=== PATIENT | male | born 1945 | race Caucasian/White ===

== ENCOUNTER 2017-02-02 05:06 | Inpatient (IN) | payer OTHER ==
--- NOTE | ~2017-02-02 | CN ---
Consultation Report [facility] [address] [place]. [address] NAME: GALLO VALENTINE : 49 STATUS : ADM Sandra PAT#: [id number] AGE: 71 ADM/REG DATE : 02/02/17 MR#: [id number] REPORT SERV DATE: 02/05/17 DICTATED BY: BLANK HOFFMAN DATE: 02/05/17 REPORT STATUS : Draft TRANSCRIBED BY: MODL DATE: 02/05/17 CONSULTATION REPORT DATE OF CONSULTATION: 02/05/2017 NURSE-PRACTITIONER WITH [facility] REASON FOR CONSULTATION: Severe mitral valve regurgitation. HISTORY OF PRESENT ILLNESS: This is a pleasant 71-year-old obese male, who has a history of coronary artery disease and paroxysmal atrial fibrillation. He was actually admitted at [facility] last week with shortness of breath and found to be in atrial fibrillation, had an accelerated rate. He underwent cardioversion at [facility] and was successfully cardioverted into sinus rhythm. He was discharged home on Thursday. About two to three days later, the patient says that he was at home and developed shortness of breath and fatigue again and presented to the emergency room at [facility] on 02/02/2017 for evaluation in the emergency room. The patient was found to be in atrial fibrillation with heart rate controlled. Chest x-ray did show pulmonary edema, and his creatinine was elevated up to 2.5, his baseline creatinine is around 1.5-1.6. The patient was admitted with acute exacerbation of congestive heart failure, acute kidney injury, and atrial fibrillation. The patient was taken for transthoracic echocardiogram yesterday which showed his ejection fraction is somewhere around 40% with apical hypokinesis and severe degeneration of his mitral valve with severe mitral regurgitation. The patient is currently not having any symptoms of shortness of breath or fatigue. He remains in atrial fibrillation but his heart rate is controlled in the 70s to 80s. His other vital signs are stable and is maintaining adequate O2 saturations on room air. His creatinine has been improving, but his INR is 2.6. Cardiology is awaiting for his INR to be lower so that they can take him for cardiac catheterization. Cardiothoracic Surgery was consulted for evaluation of mitral valve replacement with Maze plus or minus coronary artery bypass grafting. PAST MEDICAL HISTORY: Coronary artery disease, paroxysmal atrial fibrillation, type 2 diabetes mellitus, high blood pressure, erectile dysfunction, depression, hyperlipidemia, and distant CVA. PAST SURGICAL HISTORY: Only PCI in 2014. FAMILY HISTORY: Reviewed and noncontributory. SOCIAL HISTORY: Denies any history of alcohol abuse, use of illicit drugs, or alcohol. ALLERGIES: NO KNOWN DRUG ALLERGIES. HOME MEDICATIONS: Elavil 10 mg p.o. daily, amlodipine 10 mg p.o. daily, atorvastatin 20 mg Consultation Report [address] [address] NAME: GALLO VALENTINE : 49 STATUS : ADM Sandra PAT#: [id number] AGE: 71 ADM/REG DATE : 02/02/17 MR#: [id number] REPORT SERV DATE: 02/05/17 DICTATED BY: BLANK HOFFMAN DATE: 02/05/17 REPORT STATUS : Draft TRANSCRIBED BY: JUAN C DATE: 02/05/17 p.o. at bedtime, folic acid 1 mg p.o. daily, glipizide 10 mg twice a day, lisinopril 40 mg every morning, metformin 1500 mg p.o. twice a day, metoprolol succinate 50 mg p.o. twice a day, omega-3 fatty acid 1 g p.o. twice a day, tamsulosin 0.8 mg p.o. daily, Coumadin 4 mg p.o. daily, amiodarone 400 mg p.o. twice a day, and Lasix 40 mg p.o. daily. REVIEW OF SYSTEMS: A 10-point review of systems was obtained and is negative other than HPI. LABORATORY DATA: White blood cell count 6.2, hemoglobin 11.5, hematocrit 34.2, platelets 183. Sodium 144, potassium 3.7, chloride 108, bicarbonate 25, BUN 33, creatinine 2.0, glucose 139. PHYSICAL EXAMINATION: VITAL SIGNS: From today temperature 97.8, heart rate 75, blood pressure 128/89, respiratory rate 16, and O2 saturation 92% on room air. GENERAL: A pleasant obese male, in no acute distress. PSYCH: Normal mood, talkative, pleasant. NEURO: Alert and oriented x3. Pupils are equal, round, and reactive to light and accommodation. The patient exhibits moderate and equal strength bilateral upper extremities and bilateral lower extremities. HEENT: Head normocephalic and atraumatic. Nose midline with no abnormalities. Ears with no abnormalities. Teeth with good dentition overall. NECK: Supple with no thyromegaly or lymphadenopathy. LUNGS: Clear to auscultation bilaterally with normal effort. CARDIAC: S1, S2 with apical systolic murmur, atrial fibrillation with heart rate 75. ABDOMEN: Obese, soft, nontender, with active bowel sounds. EXTREMITIES: Free of cyanosis, clubbing, or edema. ASSESSMENT AND PLAN: This is a pleasant 71-year-old male with a history of coronary artery disease, congestive heart failure, paroxysmal atrial fibrillation. He has had two hospital admissions in the last week for shortness of breath and atrial fibrillation, underwent transesophageal echocardiogram yesterday which showed severe degeneration of his mitral valve with severe mitral valve regurgitation, an ejection fraction around 40%. CT Surgery has been consulted for evaluation of mitral valve repair versus replacement with Maze, but we are currently awaiting cardiac catheterization which cannot be performed at this time because the patient's INR is 2.6. We discussed the need for what most likely will be a mitral valve replacement with the patient and why we would need to wait for cardiac catheterization before proceeding with surgery, and he states understanding. STS stratification will be done once I know for sure what surgery we are needing. We will await cardiac catheterization to determine if he is going to need a mitral valve replacement with CABG or if his mitral valve surgery can be done minimally invasive. Dr. Reilly was present to discuss the surgery with the patient. We would like to thank you for the consultation, and we look forward to helping you take Consultation Report [address] [address] NAME: GALLO VALENTINE : 49 STATUS : ADM Sandra PAT#: [id number] AGE: 71 ADM/REG DATE : 02/02/17 MR#: [id number] REPORT SERV DATE: 02/05/17 DICTATED BY: BLANK HOFFMAN DATE: 02/05/17 REPORT STATUS : Draft TRANSCRIBED BY: JUAN C DATE: 02/05/17 care of Mr. Gallo Valentine. ANTHONY/JUAN C Blank Hoffman NP / [id number] CC: Jenna Mosley M.D. Tiago Olmos M.D.
--- NOTE | ~2017-02-02 | OP ---
Record Of Operation [facility] [address] [place]. [address] NAME: SARAN VALENTINE : 49 STATUS : ADM IN PAT#: [id number] AGE: 71 ADM/REG DATE : 02/02/17 MR#: [id number] REPORT SERV DATE: 02/12/17 DICTATED BY: VINNY MCKEE DATE: 02/11/17 REPORT STATUS : Draft TRANSCRIBED BY: MODGurinder DATE: 02/11/17 DATE OF PROCEDURE: 02/11/2017 PHOTOGRAPHIC SPECIALIST: Krishna Lacey. ANESTHESIOLOGIST: Christ Bradshaw MD. PREOPERATIVE DIAGNOSES: 1. Severe mitral regurgitation. 2. Persistent atrial fibrillation. 3. Coronary artery disease. 4. Chronic kidney disease, stage III. 5. Hypertension. 6. Hyperlipidemia. POSTOPERATIVE DIAGNOSES: 1. Severe mitral regurgitation. 2. Persistent atrial fibrillation. 3. Coronary artery disease. 4. Chronic kidney disease, stage III. 5. Hypertension. 6. Hyperlipidemia. OPERATION AND PROCEDURE PERFORMED: 1. Median sternotomy. 2. Extracorporeal circulation. 3. Mitral valve replacement with [address] Sam epic Biocor mitral valve. 4. Extensive right and left atrial CryoMaze. 5. Left atrial appendage clip with 40 mm AtriCure clip. 6. Transesophageal echo. 7. Prevena dressing placement. 8. Right internal jugular Vas-Cath placement. COMPLICATIONS: None. TUBES AND DRAINS: A 32-Luxembourgish straight chest tube in the mediastinum, atrial and ventricular wires. POSTOPERATIVE CONDITION: Critical to CVICU. The patient weaned from cardiopulmonary bypass on 5 of dobutamine, 7 of Levophed, and 0.375 of Milrinone. INTRAOPERATIVE FINDINGS: On transesophageal echo, there was no clot in the left atrial appendage. Mitral valve was tented at 1.2 cm. On transesophageal echo, there is poor mobility of the posterior leaflet. His EF was approximately 35% to 40% with hypokinesis of all prieto and dilated left ventricle. His postprocedure, the valve was well seated with no perivalvular leak. Record Of Operation [facility] [address] [place]. [address] NAME: SARAN VALENTINE : 49 STATUS : ADM IN PAT#: [id number] AGE: 71 ADM/REG DATE : 02/02/17 MR#: [id number] REPORT SERV DATE: 02/12/17 DICTATED BY: VINNY MCKEE DATE: 02/11/17 REPORT STATUS : Draft TRANSCRIBED BY: JUAN C DATE: 02/11/17 INTRAOPERATIVE ANATOMIC FINDINGS: The mitral valve had a tethered posterior leaflet with thickened and retracted leaflets, both anterior and posterior, and poor mobility of the leaflets. The valve was placed, was sized initially to a 31 mm Epic Biocor valve. Supraannular sutures were placed after resection of the most of the anterior leaflet. The posterior leaflet and the commissures were preserved during resection of the leaflet. The valve was sized to 31. A 20 pledgeted sutures were used. The sutures were passed through the sewing ring of the valve. The valve was lowered into position and the commissure post were anchored, and one other suture was anchored on the fifth cor-knot. The cor-knot device cut the suture, but did not deploy the chorda. In order to do this, the valve had to be removed. The four other cor-knots that have been fired were removed and the valve was removed from the heart. Four of the pledgets were found readily, the fifth pledget appeared to have been sucked up the Cell Saver. The valve stitches that had been removed were then replaced and placed back through the sewing ring of the valve, while the Cell Saver was disassembled off the table. The pledget was in the filter of the Cell Saver and the valve was attempted to be replaced. In order to get this cor-knots out, I had to remove the valve from its brock and was unable to get the valve back through the mitral annulus secondary to the fact that the post of the valve had sprung to a normal position. Unfortunately, there was no other mitral valve 31 mm Epic Bicor mitral valve available, so I downsized and went with a 29 valve. Sutures were removed from the sewing ring of the valve and then using a Luxembourgish-eye needle, placed back through the sewing ring 29 mm. A 29 mm valve was lowered into position and then using cor-knots was anchored into position. The details of the CryoMaze lesions were done. All lesions were done at -60 degrees for 2 minutes. First lesion was SVC to IVC lesion, second lesion was the right atrial appendage lesion, third lesion was at 2 o'clock across the tricuspid annulus lesion. Next lesion was the box lesion on the floor of the left atrium for a pulmonary vein isolation. This required 3 individual Cryo-Freezes. Next the lesion was across the box to the mitral anulus. The last lesion was across coronary sinus is an epicardial lesion, and the final portion of the procedure was a 40 mm atrial clip. INDICATIONS FOR PROCEDURE: Mr. Valentine is a 71-year-old gentleman with a history of coronary disease, who presented in congestive heart failure with flash pulmonary edema. He was able to undergo a heart catheterization secondary to his chronic kidney disease, was found to have clean coronaries, but severe MR on both HARDY echo and heart catheterization. The patient was attempted to be sent home, but, however, had a third episode of flash pulmonary edema, was kept in the hospital. He was seen. Risks, benefits, and alternatives were discussed, and the patient was brought to the operating room. STS risk score was discussed with the patient. Mortality of less than 10% and a morbidity mortality of less than 30% were discussed with the patient. All questions were answered. DETAILS OF PROCEDURE: The patient was brought to the operating room, placed supine on the operating room table. After satisfactory induction of general endotracheal anesthesia, he was prepped and draped in the usual sterile fashion. Median sternotomy was performed. Skin, subcutaneous tissues were divided, clavipectoral fascia was divided. The sternum was divided in the midline. Sternal retractor was placed. The thymic tissue was divided in midline. Pericardium was opened in the midline until the diaphragm. Pericardial well was created. Systemic heparinization was achieved. Ascending aorta was cannulated and the base Record Of Operation [address] [place]. [address] NAME: SARAN VALENTINE : 49 STATUS : ADM IN PAT#: [id number] AGE: 71 ADM/REG DATE : 02/02/17 MR#: [id number] REPORT SERV DATE: 02/12/17 DICTATED BY: VINNY MCKEE DATE: 02/11/17 REPORT STATUS : Draft TRANSCRIBED BY: JUAN C DATE: 02/11/17 of the innominate artery through dual pursestring. Antegrade root vent cardioplegia tack was placed and a dual stage venous cannula was placed in the pursestring on the right atrial appendage. After documentation of an adequate ACT, cardiopulmonary bypass was initiated. The right-sided Maze lesions were then performed as mentioned in the findings. The heart was then lifted and the left atrial appendage was sized to a 40 mm atrial clip. Cross-clamp was brought up. The heart was arrested with 2 L of cold crystalloid Custodiol cardioplegia. The Sondergaard's groove was developed and the left atrium was then opened. The heart was elevated and the atrial clip was then placed at the base of the left atrial appendage. The left atriotomy was extended and the cryolesions were then performed on the left atrial side as mentioned in the findings. Mitral valve retaining basket was then placed and the valve was inspected. The valve had tethered posterior leaflet with thickened and retracted anterior posterior leaflets with very poor mobility of the leaflet. The anterior leaflet was then quadrangularly resected for the large portion of the anterior leaflet. The chordal structures were preserved along the posterior leaflet and at the commissures. Twenty pledgeted sutures were placed with the pledgets on the ventricular side of the annulus. The valve was sized to a 31 mm valve. Sutures were placed through the sewing ring of the valve. The valve was lowered into position. Core-knots were used to anchor the valve. Unfortunately, the fifth cor-knot cut the suture, but did not fire the cor-knot, and the valve had to be removed. The brock had to be taken off the valve in order to get to the cor-knots. Four of the pledgets were easily found, the fifth pledget was appeared to be aspirated in the Cell Saver. While the Cell Saver was being disassembled outside the room in order to search for the pledget in the filter, the five pledgeted sutures were replaced and these were placed back through the sewing ring of the 31 valve. The valve was attempted to be lowered into position, however, could not get it through the annulus secondary to it being off the brock. Valve was then discarded, there was no other 31 mm valve so a 29 mm Epic Biocor was chosen. Sutures were placed through the sewing ring of the valve. The valve was lowered into position and then anchored into position using the cor-knots. 20 core knots were used. The valve was well seated. Did not appear to be any problem with the valve. The Olivia was placed across it and the left atrium was then closed in two layers. Atrial and ventricular pacing wires were placed. De-airing was performed and the cross- clamp was removed. The patient was loaded with milrinone, dobutamine was resumed, and Levophed was started. The patient was able to be weaned from cardiopulmonary bypass after interrogating the valve. The valve was well seated without a perivalvular leak. The Olivia was removed. The left atriotomy was completed. Vigorous de-airing maneuvers were performed prior to removing the Olivia. The aortic root vent was removed. The pursestring was tied down. The area was oversewn with 4-0 Prolene. The right atriotomy for the tricuspid annular lesion was again oversewn with a 4-0 Prolene. The patient was weaned from cardiopulmonary bypass. Protamine was administered. He appeared to be coagulopathic, 2 units of FFP and two 6 packs of platelets were administered. The patient appeared to be hemostatic. The aortic site was oversewn with 4-0 Prolene. The right atrial cannulation site was oversewn with 4-0 Prolene. A 32-Luxembourgish chest tube was exteriorized and placed under the sternum. Pericardium was loosely reapproximated using 2-0 silk. The sternum was then reapproximated using 8 stainless steel sternal wires. Some of these were double wires. Clavipectoral fascia was reapproximated using #1 Stratafix. Subcutaneous tissues were closed using Stratafix and the skin and subcutaneous tissues closed using 2-0 Quill. Prevena dressing was placed and the procedure was terminated. At the end of the procedure, the right IJ Vas-Cath was placed using modified Seldinger technique. The neck was prepped Record Of Operation [facility] [address] [place]. [address] NAME: SARAN VALENTINE : 49 STATUS : ADM IN [facility]#: [id number] AGE: 71 ADM/REG DATE : 02/02/17 MR#: [id number] REPORT SERV DATE: 02/12/17 DICTATED BY: VINNY MCKEE DATE: 02/11/17 REPORT STATUS : Draft TRANSCRIBED BY: MODL DATE: 02/11/17 and sangita. A guidewire was introduced into the right IJ under ultrasound guidance by Dr. Bradshaw. A wire was placed in the right atrium. Wire was visualized into the superior vena cava using ultrasound guidance. Following this, the tract was successively dilated over the wire and then a 14-Luxembourgish dual-lumen Vas-Cath cannula was placed, it was anchored in position, flushed, and the procedure was terminated. The patient was transferred to CVICU in critical, stable condition. [facility]/MALIKL Vinny Mckee MD / [id number] CC: Vinny Mckee MD
--- NOTE | ~2017-02-02 | CN ---
Consultation Report [facility] [address] [place]. [address] NAME: SARAN HAWKINS : 49 STATUS : ADM IN [facility]#: [id number] AGE: 71 ADM/REG DATE : 02/02/17 MR#: [id number] REPORT SERV DATE: 02/13/17 DICTATED BY: LASHONDA VEE DATE: 02/13/17 REPORT STATUS : Draft TRANSCRIBED BY: JUAN C DATE: 02/13/17 CONSULT NOTE DATE OF CONSULTATION: 02/13/2017 CONSULT REQUESTED BY: Dr. Reilly. REASON FOR CONSULT: Diabetes management, postop. HISTORY OF PRESENT ILLNESS: This is a 71-year-old gentleman with medical history significant for coronary artery disease, status post PCI in 2013, congestive heart failure, atrial fibrillation, diabetes mellitus type 2 on oral hypoglycemics at home, who presented to the hospital with complaints of worsening shortness of breath, found to have atrial fibrillation with RVR. He underwent a HARDY that shows severe mitral regurgitation. Also underwent a coronary angiogram, which showed nonocclusive coronary artery disease. Cardiovascular Surgery was consulted for mitral valve replacement. The patient underwent a mitral valve replacement surgery on 02/11/2017 with successful placement of [address] Sam epic Biocor mitral valve as well as an extensive right and left atrial CryoMaze procedure. Postop, the patient was placed on insulin drip for blood sugar control. Hospitalist Service was consulted to help in management of the patient's blood sugar control and transition from insulin drip to subcu insulin. The patient reports that he was diagnosed with type 2 diabetes mellitus about four years ago. Takes oral hypoglycemics, metformin and glipizide at home for blood sugar control. He reports that he does not monitor his blood sugar like is supposed to. He denies any hypoglycemic episode at home. He has not had any hypoglycemic episodes during the course of this admission. The patient denies any lightheadedness, dizziness, dysuria, flank pain. Denies any polyuria. REVIEW OF SYSTEMS: 12-point review of system conducted, essentially negative. PAST MEDICAL HISTORY: 1. Type 2 diabetes mellitus. 2. Coronary artery disease, status post anterior myocardial infarction with baseline ejection fraction of 50%. 3. Paroxysmal atrial fibrillation, severe mitral regurgitation. 4. History of hypertension. 5. Obstructive sleep apnea. 6. History of CVA without any residual deficit. 7. History of depression. 8. History of erectile dysfunction. 9. Dyslipidemia. Consultation Report [facility] [address] [place]. [address] NAME: SARAN HAWKINS : 49 STATUS : ADM IN PAT#: [id number] AGE: 71 ADM/REG DATE : 02/02/17 MR#: [id number] REPORT SERV DATE: 02/13/17 DICTATED BY: LASHONDA VEE DATE: 02/13/17 REPORT STATUS : Draft TRANSCRIBED BY: JUAN C DATE: 02/13/17 PAST SURGICAL HISTORY: Significant for previous PCI intervention. FAMILY HISTORY: Denies any family history of coronary artery disease, but has positive family history for diabetes and hypertension. SOCIAL HISTORY: The patient quit drinking alcohol several years ago. He reports that he has been abstaining from alcohol for about 30 years now. Denies smoking cigarettes or illicit drug use. ALLERGIES: NO KNOWN DRUG ALLERGIES. MEDICATIONS: Home medications on presentation to the hospital: 1. Amitriptyline 10 mg p.o. every morning. 2. Norvasc 10 mg p.o. daily. 3. Atorvastatin 20 mg p.o. morning. 4. Coreg 6.25 mg p.o. b.i.d. 5. Folic acid 1 mg p.o. daily. 6. Glipizide 20 mg p.o. every morning. 7. 10 mg of glipizide every evening. 8. Lisinopril 40 mg p.o. daily. 9. Glucophage 1500 mg p.o. b.i.d. 10.[place]-3 fatty acid 1000 mg p.o. daily. 11.Tamsulosin 0.8 mg p.o. daily. 12.Amiodarone 400 mg p.o. b.i.d. 13.Aspirin 81 mg p.o. daily. 14. mg p.o. p.r.n. PHYSICAL EXAMINATION: VITAL SIGNS: Blood pressure 105/57 mmHg, heart rate 62 beats per minute, temperature 99, saturating 96% on 2 L of oxygen. GENERAL: Alert and oriented, not in any acute distress. HEENT: Extraocular muscles intact. Pupils equal, round, and reactive. Not pale. Anicteric. NECK: A right internal jugular central line catheter in place. CHEST: Surgical sternotomy scar in place with dressing intact. LUNGS: Clear to auscultation bilaterally. HEART: Regular rate and rhythm. S1, S2. No murmurs. ABDOMEN: Bowel sounds normoactive. Obese. No palpably enlarged organomegaly. EXTREMITIES: Lower extremities, no pedal edema. LABORATORY DATA: Serum sodium 134, potassium 4.7, chloride 104, bicarb 19, BUN 53, creatinine 2.54. Calcium 7.9, magnesium 2.6, phosphorus 5.2. TSH 2.1. Free T4 is 0.9. A1c 6.4. Hematology WBC 7.1, hemoglobin 8.8, platelets 156. ASSESSMENT: This is a 71-year-old gentleman with medical history significant for congestive Consultation Report [address] [place]. [address] NAME: SARAN HAWKINS : 49 STATUS : ADM IN [facility]#: [id number] AGE: 71 ADM/REG DATE : 02/02/17 MR#: [id number] REPORT SERV DATE: 02/13/17 DICTATED BY: LASHONDA VEE DATE: 02/13/17 REPORT STATUS : Draft TRANSCRIBED BY: JUAN C DATE: 02/13/17 heart failure, paroxysmal atrial fibrillation, severe mitral regurgitation, successfully undergone a mitral valve replacement surgery postop. Currently tolerating p.o., now on insulin drip. Blood sugars remained stable. At this time, I will recommend the patient to be started on subcutaneous insulin of Levemir 12 units and continue aspart 3 units premeal as well as level 2 sliding scale and to continue to monitor blood glucose Accu-Chek a.c. plus h.s. Also, we will recommend ADA 1800 calorie diet. The patient can be started on hypoglycemic protocol. We will continue to monitor blood sugar closely. The Hospitalist Service will continue to follow the patient for diabetes management during the course of this admission. Thank you very much for this interesting consult. UMESHO/JUAN C Lashonda Vee MD / [id number] CC: Jenna Mosley M.D.
--- NOTE | ~2017-02-02 | HP ---
History And Physical [address] [place]. [address] NAME: SARAN VALENTINE : 49 STATUS : ADM Sandra PAT#: [id number] AGE: 71 ADM/REG DATE : 02/02/17 MR#: [id number] REPORT SERV DATE: 02/02/17 DICTATED BY: ARPIT PEREZ DATE: 02/02/17 REPORT STATUS : Draft TRANSCRIBED BY: MODL DATE: 02/02/17 DATE OF ADMISSION: 02/02/2017 CARDIOLOGY ADMISSION HISTORY AND PHYSICAL IDENTIFYING DATA: The patient is a 71-year-old man with history of anterior myocardial infarction, status post PCI in the year 2013, as well as multiple other medical problems including paroxysmal atrial fibrillation. CHIEF COMPLAINT: The patient is admitted with a two- to three-day history of progressive weakness and exertional dyspnea, associated with indigestion type epigastric pain. HISTORY OF PRESENT ILLNESS: Mr. Valentine is a pleasant 71-year-old man, who is well known to me from [facility]. The patient was in his usual state of health until about five days ago. The patient had last been seen in [facility] in November of 2016. At that time, he was asymptomatic. About five days ago, the patient presented to [facility] Emergency Room with the abrupt onset of weakness and shortness of breath. He was found to be in atrial fibrillation with a rapid ventricular response. According to my discussions with the emergency room physician at [facility], the patient's ventricular rate had initially been in the 150 to 160 range, though this improved with medical therapy. The physician at [facility] did not report any evidence of acute systolic heart failure at that time. On my recommendation, the patient underwent DC cardioversion with nondenominational of normal sinus rhythm. He was started on amiodarone at a dose of 400 mg p.o. twice daily. The patient was discharged to home. About two to three days following discharge from [facility] Emergency Room, the patient had recurrence of fatigue and dyspnea. The patient reports that he was taking extra Lasix because of these symptoms. He has been taking 40 mg daily, but was taking an extra two to three tablets due to his symptoms. When the patient failed to get relief, he finally presented to [facility] Emergency Room. The patient was again found to be in atrial fibrillation, though at this point, his heart rate appears to be well controlled. The patient was found to have acute pulmonary edema on his x-ray, however. The patient was complaining of abdominal discomfort, but his troponin I is normal at less than 0.03. At this time, the patient reports his symptoms are improving. He is on nasal cannula oxygen, but denies any orthopnea. He denies any weight gain and reports that he has in fact been loosing weight with his increased Lasix dosing. The patient does have a history of obstructive sleep apnea, but is compliant with CPAP and reports that he has been using it normally as prescribed. The patient has a history of distant alcohol use, but he has had no recent alcohol use. He denies fever, chills, or nausea, aside from a "burping" associated with his epigastric discomfort which has now resolved. PAST MEDICAL HISTORY: 1. Type 2 diabetes. 2. Coronary artery disease, status post anterior myocardial infarction with baseline ejection fraction of 50%. 3. Paroxysmal atrial fibrillation. 4. History of hypertension. History And Physical [address] [address] NAME: SARAN VALENTINE : 49 STATUS : ADM Sandra PAT#: [id number] AGE: 71 ADM/REG DATE : 02/02/17 MR#: [id number] REPORT SERV DATE: 02/02/17 DICTATED BY: ARPIT PEREZ DATE: 02/02/17 REPORT STATUS : Draft TRANSCRIBED BY: JUAN C DATE: 02/02/17 5. Obstructive sleep apnea. 6. Distant history of stroke with minimal residual deficit. 7. History of depression. 8. Erectile dysfunction. 9. Dyslipidemia. PAST SURGICAL HISTORY: Significant for previous percutaneous coronary intervention as described above. Surgical history is otherwise noncontributory. FAMILY HISTORY: Negative for early coronary heart disease or sudden cardiac . SOCIAL HISTORY: At this time, the patient has no significant history of tobacco, alcohol, or drug use. ALLERGIES: THE PATIENT HAS NO KNOWN MEDICATION ALLERGIES. HOME MEDICATIONS: 1. Elavil 10 mg p.o. q.a.m. 2. Amlodipine 10 mg p.o. q.a.m. 3. Atorvastatin 20 mg p.o. at bedtime. 4. Folic acid 1 mg p.o. daily. 5. Glipizide 10 mg p.o. twice daily. 6. Lisinopril 40 mg p.o. q.a.m. 7. Metformin 1500 mg p.o. twice daily. 8. Metoprolol succinate 50 mg p.o. twice daily. 9. [place]-3 fatty acid supplement 1 g p.o. twice daily. 10.Tamsulosin 0.8 mg p.o. daily. 11.Coumadin 4 mg p.o. daily. 12.Amiodarone 400 mg p.o. twice daily. 13.Lasix 40 mg p.o. daily. REVIEW OF SYSTEMS: A complete 12-system review was performed. This is noncontributory except for the pertinent positives and negatives noted in the history of present illness above. PHYSICAL EXAMINATION: VITAL SIGNS: Temperature is 97.7 degrees Fahrenheit, blood pressure is 100/58 mmHg, heart rate is 81 beats per minute and irregular, respirations 20, oxygen saturation is currently 98% on a 2 L nasal cannula. CONSTITUTIONAL: The patient is an overweight white man, who is presently in no acute distress and breathing easily. CARDIOVASCULAR: There is an irregularly irregular rhythm with a variable S1 and a widely split second heart sound. There is a 1/6 regurgitant murmur heard at the apex and at the left sternal border. The jugular venous pressure, however, appears normal at less than 5 cm. PULMONARY: There are scattered bibasilar rales noted, however, the lungs are otherwise grossly clear to auscultation bilaterally with no wheezing or rhonchi noted. History And Physical [address] [address] NAME: SARAN VALENTINE : 49 STATUS : ADM Sandra PAT#: [id number] AGE: 71 ADM/REG DATE : 02/02/17 MR#: [id number] REPORT SERV DATE: 02/02/17 DICTATED BY: ARPIT PEREZ DATE: 02/02/17 REPORT STATUS : Draft TRANSCRIBED BY: MODL DATE: 02/02/17 ABDOMEN: Soft, obese, nontender with no gross hepatosplenomegaly noted. EXTREMITIES: There is no significant clubbing, cyanosis, or edema noted at this time. IMAGIN-lead EKG: The patient's 12-lead EKG shows atrial fibrillation with a right bundle branch block pattern and a left posterior fascicular block pattern. Ventricular rate is 74 beats per minute. The QT interval appears grossly normal. Chest x-ray: The patient's chest x-ray is consistent with moderate acute pulmonary edema, with no other acute cardiopulmonary process noted. LABORATORY DATA: CBC shows a white blood cell count of 8.7, hemoglobin 11.0, hematocrit 33, platelets 194. INR is 2.5. Chemistry profile shows a sodium of 141, potassium 3.9, chloride is 108, CO2 is 19, BUN 29, creatinine is 2.53, glucose is 129, calcium 8.0, magnesium is 1.3. Troponin I is normal at 0.03. A B-type natriuretic peptide is elevated at 387. ABG shows a pH of 7.40, pCO2 of 30, pO2 of 78. ASSESSMENT AND PLAN: 1. Acute congestive heart failure, not otherwise specified: The patient's baseline ejection fraction is 50%. He has not previously had a history of congestive heart failure. I feel the patient's congestive heart failure was likely precipitated by his recent bout of atrial fibrillation with a rapid ventricular response. It is possible that the patient's atrial fibrillation has been present for several days and that his ventricular rate was initially higher, which may have precipitated his recurrent symptoms. At this time, the patient appears euvolemic aside from his chest x-ray findings. The patient's shortness of breath has improved. Given his acute renal failure, and his otherwise apparently euvolemic state, I will hold the Lasix for now. We will check a basic metabolic profile tomorrow and consider a repeat x-ray. A repeat echocardiogram will be obtained as soon as possible to evaluate for any valvular dysfunction or worsening of the patient's left ventricular systolic function. For now, the patient will continue Coumadin for stroke prophylaxis. 2. Coronary artery disease, with possible angina: Again, the patient's indigestion type discomfort is most likely precipitated by atrial fibrillation and congestive heart failure. However, if the patient has had a significant worsening of his left ventricular systolic function, it may be necessary to consider repeat coronary angiography provided the patient's renal function improves. The patient will continue aspirin 81 mg daily as well as atorvastatin. 3. Hypomagnesemia: This may be responsible for contributing to the patient's recurrent atrial fibrillation. The patient will be repleted with IV and p.o. magnesium. We will recheck a magnesium level tomorrow. 4. Acute renal failure: Possibly due to hypertension or over diuresis. The patient will discontinue metformin, lisinopril, and Lasix until his renal function is improving. The patient's baseline creatinine is approximately 1.5 to 1.6. 5. Obstructive sleep apnea: We will continue to treat with his home CPAP regimen as tolerated. 6. Hypertension: Controlled for now. The patient did have some medication changes made after [place]. We will hold amlodipine and lisinopril as outlined above. The patient has been transitioned from carvedilol to metoprolol apparently. History And Physical [address] [address] NAME: SARAN VALENTINE : 49 STATUS : ADM Sandra PAT#: [id number] AGE: 71 ADM/REG DATE : 02/02/17 MR#: [id number] REPORT SERV DATE: 02/02/17 DICTATED BY: ARPIT PEREZ DATE: 02/02/17 REPORT STATUS : Draft TRANSCRIBED BY: MODL DATE: 02/02/17 7. Type 2 diabetes: We will hold metformin given the acute renal failure and continue with sliding scale insulin. [facility]/MODL Arpit Perez MD / [id number] CC: Simone Pro M.D.
--- NOTE | ~2017-02-02 | DS ---
Discharge Summary [facility] [address] [facility] [place]. [address] NAME: SARAN HAWKINS : 49 STATUS : DIS IN PAT#: [id number] AGE: 71 ADM/REG DATE : 02/02/17 MR#: [id number] REPORT SERV DATE: 03/04/17 DICTATED BY: ARPIT PEREZ DATE: 03/02/17 REPORT STATUS : Draft TRANSCRIBED BY: JUAN C DATE: 03/02/17 Data Collection from hospitalization DISCHARGE DIAGNOSES: 1. Severe mitral regurgitation, status post mitral valve replacement. 2. Chronic systolic congestive heart failure. 3. Atrial fibrillation. 4. Acute/chronic renal disease. 5. Urinary retention. 6. Sick sinus syndrome, status post permanent pacemaker. 7. Type 2 diabetes. 8. Hypertension. 9. History of remote cerebrovascular accident. 10.Erectile dysfunction. 11.Depression. 12.Hyperlipidemia. CONSULTATIONS: Dr. Malcom Ponce, Dr. Oneida Burgess, Dr. Mariela Payton, Dr. Lashonda Lacy, and Dr. Isidoro Pratt. PROCEDURES: 1. Cardiac catheterization, 02/06/2017. 2. Median sternotomy, extracorporeal circulation, mitral valve replacement with 29 mm [place] Epic Biocor mitral valve, extensive right and left atrial CryoMaze, left atrial appendage clip with 40 mm AtriCure clip, transesophageal echocardiogram, Prevena dressing placement, right internal jugular Vas-Cath placement, 02/11/2017. 3. Pacemaker implantation, 02/16/2017. 4. Renal ultrasound, 02/09/2017. PATHOLOGY: Mitral valve - delicate leaflets, no vegetations present and no calcification. DISCHARGE MEDICATIONS: Elavil 10 mg every morning, aspirin 81 mg daily, Lipitor 40 mg at bedtime, Cordarone 200 mg twice a day for thirty days, Coreg 3.125 mg twice a day as instructed, Colace 200 mg daily, folic acid 1 mg daily, Senokot two tablets at bedtime, Aldactone 12.5 mg daily, Flomax 0.8 mg daily, Viagra 50 mg as needed, insulin 70/30 as instructed, warfarin 4 mg in the evening as instructed. CONDITION ON DISCHARGE: Stable. DISPOSITION: The patient was discharged to [facility] on a low-sodium diet with 2 L fluid restriction and activities as instructed. He would follow up with Hemalatha Menjivar, nurse- practitioner with Nephrology 03/04/2017. He would follow up with Dr. Vinny Reilly, 03/03/2017. He would follow up in the [facility], 03/09/2017. He would follow up with Dr. Gonzales of Urology three to four weeks following discharge. He would follow up with Dr. Arpit Olmos two weeks following discharge. He would follow up with Dr. Arpit Perez, 03/30/2017. HOSPITAL COURSE: This is a 71-year-old man who has a history of anterior myocardial Discharge [address] [address] NAME: SARAN HAWKINS : 49 STATUS : DIS IN PAT#: [id number] AGE: 71 ADM/REG DATE : 02/02/17 MR#: [id number] REPORT SERV DATE: 03/04/17 DICTATED BY: ARPIT PEREZ DATE: 03/02/17 REPORT STATUS : Draft TRANSCRIBED BY: JUAN C DATE: 03/02/17 infarction, status post percutaneous coronary intervention in 2013 as well as multiple other medical problems including paroxysmal atrial fibrillation. He had been in his usual state of health until about five days prior to this admission. He was last seen in the Cardiology Clinic in 11/2016. At that time, he was asymptomatic. About five days prior to this admission, he presented to [facility] Emergency Room with the abrupt onset of weakness and shortness of breath. He was found to be in atrial fibrillation with rapid ventricular response. According to the emergency room physician at [facility], his ventricular rate had initially been in the 150 to 160 range, although this improved with medical therapy. The physician at [facility] did not report any evidence of acute systolic heart failure at that time. On my recommendation, the patient underwent DC cardioversion with catholic of normal sinus rhythm. He was started on amiodarone at a dose of 400 mg twice a day. The patient was discharged home about two or three days. Following discharge from [facility] Emergency Room, the patient had recurrence of fatigue and dyspnea. The patient reports that, he was taking extra Lasix, because of the symptoms he had been taking 40 mg daily, but was taking an extra two to three tablets due to his symptoms. When the patient failed to get relief, he finally presented to the [facility] Emergency Room. He was again found to be in atrial fibrillation, although at this point his heart rate appeared to be well controlled. He was found to have acute pulmonary edema on his x-rays, however he was also complaining of abdominal discomfort, but his troponin I was less than 0.03. At this point in time, the patient reports that his symptoms were improving. He was on nasal cannula oxygen, but denied orthopnea. He denies any weight gain and reported that he had in fact been losing weight with his increased Lasix dosing. The patient does have a history of obstructive sleep apnea, but is compliant with CPAP and reports that he had been using it normally as prescribed. He has a history of distant alcohol use. He had had no recent alcohol use. He was admitted to the hospital at this time for further evaluation and treatment. Upon admission, the patient was felt to have acute congestive heart failure. Baseline ejection fraction was 50%. He did not have a previous history of congestive heart failure. It was felt that his congestive heart failure was likely precipitated by his recent bout of atrial fibrillation with rapid ventricular response. It is possible that the patient's atrial fibrillation had been present for several days and that his ventricular rate was initially higher which may have precipitated his recurrent symptoms. At this time, the patient appeared euvolemic aside from his chest x-ray findings, shortness of breath had improved. Given the acute renal failure and otherwise apparently euvolemic state, we would hold Lasix for now. We were going to be check BMP and consider repeat chest x-ray. Repeat echocardiogram would be obtained as soon as possible to evaluate for any valvular dysfunction or worsening of the patient's left ventricular systolic function. Coumadin was continued for now for stroke prophylaxis. It was felt that if the patient had significant worsening of left ventricular systolic function, it may be necessary to consider repeat coronary angiography provided that the patient's renal function improved. Aspirin was continued as well as atorvastatin. The patient does have hypomagnesemia. This would be repleted with IV and oral magnesium. We would check a magnesium level the following day. It was felt that the patient's acute renal failure was possibly due to hypertension or over diuresis. Metformin, lisinopril, and Lasix would be discontinued until renal function was improving. His baseline creatinine is approximately 1.5 to 1.6. Creatinine at this time was 2.53. For his obstructive sleep apnea, he would continue on his home CPAP as tolerated, Discharge Summary [facility] [address] [place]. [address] NAME: SARAN HAWKINS : 49 STATUS : DIS IN PAT#: [id number] AGE: 71 ADM/REG DATE : 02/02/17 MR#: [id number] REPORT SERV DATE: 03/04/17 DICTATED BY: ARPIT PEREZ DATE: 03/02/17 REPORT STATUS : Draft TRANSCRIBED BY: JUAN C DATE: 03/02/17 blood pressure was controlled for now. Amlodipine and lisinopril would be held. He was transitioned from carvedilol to metoprolol. Metformin would be held given the acute renal failure and we would continue sliding scale insulin. The following day, an echocardiogram was performed. The patient did have some ongoing shortness of breath, during the night he had difficulty sleeping. He had no other complaints. Echocardiogram revealed left ventricular ejection fraction of 40%. He also has moderate, at least and possibly severe mitral regurgitation. Lasix was started. Low-dose hydralazine was going to began. Renal failure was improving. On , his dyspnea had improved. He no longer required nasal cannula O2. He does have trace pedal edema. Coumadin was placed on hold. The patient was ambulating in the halls. He denied chest pain, shortness of breath, nausea, vomiting, or abdominal pain. He reports that he was feeling well. His only complaint was constipation, for which he had received stool softener. Blood pressure was well controlled. Troponins were negative. It was felt that the patient would need to undergo cardiac catheterization once his INR level was less than 1.6. He was seen by Dr. Malcom Ponce regarding severe mitral valve regurgitation. He was going to undergo a cardiac catheterization once his INR level had decreased. His INR level at this time was 2.6. Creatinine was improving. We have been asked to consult the patient regarding evaluation of mitral valve replacement with Maze, plus or minus coronary artery bypass grafting. We felt that we would need to await cardiac catheterization results, which could not be performed at this time because of the INR level being 2.6. He discussed the need for what most likely would be mitral valve replacement with the patient and why we would need to wait for cardiac catheterization prior to proceeding with surgery and he said he understood. He would await cardiac catheterization to determine, if he was going to need a mitral valve replacement with coronary artery bypass grafting or if his mitral valve surgery could be done minimally invasive. On 02/06/2017, the patient was taken to the cardiac energy systems laboratory director, where he underwent the above-mentioned procedure. He tolerated this well. There were no complications. He had no chest pain or shortness of breath. The patient was euvolemic. Lasix was continued as well as Coreg. Coumadin was going to be restarted. On 02/07/2017, the patient was seen by Dr. Oneida Burgess. The patient was on the telemetry floor, but went into respiratory distress, pulmonary edema, and became hypertensive. He was given Bumex, hydralazine was tried, and a nitroglycerin drip was ordered. The patient was subsequently transferred to the CCU for further care. Upon arrival to the unit, the patient was in extreme respiratory failure, BiPAP was applied immediately. Olivia catheter was placed. Additional Bumex was given. The patient seemed to have improved with these measures. We were hopeful that the patient would not need to be intubated. The patient was going to be held n.p.o. and he would be kept on sliding scale insulin. Blood pressure would be controlled with nitroglycerin drip, as that was ineffective, we could start Cardene. It was suspected that his hypertension was more than likely secondary to respiratory distress and would resolve itself once he was diuresed and the excess water was removed. Amiodarone was continued for atrial fibrillation. He was also seen by Dr. Talita Payton regarding chronic kidney disease with acute kidney injury and acute pulmonary edema. Creatinine level was 2.07. Chest x-ray showed acute pulmonary edema. He was felt to have acute kidney injury on chronic kidney disease stage 3 versus progression of chronic kidney disease. IV Bumex continued. A renal ultrasound was requested. Urinalysis and spot urine protein creatinine were going to be checked. He was felt to be at a moderate to high risk for requiring transient dialysis with valve replacement. He would likely need intraoperative Vas-Cath. A PICC line was inserted. Plans were being made to move the patient to a telemetry bed the Discharge Summary [address] [place]. [address] NAME: SARAN HAWKINS AMANDA : 49 STATUS : DIS IN PAT#: [id number] AGE: 71 ADM/REG DATE : 02/02/17 MR#: [id number] REPORT SERV DATE: 03/04/17 DICTATED BY: ARPIT PEREZ DATE: 03/02/17 REPORT STATUS : Draft TRANSCRIBED BY: JUAN C DATE: 03/02/17 following morning for surgical planning. On 02/08/2017, he was feeling much better. He had no dyspnea or chest pain. He had a mild headache. Heart rate was in the 80s. Nitroglycerin paste was discontinued. Bumex was adjusted. He was going to be transferred to the floor. Olivia catheter was going to be removed. On 02/09/2017, he said he felt well, he had no complaints. He wants to try and proceed with surgery this admission if possible. It was felt that he would need to undergo mitral valve replacement. His breathing had improved. Creatinine level was decreasing. He did have some constipation. Heparin was being provided for stroke prophylaxis. Aspirin and atorvastatin were continued. He was going to be changed to oral Bumex. On 02/11/2017, he had had some constipation with urinary retention. His abdomen was soft, it was distended, but nontender. He had positive bowel sounds. Olivia catheter was in place. A Vas-Cath would be placed at surgery. He was taken to the cardiac energy systems laboratory director, where he underwent the above-mentioned procedure. He tolerated this well and there were no complications. The following day, he had some incisional discomfort, he had a poor appetite. He was up sitting in a bedside chair. He had no shortness of breath. Creatinine level was 2.47. He was in a sinus rhythm. Nitroglycerin was being weaned. Dobutamine was being weaned. Diuresis continued. He had had a renal ultrasound performed. He was on an insulin drip. On , his creatinine had increased to 2.54. On 02/13/2017, he was seen in consultation by Dr. Lashonda Lacy, regarding diabetes management. Postoperatively, the patient had been placed on an insulin drip for blood sugar control. The hospitalist service was consulted to help in management of the patient's blood sugar control and transition from insulin drip to subcutaneous insulin. The patient was diagnosed with type 2 diabetes about four years previously. He takes oral hypoglycemics, metformin, and glipizide at home for blood sugar control. He reports that he does not monitor his blood sugar like he is supposed to. He denies any episodes of hypoglycemia at home. He had not had any hypoglycemic episodes during the course of this admission. At this time, we recommended that the patient be started on subcutaneous insulin with Levemir and continue aspart as well as level 2 sliding scale insulin. He recommended a diabetic diet. The patient would be started on hypoglycemic protocol. We would monitor blood sugars closely. Routine postop care continued. Metolazone and Bumex were continued for volume overload. Pacing wires were removed. Telemetry revealed sinus rhythm with type 1 second-degree AV block. Changed to oral diuretics. Levemir was increased. He was seen by Dr. Isidoro Pratt. The patient had no chest pain or shortness of breath. We have been asked to see the patient regarding atrial fibrillation, bradycardia, and wide QRS. Beta-blockers and amiodarone had been discontinued. Despite this, he had progressive bradycardia. He was transitioned back to atrial fibrillation with periods of sick sinus syndrome and complete heart block with regularization of the R-R interval and underlying ventricular/possible junctional escape. This had been ongoing for greater than twenty four hours. At this point, he had symptoms of fatigue, effort intolerance, and weakness. Creatinine level was 2.5. The ECG revealed atrial fibrillation with probable complete AV block, heart rate of 42 beats per minute with right bundle-branch block pattern. QRS duration 176 milliseconds. It was felt that the patient would need placement of a cardiac resynchronization pacemaker. He agreed to proceed. Afterwards, we would resume Coreg and amiodarone and consider cardioversion in the future. Warfarin would be started after the procedure. The patient was taken to the cardiac laboratory, where he underwent the above-mentioned procedure by Dr. Isidoro Pratt, he tolerated this well, and there were no complications. Vas-Cath was going to be Discharge Summary [address] [address] NAME: SARAN HAWKINS : 49 STATUS : DIS IN PAT#: [id number] AGE: 71 ADM/REG DATE : 02/02/17 MR#: [id number] REPORT SERV DATE: 03/04/17 DICTATED BY: ARPIT PEREZ DATE: 03/02/17 REPORT STATUS : Draft TRANSCRIBED BY: MODGurinder DATE: 03/02/17 removed soon. Potassium supplementation was given. Renal function was stable at this point. Laxatives were continued as well as fleets enema. On 02/17/2017, he was awake and alert. He had no new complaints. His lungs were clear. Vas-Cath was going to be removed. Supportive care continued. He still had some constipation, began to have bowel movements. He was ambulatory. He was evaluated by Occupational and Physical Therapy. Discharge planning was performed. Olivia catheter was removed. Renal function was approaching baseline. INR level was 2.3. He underwent diabetes education. He said, he was feeling better. He had no edema. Discharge planning continued. The PICC line was going to be removed. Renal function was stable. He was in atrial fibrillation on telemetry. Constipation had resolved. On 02/20/2017, he was alert and cooperative. Creatinine level was 2.20, 70/30 insulin was increased. Renal function was stable. He was able to void. He had no further constipation. He could ambulate without assistance. Telemetry revealed atrial fibrillation. Consideration would be given for DC cardioversion about one month if the patient did not spontaneously convert. Discharge instructions were given. Due to his improved and stable condition, he was discharged to [facility] with the above-stated instructions. Information collected by: Veronika Pelayo I submit the above information as my discharge summary. TG/MODL Arpit Perez MD / [id number] CC: Jenna Mosley M.D. Arpit Olmos M.D. Isidoro Pratt M.D. Mariela Payton M.D. [facility]
--- NOTE | ~2017-02-02 | CN ---
Consultation Report [facility] [address] [place]. [address] NAME: SARAN VALENTINE : 49 STATUS : ADM Sandra PAT#: [id number] AGE: 71 ADM/REG DATE : 02/02/17 MR#: [id number] REPORT SERV DATE: 02/07/17 DICTATED BY: MARIELA GRACE DATE: 02/07/17 REPORT STATUS : Draft TRANSCRIBED BY: MODL DATE: 02/07/17 NEPHROLOGY CONSULTATION DATE OF CONSULTATION: 02/07/2017 REASON FOR CONSULTATION: Chronic kidney disease with acute kidney injury and acute pulmonary edema. HISTORY OF PRESENT ILLNESS: Mr. Valentine is a 71-year-old white male with past medical history of hypertension, coronary artery disease, chronic kidney disease, diabetes mellitus, who was admitted on 02/02/2017 to the Cardiology Service with chief complaint of exertional dyspnea and weakness. He was found to be in atrial fibrillation with rapid ventricular response and subsequently underwent cardioversion with baptism of normal sinus rhythm from [facility]. He went home. He became more fatigued and short of breath. Took additional Lasix and did not receive any relief and then presented to [facility] ER. The patient was in atrial fibrillation, pulmonary vascular congestion. He has a known history of prior myocardial infarction and had previous ejection fraction documented to be around 50%. During the course of his workup, he was found to have severe mitral regurgitation by transesophageal echo. His estimated ejection fraction at that time was 40%. Apical hypokinesis was noted and he underwent cardiac catheterization yesterday, which showed nonocclusive coronary artery disease. The plan was for the patient to be discharged home, but he developed respiratory distress with pulmonary edema and hypertension and was transferred to the ICU last night. He was given parenteral Bumex and is now feeling better, although still somewhat dyspneic. He reports no knowledge of chronic kidney disease other than what he was told this hospitalization. His baseline creatinine dating back to 11/2014 was 1.73. On admission was 2.5 and improved to 2.0 precatheterization. He did have a positive urine microalbumin level back in 2012. He has never seen a education research analyst. PAST MEDICAL HISTORY: 1. Diabetes mellitus type 2. 2. Chronic kidney disease stage 3. 3. Obstructive sleep apnea. 4. Coronary artery disease, status post anterior myocardial infarction. 5. Cardiomyopathy. 6. Paroxysmal atrial fibrillation, recurrent. 7. Hypertension. 8. History of CVA. 9. Hyperlipidemia. 10.Depression. 11.Erectile dysfunction. FAMILY HISTORY: No significant coronary or renal disease. SURGICAL HISTORY: The patient had a PCI in 2013. Consultation Report [facility] [id number] [facility] [place]. [address] NAME: SARAN VALENTINE : 49 STATUS : ADM Sandra PAT#: [id number] AGE: 71 ADM/REG DATE : 02/02/17 MR#: [id number] REPORT SERV DATE: 02/07/17 DICTATED BY: MARIELA GRACE DATE: 02/07/17 REPORT STATUS : Draft TRANSCRIBED BY: JUAN C DATE: 02/07/17 SOCIAL HISTORY: No present history of alcohol or illicit drug use. He used to be a heavy smoker and alcohol user, but has been abstinent for over 30 years. REVIEW OF SYSTEMS: All systems reviewed, negative excluding those mentioned and highlighted in the history of present illness. His primary complaint is shortness of breath. CURRENT MEDICATIONS: 1. Apresoline 10 mg q.6. 2. Flomax 0.8 daily. 3. Folic acid 1 daily. 4. Lipitor 20 daily. 5. Elavil 10 daily. 6. Aspirin 81 daily. 7. Promega one cap b.i.d. 8. Coreg 6.25 twice a day. 9. Magnesium oxide 400 twice a day. 10.Cordarone 200 b.i.d. PHYSICAL EXAMINATION: VITAL SIGNS: Blood pressure 173/88, O2 saturations 100%, temperature 99.3, pulse 83, respiratory rate 18. GENERAL: This is a pleasant elderly white male, looks older than stated age, resting comfortably, although with mild dyspnea. HEENT: Normocephalic, atraumatic. Oropharynx clear. No exudate. NECK: Supple. No JVD or thyromegaly. No carotid bruits. Trachea midline. No stridor. CARDIOVASCULAR: Irregular S1, S2. Atrial fibrillation by monitor. No rub or gallop. Point of maximal impulse nondisplaced. RESPIRATORY: Bibasilar rales with mild tachypnea. No accessory muscles in use. GI: Abdomen obese, soft, nontender, nondistended. No hepatosplenomegaly appreciated. Bowel sounds positive over four quadrants. EXTREMITIES: No cyanosis, clubbing or edema. Distal pulses 2+ symmetrically intact. SKIN: No rash or breakdown. Normal turgor. NEURO: Cranial nerves 2 through 12 grossly intact. Motor sensory examinations within normal limits. LYMPH: No supraclavicular, cervical, inguinal, or axillary adenopathy. LABS AND DIAGNOSTIC DATA: Sodium 140, potassium 4.7, chloride 106, bicarb 24, BUN 40, creatinine 2.07, glucose 315. ABG pH 7.39, pCO2 is 31, PO2 is 175, oxygen saturation 98% on 100% FiO2. Chest x-ray shows acute pulmonary edema. ASSESSMENT: 1. Acute kidney injury on chronic kidney disease stage 3 versus progression of chronic kidney disease-serum creatinine stable at 2.0. Consultation Report [address] [address] NAME: SARAN VALENTINE : 49 STATUS : ADM Sandra PAT#: [id number] AGE: 71 ADM/REG DATE : 02/02/17 MR#: [id number] REPORT SERV DATE: 02/07/17 DICTATED BY: MARIELA GRACE DATE: 02/07/17 REPORT STATUS : Draft TRANSCRIBED BY: JUAN C DATE: 02/07/17 2. Severe mitral regurgitation with systolic congestive heart failure, ejection fraction 40%. 3. Acute pulmonary edema. 4. Coronary artery disease. 5. Atrial fibrillation. 6. Diabetes mellitus type 2. PLAN: 1. Bumex 2 mg IV q.6 hours and adjust accordingly. 2. Renal ultrasound. 3. Urinalysis, spot urine protein creatinine. 4. The patient is at moderate to high risk for requiring transient dialysis with valve replacement. He would likely need intraoperative Vas-Cath. We will follow with you. Thank you for this consultation. MIRTA/JUAN C Mariela Grace M.D. / [id number] CC: Jenna Mosley M.D.
--- NOTE | ~2017-02-02 | CN ---
Consultation Report [facility] [address] [place]. [address] NAME: SARAN HAWKINS : 49 STATUS : ADM Sandra PAT#: [id number] AGE: 71 ADM/REG DATE : 02/02/17 MR#: [id number] REPORT SERV DATE: 02/07/17 DICTATED BY: MARIO BURGESS DATE: 02/07/17 REPORT STATUS : Draft TRANSCRIBED BY: MODGurinder DATE: 02/07/17 CONSULT. DATE OF CONSULTATION: 02/07/2017 HISTORY OF PRESENT ILLNESS: This is a 71-year-old patient, who was admitted to the Cardiology Service on 02/02/2017. He had a chief complaint of exertional dyspnea and weakness, and was found to be in atrial fibrillation with rapid ventricular response. The patient apparently underwent cardioversion with anabaptist of normal sinus rhythm, was started on amiodarone 40 mg twice a and then eventually was discharged from [facility]. This occurred about four to five days ago. The patient was discharged home, was home for about two to three days, and then got more fatigued and short of breath. Took additional Lasix, did not get any relief, and then presented to the [facility] ER. The patient was once again in atrial fibrillation and pulmonary vascular congestion. He has a known history of previous anterior myocardial infarction with a baseline ejection fraction of 50%. During the course of his workup here at [facility] he was found to have severe mitral regurgitation as documented on a transesophageal echocardiogram. Estimated ejection fraction was 40%. An apical hypokinesis was noted. The patient also underwent a cardiac catheterization on the , that showed nonocclusive disease of the coronaries. The patient was on telemetry floor, but went into respiratory distress and pulmonary edema, and became hypertensive. He was given Bumex. Hydralazine was tried, and nitroglycerin drip was ordered. The patient was then subsequently transferred to the CCU for further care. Upon arrival to the unit the patient was in extreme respiratory failure, BiPAP was applied immediately. Olivia catheter was placed. Additional Bumex is given and the patient seems to have improved with those measures. ALLERGIES: HE HAS NO KNOWN DRUG ALLERGIES. HOME MEDICATIONS: 1. Elavil. 2. Cordarone. 3. Norvasc. 4. Aspirin. 5. Lipitor. 6. Coreg. 7. Folic acid. 8. Glucotrol. 9. Prinivil. 10.Glucophage. 11.[place]-3 fatty acids. 12.Viagra. 13.Flomax. PAST MEDICAL HISTORY: Significant for: Consultation Report [address] [place]. [address] NAME: SARAN HAWKINS : 49 STATUS : ADM Sandra PAT#: [id number] AGE: 71 ADM/REG DATE : 02/02/17 MR#: [id number] REPORT SERV DATE: 02/07/17 DICTATED BY: MARIO BURGESS DATE: 02/07/17 REPORT STATUS : Draft TRANSCRIBED BY: JUAN C DATE: 02/07/17 1. Type 2 diabetes mellitus. 2. Obstructive sleep apnea. 3. Known coronary artery disease, status post anterior myocardial infarction. 4. Paroxysmal atrial fibrillation recurrent. 5. Hypertension. 6. Remote history of stroke with minimal residual effect. 7. Dyslipidemia. 8. Depression. 9. Erectile dysfunction. 10.CKD. FAMILY HISTORY: Not significant for any coronary artery disease. PAST SURGICAL HISTORY: The patient had a PCI in 2013. SOCIAL HISTORY: There is no history of alcohol abuse or illicit drug use. There is no history of heavy smoking. REVIEW OF SYSTEMS: At this time biggest complaint is one of shortness of breath. The patient denies any chest pain, hemoptysis, diarrhea, fevers, chills, nausea, or vomiting. The remainder of a 10- point review of systems is unremarkable. PHYSICAL EXAMINATION: VITAL SIGNS: Upon arrival here, the patient was in respiratory distress on 100%, saturations were in the high 80s, low 90s. Respiratory rate was in the high 30s, systolic blood pressure was over 200, and heart rate was 120 and atrial fibrillation. The patient was using accessary muscles. SKIN: Slightly moist. HEENT: Head was atraumatic and normocephalic. Pupils are equal, round, and reactive to light and accommodation. Extraocular eye movements are intact. Sclerae anicteric. Conjunctivae are pink. Nasal mucosa is within normal limits. Oral mucosa is moist. Tongue is midline. NECK: Supple without JVD, lymphadenopathy, or thyromegaly. LUNG: Bilateral crackles, diminished breath sounds, and inspiratory wheezing. CARDIAC: An irregularly irregular heart rhythm. No significant murmurs are heard. ABDOMEN: Obese, nondistended, and nontender. Bowel sounds are present, but diminished. RECTAL: Deferred. GENITAL: Deferred. EXTREMITIES: Without cyanosis, clubbing, or edema. Pulses are palpable, symmetrical. NEUROLOGIC: Cranial nerves 2 through 12 are grossly intact. Motor and sensory are intact. LABORATORY DATA: Chest x-ray shows bilateral pulmonary vascular congestion, right greater than left, that is worsened compared to an x-ray done earlier on the . Consultation Report [address] [place]. [address] NAME: SARAN HAWKINS : 49 STATUS : ADM Sandra PAT#: [id number] AGE: 71 ADM/REG DATE : 02/02/17 MR#: [id number] REPORT SERV DATE: 02/07/17 DICTATED BY: MARIO BURGESS DATE: 02/07/17 REPORT STATUS : Draft TRANSCRIBED BY: JUAN C DATE: 02/07/17 His most recent electrolytes show a sodium of 138, potassium of 4.0, chloride of 106, bicarb of 23, BUN of 35, creatinine of 2.05, and glucose of 170. White cell count is 6.9, hemoglobin 11, hematocrit of 32, and platelet count is a 181,000. ProTime is 17.8. INR is 1.5. EKG shows right bundle branch block and atrial fibrillation. ASSESSMENT AND PLAN: This is a 71-year-old patient with severe mitral regurgitation, known coronary artery disease, diabetes mellitus, and atrial fibrillation, who presents with respiratory failure acute while on the floor and requires transport to the CCU for further care and treatment. The plan will be to apply BiPAP, place Olivia, diurese the patient further, and hopefully the patient will not need to be intubated. We will need to keep close track of the I's and O's on this patient. He already has known CKD and has had a creatinine of greater than 2 since admission. We will consult Nephrology to see the patient in the morning. It is concerning that he is diabetic and he has received a dye load today and has been on Glucophage as an outpatient and has CKD, so this will have to be closely monitored particularly if the patient will more than likely need a mitral valve replacement. Regarding his diabetes mellitus we will just keep the patient n.p.o. and put him on a sliding insulin scale. Hypertension will be controlled with the nitroglycerin drip and if that is ineffective, can start Cardene, but I suspect that his hypertension is more than likely secondary to his respiratory distress and will resolve itself once he is diuresed and the stressor is removed. Atrial fibrillation, continue amiodarone and further management of the atrial fibrillation will be as per Cardiology. Total critical care time spent with this patient commenced at 1:15 a.m. and ended at 2:00 a.m. for a total of 45 minutes of critical care time. The patient is in critical condition and needs close monitoring and assessment of respiratory status, renal status, neurologic status with close attention to volume status, hemodynamic assessment, neurologic monitoring. /MODL Mario Burgess M.D. / [id number] CC: Jenna Mosley M.D.
--- NOTE | ~2017-02-02 | TEE ---
Transesophageal Echocardiogram [facility] [address] [place]. [address] NAME: SARAN HAWKINS : 49 STATUS : ADM Sandra PAT#: [id number] AGE: 71 ADM/REG DATE : 02/02/17 MR#: [id number] REPORT SERV DATE: 02/04/17 DICTATED BY: DATE: REPORT STATUS : Draft TRANSCRIBED BY: MODL DATE: 02/04/17 CHIEF COMPLAINT/REASON FOR STUDY: Assess mitral regurgitation. Written informed consent obtained. Please see chart for documentation. PROCEDURE: With the assistance of my Anesthesia colleagues, Mr. Hawkins was sedated for the procedure. The transesophageal probe was placed with one attempt without complications. 1. The aortic valve is mildly sclerotic, trileaflet opened adequately. There was no significant aortic valve regurgitation via color flow Doppler. 2. The left ventricular systolic function is moderately decreased with a visually estimated ejection fraction of 40%. There is apical hypokinesis noted. No clear evidence of thrombus. The basal septum is hypertrophied consistent with a sigmoid septum without clear evidence of left ventricular outflow tract obstruction. 3. The mitral valve leaflets were thickened. There is mild restriction of the posterior mitral valve leaflets and the T1 and T2 leaflets fail to coap with the anterior mitral valve leaflets. This results in severe mitral valvular regurgitation. The jet is somewhat eccentric but the vena contracta was 0.8 cm, ERO 0.43 cm, mitral regurgitant volume 57 mL. There was systolic flow reversal noted in both the left and right upper pulmonary vein. This is all consistent with severe mitral regurgitation. The tricuspid valve leaflets appear to open normally. There was trivial tricuspid valvular regurgitation noted. 4. The left atrium was dilated. The left atrial appendage was interrogated at multiple levels and depths. There was no evidence of left atrial appendage thrombus. Doppler velocities within the left atrial appendage were 40 cm/second. The right atrium appeared grossly normal in size. 5. The right ventricle appeared grossly normal in size and systolic function. The right atrium appeared mildly dilated. 6. The pulmonary valve appeared to open normal without normally. There was trivial pulmonary valvular regurgitation noted. 7. There was no evidence of pericardial effusion. 8. The thoracic aorta was examined. There was moderate calcific atherosclerotic plaque noted. IMPRESSION: 1. Moderately decreased left ventricular systolic function with a visually estimated ejection fraction of 40%. 2. Apical hypokinesis. 3. Degenerative mitral valve disease with severe mitral regurgitation as detailed above. These findings were communicated to the referring physician. Ivan/JUAN C Jenna Mosley M.D. Transesophageal Echocardiogram [address] [address] NAME: SARAN HAWKINS : 49 STATUS : ADM Sandra PAT#: [id number] AGE: 71 ADM/REG DATE : 02/02/17 MR#: [id number] REPORT SERV DATE: 02/04/17 DICTATED BY: DATE: REPORT STATUS : Draft TRANSCRIBED BY: JUAN C DATE: 02/04/17 / [id number] CC: Simone Pro M.D.
--- NOTE | ~2017-02-02 | CN ---
Consultation Report [facility] [id number] [place]. [address] NAME: GALLO VALENTINE : 49 STATUS : [facility]#: [id number] AGE: 71 ADM/REG DATE : 02/02/17 MR#: [id number] REPORT SERV DATE: 02/16/17 DICTATED BY: ISIDORO PRATT DATE: 02/16/17 REPORT STATUS : Draft TRANSCRIBED BY: MODL DATE: 02/16/17 ELECTROPHYSIOLOGY CONSULTATION DATE OF CONSULTATION: 02/16/2017 INDICATION: Atrial fibrillation, bradycardia, wide QRS. HISTORY OF PRESENT ILLNESS: Gallo Valentine is a 71-year-old man admitted on the . He was found to have severe mitral valve disease. He went on to have mitral valve replacement and surgical maze. Postoperative, the patient developed AV block. Beta blockers and amiodarone were discontinued. Despite this, he has had progressive bradycardia. He was transitioned back to atrial fibrillation with periods of sick sinus syndrome/complete heart block with regularization of the R to R interval and underlying ventricular/possible junctional escape. It has been ongoing for greater than 24 hours at this point. The patient has symptoms of fatigue, effort intolerance, and weakness. PAST MEDICAL HISTORY: Diabetes, chronic kidney disease, obstructive sleep apnea, CAD with previous anterior ME, cardiomyopathy, paroxysmal to persistent atrial fibrillation, hypertension, previous CVA, hyperlipidemia, depression. PRESENT MEDICATIONS: Elavil, aspirin, Lipitor, Ancef, Colace, Pepcid, NovoLog, Bactroban, Promega, Senokot, Flomax, Demadex, Orazinc, and Levemir. ALLERGIES: NONE KNOWN. SOCIAL HISTORY: No present smoking. FAMILY HISTORY: Reviewed and noncontributory. REVIEW OF SYSTEMS: As per the HPI. Otherwise, all other review of systems is negative. PHYSICAL EXAMINATION: VITAL SIGNS: Blood pressure of 115/67, pulse 38, respiratory rate is 18. The patient is afebrile. GENERAL: Appears stated age, no distress. EYES: Sclerae anicteric, no arcus senilis. MOUTH: Oral mucosa moist, lips acyanotic. NECK: Jugular venous pressure normal, no carotid bruits. LUNGS: Clear to auscultation bilaterally, normal inspiratory effort. CARDIAC: Irregular rhythm. Bradycardia. ABDOMEN: Soft, nondistended, nontender. EXTREMITIES: No edema. SKIN: Warm and dry. Consultation Report [facility] [address] [place]. [address] NAME: GALLO VALENTINE : 49 STATUS : ADM IN PAT#: [id number] AGE: 71 ADM/REG DATE : 02/02/17 MR#: [id number] REPORT SERV DATE: 02/16/17 DICTATED BY: ISIDORO PRATT DATE: 02/16/17 REPORT STATUS : Draft TRANSCRIBED BY: MODL DATE: 02/16/17 NEURO/PSYCH: Alert and oriented, nonfocal, mood appropriate. DATA: Creatinine is 2.5. Potassium is 3.4. Hemoglobin 8.8. TSH 2.1. Telemetry strips are as described. ECG: Atrial fibrillation with probable complete AV block, heart rate 42 beats per minute with a right bundle-branch block pattern, QRS duration 176 milliseconds. IMPRESSION: 1. Atrial fibrillation with a combination of sick sinus syndrome and AV block, underlying right bundle-branch block conduction pattern with widened QRS after surgery. 2. Status post mitral valve surgery. 3. Chronic kidney disease. 4. Coronary artery disease. Ejection fraction between 40% and 50%. RECOMMENDATIONS: I reviewed the situation with Mr. Valentine. We will plan for placement of a cardiac resynchronization pacemaker today. I have discussed with him the rationale, logistics, and risks. Risks include but not limited to bleeding, infection, vascular complications, myocardial infarction, stroke, failure to place lead, lead dislodgement, pneumothorax. All questions answered. The patient wishes to proceed. Plan for a left ventricular lead as anticipated to frequent ventricular pacing. Afterwards, resume Coreg and amiodarone and consider cardioversion in the future. Begin warfarin after procedure. CHASE/JUAN C Isidoro Pratt M.D. / [id number] CC: Simone Pro M.D.
[2017-02-02 04:34] LABS: BASOPHILS 0.6 %; BASOPHILS ABSOLUTE 0.05 10/3/uL (0.0-0.16); EOSINOPHILS 3.3 %; EOSINOPHILS ABSOLUTE 0.29 10/3/uL (0.0-0.53); IMMATURE GRANULOCYTES 0.5 %; IMMATURE GRANULOCYTES ABSOLUTE 0.04 10/3/uL (0.0-0.11); LYMPHOCYTES 19.7 %; LYMPHOCYTES ABSOLUTE 1.72 10/3/uL (0.67-4.30); MEAN CORPUS HGB CONC 33.2 g/dL (32.0-36.0); MEAN CORPUSCULAR HEMOGLOB 28.4 pg (26.0-34.0); MEAN PLATELET VOLUME 10.4 fL (9.2-13.0); MONOCYTES 7.9 %; MONOCYTES ABSOLUTE 0.69 10/3/uL (0.21-1.20); NEUTROPHILS ABSOLUTE 5.95 10/3/uL (2.02-8.40); PLATELET COUNT 194 10/3/uL (150-400); RBC DISTRIBUTION WIDTH 14.9 % (12.0-16.0); WHITE BLOOD CELLS 8.7 10/3/uL (4.5-10.5)
[2017-02-02 04:35] LABS: ER CBC TAT 0 Hrs 07 MinsNP; HEMATOCRIT 33.1 % (40.0-51.0); MANUAL DIFF NO %; MEAN CORPUSCULAR VOLUME 85.3 fL (80-100); RED CELL COUNT 3.88 10/6/uL (4.7-6.1)
[2017-02-02 04:41] LABS: INTERNATIONAL NORMAL RATI 2.5 UNITS (-); PARTIAL THROMBO TIME 42.3 SEC (22.5-37.2); PROTIME (NOT ORD) 26.6 SEC (12.0-14.5)
[2017-02-02 04:50] LABS: BUN (BLOOD UREA NITROGEN) 29 MG/DL (6-23); CHEST PAIN PROFILE TAT 0 Hrs 23 Mins; CHLORIDE, SERUM 108 MMOL/L (96-112); CO2 (CARBON DIOXIDE) 19 MMOL/L (24-34); CREATININE 2.53 MG/DL (0.70-1.30); GFR AFRICAN AMERICAN 29 ML/MIN (>=60); GFR NON AFRICAN AMERICAN 25 ML/MIN (>=60); GLUCOSE, SERUM 129 MG/DL (60-99); POTASSIUM, SERUM 3.9 MMOL/L (3.5-5.3); SODIUM, SERUM 141 MMOL/L (135-148); TROPONIN I 0.03 NG/ML (<0.05)
[~2017-02-02 05:06] MED LIST: AMIT10 PO; FISH-EPA1000 MG PO; FLOMAX4 PO; FOLIC PO; GLUCOPHAGE1000 MG PO; GLUCOTRO10 PO; LIPITOR20 PO; LISINOPRIL40 MG PO; NORV10 PO; TOPXL50 PO
[2017-02-02] MEDS ORDERED: NORV10 PO (05:59)
[2017-02-02] MEDS ORDERED: AMIT10 PO (05:59)
[2017-02-02] MEDS ORDERED: LIPITOR20 PO (06:00)
[2017-02-02] MEDS ORDERED: FOLIC PO (06:00)
[2017-02-02] MEDS ORDERED: COREG6 PO (06:00)
[2017-02-02] MEDS ORDERED: GLUCOTRO10 PO ×2 (06:02→06:03)
[2017-02-02] MEDS ORDERED: LISINOPRIL40 MG PO (06:03)
[2017-02-02] MEDS ORDERED: GLUCPH PO (06:05)
[2017-02-02] MEDS ORDERED: FISH-EPA1000 MG PO ×2 (06:06→06:07)
[2017-02-02] MEDS ORDERED: FLOMAX4 PO (06:07)
[2017-02-02] MEDS ORDERED: CORDARONE PO (06:07)
[2017-02-02] MEDS ORDERED: VIAGRA50 MG PO (06:08)
[2017-02-02] MEDS ORDERED: ASAB PO (06:08)
[2017-02-02 07:25] LABS: HCO3 (ACTUAL BICARBONATE) 17.8 MEQ/L (23-27); INSTRUMENT SERIAL # 8087; METHEMOGLOBIN 0.3 % (0-3); O2 CONTENT 14.5 VOL% (18-24); PCO2 (CO2 TENSION) 30 MMHG (35-45); PO2 (O2 TENSION) 78 MMHG (79-93); SAMPLE Arterial
[2017-02-02 15:27] LABS: FREE T4 0.99 NG/DL (0.76-1.46); ULTRASENSITIVE TSH 2.16 MCIU/ML (0.358-3.740)
[2017-02-03 06:35] LABS: BASOPHILS 0.4 %; BASOPHILS ABSOLUTE 0.03 10/3/uL (0.0-0.16); EOSINOPHILS 2.4 %; EOSINOPHILS ABSOLUTE 0.18 10/3/uL (0.0-0.53); HEMATOCRIT 31.5 % (40.0-51.0); HEMOGLOBIN 10.6 g/dL (13.6-17.8); IMMATURE GRANULOCYTES 0.4 %; IMMATURE GRANULOCYTES ABSOLUTE 0.03 10/3/uL (0.0-0.11); LYMPHOCYTES 18.8 %; LYMPHOCYTES ABSOLUTE 1.38 10/3/uL (0.67-4.30); MEAN CORPUS HGB CONC 33.7 g/dL (32.0-36.0); MEAN CORPUSCULAR HEMOGLOB 28.5 pg (26.0-34.0); MEAN CORPUSCULAR VOLUME 84.7 fL (80-100); MEAN PLATELET VOLUME 10.3 fL (9.2-13.0); MONOCYTES 10.3 %; MONOCYTES ABSOLUTE 0.76 10/3/uL (0.21-1.20); NEUTROPHILS 67.7 %; NEUTROPHILS ABSOLUTE 4.97 10/3/uL (2.02-8.40); PLATELET COUNT 180 10/3/uL (150-400); RBC DISTRIBUTION WIDTH 14.7 % (12.0-16.0); RED CELL COUNT 3.72 10/6/uL (4.7-6.1); WHITE BLOOD CELLS 7.4 10/3/uL (4.5-10.5)
[2017-02-03 06:36] LABS: MANUAL DIFF NO %
[2017-02-03 06:41] LABS: INTERNATIONAL NORMAL RATI 2.8 UNITS (-); PROTIME (NOT ORD) 29.4 SEC (12.0-14.5)
[2017-02-03 06:46] LABS: BUN (BLOOD UREA NITROGEN) 31 MG/DL (6-23); CALCIUM, SERUM 7.7 MG/DL (8.5-10.4); CHLORIDE, SERUM 108 MMOL/L (96-112); CO2 (CARBON DIOXIDE) 21 MMOL/L (24-34); CREATININE 2.07 MG/DL (0.70-1.30); GFR AFRICAN AMERICAN 37 ML/MIN (>=60); GFR NON AFRICAN AMERICAN 32 ML/MIN (>=60); GLUCOSE, SERUM 150 MG/DL (60-99); POTASSIUM, SERUM 3.8 MMOL/L (3.5-5.3); SODIUM, SERUM 140 MMOL/L (135-148)
[2017-02-03 07:07] LABS: D-DIMER QUANTITATIVE 0.28 ug/mLFEU (< 0.50)
[2017-02-04 04:31] LABS: BASOPHILS 0.4 %; BASOPHILS ABSOLUTE 0.03 10/3/uL (0.0-0.16); EOSINOPHILS 3.3 %; EOSINOPHILS ABSOLUTE 0.27 10/3/uL (0.0-0.53); HEMATOCRIT 32.5 % (40.0-51.0); HEMOGLOBIN 10.9 g/dL (13.6-17.8); IMMATURE GRANULOCYTES 0.4 %; IMMATURE GRANULOCYTES ABSOLUTE 0.03 10/3/uL (0.0-0.11); LYMPHOCYTES 22.7 %; LYMPHOCYTES ABSOLUTE 1.86 10/3/uL (0.67-4.30); MEAN CORPUS HGB CONC 33.5 g/dL (32.0-36.0); MEAN CORPUSCULAR HEMOGLOB 28.5 pg (26.0-34.0); MEAN CORPUSCULAR VOLUME 84.9 fL (80-100); MEAN PLATELET VOLUME 10.1 fL (9.2-13.0); MONOCYTES 9.5 %; MONOCYTES ABSOLUTE 0.78 10/3/uL (0.21-1.20); NEUTROPHILS 63.7 %; NEUTROPHILS ABSOLUTE 5.24 10/3/uL (2.02-8.40); PLATELET COUNT 179 10/3/uL (150-400); RBC DISTRIBUTION WIDTH 14.9 % (12.0-16.0); RED CELL COUNT 3.83 10/6/uL (4.7-6.1); WHITE BLOOD CELLS 8.2 10/3/uL (4.5-10.5)
[2017-02-04 04:42] LABS: INTERNATIONAL NORMAL RATI 2.9 UNITS (-); PROTIME (NOT ORD) 29.8 SEC (12.0-14.5)
[2017-02-04 04:44] LABS: BUN (BLOOD UREA NITROGEN) 32 MG/DL (6-23); CALCIUM, SERUM 7.8 MG/DL (8.5-10.4); CHLORIDE, SERUM 110 MMOL/L (96-112); CO2 (CARBON DIOXIDE) 22 MMOL/L (24-34); CREATININE 2.01 MG/DL (0.70-1.30); GFR AFRICAN AMERICAN 38 ML/MIN (>=60); GFR NON AFRICAN AMERICAN 33 ML/MIN (>=60); GLUCOSE, SERUM 146 MG/DL (60-99); POTASSIUM, SERUM 3.8 MMOL/L (3.5-5.3); SODIUM, SERUM 141 MMOL/L (135-148)
[2017-02-04 04:49] LABS: MANUAL DIFF NO %
[2017-02-05 06:07] LABS: BASOPHILS 0.6 %; BASOPHILS ABSOLUTE 0.04 10/3/uL (0.0-0.16); EOSINOPHILS 3.5 %; EOSINOPHILS ABSOLUTE 0.22 10/3/uL (0.0-0.53); HEMATOCRIT 34.2 % (40.0-51.0); HEMOGLOBIN 11.5 g/dL (13.6-17.8); IMMATURE GRANULOCYTES 0.5 %; IMMATURE GRANULOCYTES ABSOLUTE 0.03 10/3/uL (0.0-0.11); LYMPHOCYTES 30.1 %; LYMPHOCYTES ABSOLUTE 1.87 10/3/uL (0.67-4.30); MEAN CORPUS HGB CONC 33.6 g/dL (32.0-36.0); MEAN CORPUSCULAR HEMOGLOB 28.7 pg (26.0-34.0); MEAN CORPUSCULAR VOLUME 85.3 fL (80-100); MEAN PLATELET VOLUME 10.4 fL (9.2-13.0); MONOCYTES ABSOLUTE 0.62 10/3/uL (0.21-1.20); NEUTROPHILS 55.3 %; NEUTROPHILS ABSOLUTE 3.44 10/3/uL (2.02-8.40); PLATELET COUNT 183 10/3/uL (150-400); RBC DISTRIBUTION WIDTH 14.6 % (12.0-16.0); RED CELL COUNT 4.01 10/6/uL (4.7-6.1); WHITE BLOOD CELLS 6.2 10/3/uL (4.5-10.5)
[2017-02-05 06:14] LABS: INTERNATIONAL NORMAL RATI 2.6 UNITS (-); MANUAL DIFF NO %; PROTIME (NOT ORD) 27.8 SEC (12.0-14.5)
[2017-02-05 06:21] LABS: BUN (BLOOD UREA NITROGEN) 33 MG/DL (6-23); CHLORIDE, SERUM 108 MMOL/L (96-112); CO2 (CARBON DIOXIDE) 25 MMOL/L (24-34); GFR AFRICAN AMERICAN 38 ML/MIN (>=60); GFR NON AFRICAN AMERICAN 33 ML/MIN (>=60); GLUCOSE, SERUM 139 MG/DL (60-99); POTASSIUM, SERUM 3.7 MMOL/L (3.5-5.3); SODIUM, SERUM 144 MMOL/L (135-148)
[2017-02-05 18:26] LABS: INTERNATIONAL NORMAL RATI 1.8 UNITS (-); PROTIME (NOT ORD) 20.7 SEC (12.0-14.5)
[2017-02-06 04:55] LABS: INTERNATIONAL NORMAL RATI 1.5 UNITS (-); PROTIME (NOT ORD) 17.8 SEC (12.0-14.5)
[2017-02-06 04:57] LABS: BASOPHILS 0.9 %; BASOPHILS ABSOLUTE 0.06 10/3/uL (0.0-0.16); EOSINOPHILS 3.8 %; EOSINOPHILS ABSOLUTE 0.26 10/3/uL (0.0-0.53); HEMATOCRIT 32.9 % (40.0-51.0); IMMATURE GRANULOCYTES 0.4 %; IMMATURE GRANULOCYTES ABSOLUTE 0.03 10/3/uL (0.0-0.11); LYMPHOCYTES 25.1 %; LYMPHOCYTES ABSOLUTE 1.74 10/3/uL (0.67-4.30); MEAN CORPUS HGB CONC 33.4 g/dL (32.0-36.0); MEAN CORPUSCULAR HEMOGLOB 28.5 pg (26.0-34.0); MEAN CORPUSCULAR VOLUME 85.2 fL (80-100); MEAN PLATELET VOLUME 10.5 fL (9.2-13.0); MONOCYTES 9.2 %; MONOCYTES ABSOLUTE 0.64 10/3/uL (0.21-1.20); NEUTROPHILS 60.6 %; NEUTROPHILS ABSOLUTE 4.19 10/3/uL (2.02-8.40); PLATELET COUNT 181 10/3/uL (150-400); RBC DISTRIBUTION WIDTH 14.9 % (12.0-16.0); RED CELL COUNT 3.86 10/6/uL (4.7-6.1); WHITE BLOOD CELLS 6.9 10/3/uL (4.5-10.5)
[2017-02-06 04:59] LABS: MANUAL DIFF NO %
[2017-02-06 05:09] LABS: BUN (BLOOD UREA NITROGEN) 35 MG/DL (6-23); CALCIUM, SERUM 8.1 MG/DL (8.5-10.4); CHLORIDE, SERUM 106 MMOL/L (96-112); CO2 (CARBON DIOXIDE) 23 MMOL/L (24-34); CREATININE 2.05 MG/DL (0.70-1.30); GFR AFRICAN AMERICAN 37 ML/MIN (>=60); GFR NON AFRICAN AMERICAN 32 ML/MIN (>=60); SODIUM, SERUM 138 MMOL/L (135-148)
[2017-02-06 05:27] LABS: GLUCOSE, SERUM 170 MG/DL (60-99)
[2017-02-06 10:23] LABS: CHOL/HDL RATIO(NOT ORDER) 3.3 (0-5); CHOLESTEROL 97 MG/DL (< 200); HDL CHOLESTEROL 29 MG/DL (> 39); LDL CHOLESTEROL 41 MG/DL (< 130); NON-HDL CHOLESTEROL 68 MG/DL (< 160)
[2017-02-06 10:26] LABS: TRIGLYCERIDE 137 MG/DL (< 150)
[2017-02-07 03:46] LABS: BE (BASE EXCESS) -5.6 MEQ/L (0 +/- 2.5); BIPAP 16/8 cm.H2O; CARBOXYHEMOGLOBIN 0.3 % (0-3); HCO3 (ACTUAL BICARBONATE) 18.4 MEQ/L (23-27); HEMOBLOGIN CONTENT 11.4 G/DL (14-18); INSTRUMENT SERIAL # 35151; METHEMOGLOBIN 0.3 % (0-3); OPERATOR ID 33214; PCO2 (CO2 TENSION) 31 MMHG (35-45); PO2 (O2 TENSION) 175 MMHG (79-93); SAMPLE Arterial; pH 7.39 (7.37-7.43)
[2017-02-07 06:32] LABS: CALCIUM, SERUM 7.8 MG/DL (8.5-10.4); CHLORIDE, SERUM 106 MMOL/L (96-112); CO2 (CARBON DIOXIDE) 24 MMOL/L (24-34); CREATININE 2.07 MG/DL (0.70-1.30); GFR AFRICAN AMERICAN 37 ML/MIN (>=60); GFR NON AFRICAN AMERICAN 32 ML/MIN (>=60); PHOSPHORUS, SERUM 2.9 MG/DL (2.5-4.5); POTASSIUM, SERUM 4.7 MMOL/L (3.5-5.3); SODIUM, SERUM 140 MMOL/L (135-148)
[2017-02-07 06:36] LABS: BUN (BLOOD UREA NITROGEN) 40 MG/DL (6-23); GLUCOSE, SERUM 315 MG/DL (60-99)
[2017-02-07 19:23] LABS: ASCORBIC ACID (UR NOT ORDER) NEG (NEG); BILIRUBIN, URINE NEGATIVE (NEG); KETONE, URINE NEGATIVE (NEG); LEUKOCYTE ESTERASE(NOT OR TRACE (NEG); WBC (NOT ORDERED) (RFLEX) 2 (0-5)
[2017-02-07 20:18] LABS: CREATININE, URINE 52.9 MG/DL
[2017-02-08 05:26] LABS: BASOPHILS 0.4 %; BASOPHILS ABSOLUTE 0.03 10/3/uL (0.0-0.16); EOSINOPHILS 2.4 %; EOSINOPHILS ABSOLUTE 0.18 10/3/uL (0.0-0.53); HEMATOCRIT 30.4 % (40.0-51.0); IMMATURE GRANULOCYTES 0.4 %; IMMATURE GRANULOCYTES ABSOLUTE 0.03 10/3/uL (0.0-0.11); LYMPHOCYTES 21.4 %; MANUAL DIFF NO %; MEAN CORPUS HGB CONC 32.9 g/dL (32.0-36.0); MEAN CORPUSCULAR HEMOGLOB 28.1 pg (26.0-34.0); MEAN CORPUSCULAR VOLUME 85.4 fL (80-100); MEAN PLATELET VOLUME 10.6 fL (9.2-13.0); MONOCYTES ABSOLUTE 0.75 10/3/uL (0.21-1.20); NEUTROPHILS 65.4 %; NEUTROPHILS ABSOLUTE 4.88 10/3/uL (2.02-8.40); PLATELET COUNT 211 10/3/uL (150-400); RBC DISTRIBUTION WIDTH 14.7 % (12.0-16.0); RED CELL COUNT 3.56 10/6/uL (4.7-6.1); WHITE BLOOD CELLS 7.5 10/3/uL (4.5-10.5)
[2017-02-08 05:35] LABS: ALBUMIN 3.1 G/DL (3.5-5.0); BUN (BLOOD UREA NITROGEN) 38 MG/DL (6-23); CALCIUM, SERUM 7.8 MG/DL (8.5-10.4); CHLORIDE, SERUM 104 MMOL/L (96-112); CO2 (CARBON DIOXIDE) 27 MMOL/L (24-34); CREATININE 2.11 MG/DL (0.70-1.30); GFR AFRICAN AMERICAN 36 ML/MIN (>=60); GFR NON AFRICAN AMERICAN 31 ML/MIN (>=60); PHOSPHORUS, SERUM 3.3 MG/DL (2.5-4.5); SODIUM, SERUM 140 MMOL/L (135-148)
[2017-02-08 05:37] LABS: GLUCOSE, SERUM 205 MG/DL (60-99); POTASSIUM, SERUM 3.7 MMOL/L (3.5-5.3)
[2017-02-09 04:54] LABS: BUN (BLOOD UREA NITROGEN) 39 MG/DL (6-23); CALCIUM, SERUM 8.3 MG/DL (8.5-10.4); CHLORIDE, SERUM 102 MMOL/L (96-112); CO2 (CARBON DIOXIDE) 25 MMOL/L (24-34); CREATININE 2.24 MG/DL (0.70-1.30); GFR AFRICAN AMERICAN 33 ML/MIN (>=60); GFR NON AFRICAN AMERICAN 29 ML/MIN (>=60); GLUCOSE, SERUM 207 MG/DL (60-99); POTASSIUM, SERUM 3.7 MMOL/L (3.5-5.3); SODIUM, SERUM 137 MMOL/L (135-148)
[2017-02-10 05:03] LABS: BASOPHILS 0.7 %; BASOPHILS ABSOLUTE 0.05 10/3/uL (0.0-0.16); EOSINOPHILS 2.9 %; EOSINOPHILS ABSOLUTE 0.21 10/3/uL (0.0-0.53); HEMATOCRIT 34.5 % (40.0-51.0); HEMOGLOBIN 11.6 g/dL (13.6-17.8); IMMATURE GRANULOCYTES 0.3 %; IMMATURE GRANULOCYTES ABSOLUTE 0.02 10/3/uL (0.0-0.11); LYMPHOCYTES 18.5 %; LYMPHOCYTES ABSOLUTE 1.35 10/3/uL (0.67-4.30); MANUAL DIFF NO %; MEAN CORPUS HGB CONC 33.6 g/dL (32.0-36.0); MEAN CORPUSCULAR HEMOGLOB 28.6 pg (26.0-34.0); MEAN PLATELET VOLUME 10.1 fL (9.2-13.0); MONOCYTES 11.1 %; MONOCYTES ABSOLUTE 0.81 10/3/uL (0.21-1.20); NEUTROPHILS 66.5 %; NEUTROPHILS ABSOLUTE 4.87 10/3/uL (2.02-8.40); PLATELET COUNT 190 10/3/uL (150-400); RBC DISTRIBUTION WIDTH 14.5 % (12.0-16.0); RED CELL COUNT 4.06 10/6/uL (4.7-6.1); WHITE BLOOD CELLS 7.3 10/3/uL (4.5-10.5)
[2017-02-10 05:31] LABS: ALBUMIN 3.2 G/DL (3.5-5.0); CALCIUM, SERUM 8.5 MG/DL (8.5-10.4); CHLORIDE, SERUM 102 MMOL/L (96-112); CREATININE 2.09 MG/DL (0.70-1.30); GFR AFRICAN AMERICAN 36 ML/MIN (>=60); GFR NON AFRICAN AMERICAN 31 ML/MIN (>=60); PHOSPHORUS, SERUM 3.6 MG/DL (2.5-4.5); POTASSIUM, SERUM 4.4 MMOL/L (3.5-5.3); SODIUM, SERUM 134 MMOL/L (135-148)
[2017-02-10 05:32] LABS: BUN (BLOOD UREA NITROGEN) 47 MG/DL (6-23); CO2 (CARBON DIOXIDE) 18 MMOL/L (24-34); GLUCOSE, SERUM 262 MG/DL (60-99)
[2017-02-11 09:38] LABS: BASOPHILS 0.7 %; BASOPHILS ABSOLUTE 0.05 10/3/uL (0.0-0.16); EOSINOPHILS 3.2 %; EOSINOPHILS ABSOLUTE 0.22 10/3/uL (0.0-0.53); HEMATOCRIT 33.7 % (40.0-51.0); HEMOGLOBIN 11.2 g/dL (13.6-17.8); IMMATURE GRANULOCYTES 0.1 %; IMMATURE GRANULOCYTES ABSOLUTE 0.01 10/3/uL (0.0-0.11); LYMPHOCYTES 19.3 %; LYMPHOCYTES ABSOLUTE 1.33 10/3/uL (0.67-4.30); MEAN CORPUS HGB CONC 33.2 g/dL (32.0-36.0); MEAN CORPUSCULAR HEMOGLOB 28.2 pg (26.0-34.0); MEAN CORPUSCULAR VOLUME 84.9 fL (80-100); MEAN PLATELET VOLUME 10.2 fL (9.2-13.0); MONOCYTES 13.5 %; MONOCYTES ABSOLUTE 0.93 10/3/uL (0.21-1.20); NEUTROPHILS 63.2 %; NEUTROPHILS ABSOLUTE 4.34 10/3/uL (2.02-8.40); PLATELET COUNT 213 10/3/uL (150-400); RBC DISTRIBUTION WIDTH 14.5 % (12.0-16.0); RED CELL COUNT 3.97 10/6/uL (4.7-6.1); WHITE BLOOD CELLS 6.9 10/3/uL (4.5-10.5)
[2017-02-11 09:40] LABS: MANUAL DIFF NO %
[2017-02-11 09:52] LABS: A/G RATIO 0.9 (0.7-1.9); ALBUMIN 3.3 G/DL (3.5-5.0); ALKALINE PHOSPHATASE 64 U/L (45-117); BUN (BLOOD UREA NITROGEN) 44 MG/DL (6-23); CALCIUM, SERUM 8.7 MG/DL (8.5-10.4); CHLORIDE, SERUM 103 MMOL/L (96-112); CO2 (CARBON DIOXIDE) 26 MMOL/L (24-34); CREATININE 2.27 MG/DL (0.70-1.30); DIRECT BILIRUBIN 0.2 MG/DL (0.0-0.4); GFR AFRICAN AMERICAN 33 ML/MIN (>=60); GFR NON AFRICAN AMERICAN 28 ML/MIN (>=60); GLOBULIN 3.6 G/DL (2.5-4.1); GLUCOSE, SERUM 242 MG/DL (60-99); PHOSPHORUS, SERUM 3.3 MG/DL (2.5-4.5); POTASSIUM, SERUM 4.6 MMOL/L (3.5-5.3); SGOT(AST) 12 U/L (5-40); SGPT(ALT) 24 U/L (5-65); SODIUM, SERUM 137 MMOL/L (135-148); TOTAL BILIRUBIN 1.2 MG/DL (0-1.2); TOTAL PROTEIN 6.9 G/DL (6.0-8.5)
[2017-02-11 09:53] LABS: INTERNATIONAL NORMAL RATI 1.3 UNITS (-); PROTIME (NOT ORD) 15.9 SEC (12.0-14.5)
[2017-02-11 19:04] LABS: INSTRUMENT SERIAL # 11843; PCO2 (CO2 TENSION) 47 MMHG (35-45)
[2017-02-11 19:05] LABS: BE (BASE EXCESS) -3.7 MEQ/L (0 +/- 2.5); CARBOXYHEMOGLOBIN 0.6 % (0-3); HCO3 (ACTUAL BICARBONATE) 22.6 MEQ/L (23-27); HEMOBLOGIN CONTENT 8.7 G/DL (14-18); METHEMOGLOBIN 0.6 % (0-3); MODE SIMV; O2 CONTENT 12.5 VOL% (18-24); OPERATOR ID 31061; PO2 (O2 TENSION) 227 MMHG (79-93); PRESSURE SUPPORT 0 cm.H2O; SAMPLE Arterial; TIDAL VOLUME 800 ML
[2017-02-11 20:14] LABS: MEAN CORPUS HGB CONC 32.9 g/dL (32.0-36.0); MEAN CORPUSCULAR HEMOGLOB 28.3 pg (26.0-34.0); MEAN PLATELET VOLUME 10.2 fL (9.2-13.0); PLATELET COUNT 205 10/3/uL (150-400); RBC DISTRIBUTION WIDTH 14.8 % (12.0-16.0)
[2017-02-11 20:15] LABS: HEMATOCRIT 24.6 % (40.0-51.0); HEMOGLOBIN 8.1 g/dL (13.6-17.8); MANUAL DIFF YES %; RED CELL COUNT 2.86 10/6/uL (4.7-6.1); WHITE BLOOD CELLS 10.8 10/3/uL (4.5-10.5)
[2017-02-11 20:28] LABS: FIBRINOGEN 288 MG/DL (230-462); PARTIAL THROMBO TIME 38.3 SEC (22.5-37.2)
[2017-02-11 20:31] LABS: BUN (BLOOD UREA NITROGEN) 42 MG/DL (6-23); CHLORIDE, SERUM 106 MMOL/L (96-112); CO2 (CARBON DIOXIDE) 25 MMOL/L (24-34); CREATININE 2.34 MG/DL (0.70-1.30); GFR AFRICAN AMERICAN 32 ML/MIN (>=60); GFR NON AFRICAN AMERICAN 27 ML/MIN (>=60); POTASSIUM, SERUM 4.3 MMOL/L (3.5-5.3); SODIUM, SERUM 139 MMOL/L (135-148)
[2017-02-11 20:32] LABS: CALCIUM, SERUM 7.6 MG/DL (8.5-10.4); GLUCOSE, SERUM 126 MG/DL (60-99)
[2017-02-11 20:58] LABS: BAND NEUTROPHILS 12 %; LYMPHOCYTES 3 %; LYMPHOCYTES ABSOLUTE (CALC) 0.32 10/3/uL (0.67-4.30); NEUTROPHILS ABSOLUTE (CALC) 10.48 10/3/uL (2.02-8.40); SEGMENTED NEUTROPHIL (0) 85 %; TOTAL NUCLEATED CELLS 100
[2017-02-11 20:59] LABS: PLATELET ESTIMATE ADQ (ADEQUATE); RBC MORPHOLOGY NORM (NORMAL)
[2017-02-11 23:25] LABS: BE (BASE EXCESS) -2.5 MEQ/L (0 +/- 2.5); CARBOXYHEMOGLOBIN 0.7 % (0-3); DEVICE NC; HCO3 (ACTUAL BICARBONATE) 21.5 MEQ/L (23-27); INSTRUMENT SERIAL # 11843; METHEMOGLOBIN 0.3 % (0-3); OPERATOR ID 31061; PCO2 (CO2 TENSION) 34 MMHG (35-45); PO2 (O2 TENSION) 82 MMHG (79-93); SAMPLE Arterial; pH 7.42 (7.37-7.43)
[2017-02-12 01:38] LABS: HEMATOCRIT 24.1 % (40.0-51.0); HEMOGLOBIN 8.1 g/dL (13.6-17.8)
[2017-02-12 01:51] LABS: POTASSIUM, SERUM 4.1 MMOL/L (3.5-5.3)
[2017-02-12 04:25] LABS: HEMATOCRIT 23.5 % (40.0-51.0); HEMOGLOBIN 7.8 g/dL (13.6-17.8); MEAN CORPUS HGB CONC 33.2 g/dL (32.0-36.0); MEAN CORPUSCULAR HEMOGLOB 28.4 pg (26.0-34.0); MEAN CORPUSCULAR VOLUME 85.5 fL (80-100); PLATELET COUNT 179 10/3/uL (150-400); RED CELL COUNT 2.75 10/6/uL (4.7-6.1); WHITE BLOOD CELLS 9.9 10/3/uL (4.5-10.5)
[2017-02-12 04:31] LABS: MANUAL DIFF YES %
[2017-02-12 04:33] LABS: INTERNATIONAL NORMAL RATI 1.4 UNITS (-); PROTIME (NOT ORD) 17.2 SEC (12.0-14.5)
[2017-02-12 04:34] LABS: PARTIAL THROMBO TIME 31.5 SEC (22.5-37.2)
[2017-02-12 04:39] LABS: BUN (BLOOD UREA NITROGEN) 41 MG/DL (6-23); CALCIUM, SERUM 8.2 MG/DL (8.5-10.4); CHLORIDE, SERUM 109 MMOL/L (96-112); CO2 (CARBON DIOXIDE) 24 MMOL/L (24-34); CREATININE 2.47 MG/DL (0.70-1.30); GFR AFRICAN AMERICAN 30 ML/MIN (>=60); GFR NON AFRICAN AMERICAN 26 ML/MIN (>=60); POTASSIUM, SERUM 4.1 MMOL/L (3.5-5.3); SODIUM, SERUM 143 MMOL/L (135-148)
[2017-02-12 04:40] LABS: GLUCOSE, SERUM 78 MG/DL (60-99)
[2017-02-12 06:04] LABS: BAND NEUTROPHILS 5 %; LYMPHOCYTES 6 %; LYMPHOCYTES ABSOLUTE (CALC) 0.59 10/3/uL (0.67-4.30); MONOCYTES 2 %; NEUTROPHILS ABSOLUTE (CALC) 9.11 10/3/uL (2.02-8.40); PLATELET ESTIMATE ADQ (ADEQUATE); RBC MORPHOLOGY NORM (NORMAL); SEGMENTED NEUTROPHIL (0) 87 %; TOTAL NUCLEATED CELLS 100
[2017-02-12 15:42] LABS: HEMATOCRIT 24.7 % (40.0-51.0); HEMOGLOBIN 8.4 g/dL (13.6-17.8)
[2017-02-12 15:48] LABS: POTASSIUM, SERUM 4.7 MMOL/L (3.5-5.3)
[2017-02-13 04:11] LABS: CALCIUM, SERUM 7.9 MG/DL (8.5-10.4); CHLORIDE, SERUM 104 MMOL/L (96-112); CO2 (CARBON DIOXIDE) 19 MMOL/L (24-34); CREATININE 2.54 MG/DL (0.70-1.30); GFR AFRICAN AMERICAN 29 ML/MIN (>=60); GFR NON AFRICAN AMERICAN 25 ML/MIN (>=60); GLUCOSE, SERUM 92 MG/DL (60-99); POTASSIUM, SERUM 4.7 MMOL/L (3.5-5.3); SODIUM, SERUM 138 MMOL/L (135-148)
[2017-02-13 04:12] LABS: BUN (BLOOD UREA NITROGEN) 53 MG/DL (6-23); PHOSPHORUS, SERUM 5.2 MG/DL (2.5-4.5)
[2017-02-13 04:34] LABS: BASOPHILS 0.1 %; BASOPHILS ABSOLUTE 0.01 10/3/uL (0.0-0.16); EOSINOPHILS 0.1 %; EOSINOPHILS ABSOLUTE 0.01 10/3/uL (0.0-0.53); HEMATOCRIT 26.2 % (40.0-51.0); HEMOGLOBIN 8.8 g/dL (13.6-17.8); IMMATURE GRANULOCYTES 0.1 %; IMMATURE GRANULOCYTES ABSOLUTE 0.01 10/3/uL (0.0-0.11); LYMPHOCYTES 12.7 %; MEAN CORPUS HGB CONC 33.6 g/dL (32.0-36.0); MEAN CORPUSCULAR HEMOGLOB 28.5 pg (26.0-34.0); MEAN CORPUSCULAR VOLUME 84.8 fL (80-100); MEAN PLATELET VOLUME 10.5 fL (9.2-13.0); MONOCYTES 16.5 %; MONOCYTES ABSOLUTE 1.17 10/3/uL (0.21-1.20); NEUTROPHILS 70.5 %; PLATELET COUNT 156 10/3/uL (150-400); RED CELL COUNT 3.09 10/6/uL (4.7-6.1); WHITE BLOOD CELLS 7.1 10/3/uL (4.5-10.5)
[2017-02-13 04:43] LABS: MANUAL DIFF NO %
[2017-02-14 04:49] LABS: HEMATOCRIT 27.8 % (40.0-51.0); HEMOGLOBIN 9.2 g/dL (13.6-17.8); MEAN CORPUS HGB CONC 33.1 g/dL (32.0-36.0); MEAN CORPUSCULAR HEMOGLOB 28.1 pg (26.0-34.0); MEAN PLATELET VOLUME 10.5 fL (9.2-13.0); PLATELET COUNT 144 10/3/uL (150-400); RBC DISTRIBUTION WIDTH 15.5 % (12.0-16.0); RED CELL COUNT 3.27 10/6/uL (4.7-6.1); WHITE BLOOD CELLS 7.9 10/3/uL (4.5-10.5)
[2017-02-14 04:50] LABS: MANUAL DIFF YES %
[2017-02-14 05:05] LABS: BUN (BLOOD UREA NITROGEN) 66 MG/DL (6-23); CALCIUM, SERUM 8.3 MG/DL (8.5-10.4); CHLORIDE, SERUM 97 MMOL/L (96-112); CO2 (CARBON DIOXIDE) 22 MMOL/L (24-34); GFR AFRICAN AMERICAN 26 ML/MIN (>=60); GFR NON AFRICAN AMERICAN 22 ML/MIN (>=60); GLUCOSE, SERUM 181 MG/DL (60-99); PHOSPHORUS, SERUM 5.3 MG/DL (2.5-4.5); POTASSIUM, SERUM 4.8 MMOL/L (3.5-5.3); SODIUM, SERUM 132 MMOL/L (135-148)
[2017-02-14 05:46] LABS: BAND NEUTROPHILS 4 %; EOSINOPHILS 1 %; EOSINOPHILS ABSOLUTE (CALC) 0.08 10/3/uL (0.0-0.53); LYMPHOCYTES 20 %; LYMPHOCYTES ABSOLUTE (CALC) 1.58 10/3/uL (0.67-4.30); MONOCYTES 2 %; MONOCYTES ABSOLUTE (CALC) 0.16 10/3/uL (0.21-1.20); NEUTROPHILS ABSOLUTE (CALC) 6.08 10/3/uL (2.02-8.40); PLATELET ESTIMATE ADQ (ADEQUATE); RBC MORPHOLOGY NORM (NORMAL); SEGMENTED NEUTROPHIL (0) 73 %; TOTAL NUCLEATED CELLS 100
[2017-02-15 05:00] LABS: BASOPHILS 0.1 %; BASOPHILS ABSOLUTE 0.01 10/3/uL (0.0-0.16); EOSINOPHILS 0.8 %; EOSINOPHILS ABSOLUTE 0.06 10/3/uL (0.0-0.53); HEMATOCRIT 25.7 % (40.0-51.0); HEMOGLOBIN 8.7 g/dL (13.6-17.8); IMMATURE GRANULOCYTES 0.3 %; IMMATURE GRANULOCYTES ABSOLUTE 0.02 10/3/uL (0.0-0.11); LYMPHOCYTES 22.5 %; LYMPHOCYTES ABSOLUTE 1.65 10/3/uL (0.67-4.30); MANUAL DIFF NO %; MEAN CORPUS HGB CONC 33.9 g/dL (32.0-36.0); MEAN CORPUSCULAR HEMOGLOB 28.2 pg (26.0-34.0); MEAN CORPUSCULAR VOLUME 83.2 fL (80-100); MEAN PLATELET VOLUME 10.5 fL (9.2-13.0); MONOCYTES 15.8 %; MONOCYTES ABSOLUTE 1.16 10/3/uL (0.21-1.20); NEUTROPHILS 60.5 %; NEUTROPHILS ABSOLUTE 4.44 10/3/uL (2.02-8.40); PLATELET COUNT 149 10/3/uL (150-400); RBC DISTRIBUTION WIDTH 15.2 % (12.0-16.0); RED CELL COUNT 3.09 10/6/uL (4.7-6.1); WHITE BLOOD CELLS 7.3 10/3/uL (4.5-10.5)
[2017-02-15 05:13] LABS: ALBUMIN 2.8 G/DL (3.5-5.0); CALCIUM, SERUM 8.2 MG/DL (8.5-10.4); CHLORIDE, SERUM 97 MMOL/L (96-112); CO2 (CARBON DIOXIDE) 25 MMOL/L (24-34); CREATININE 2.75 MG/DL (0.70-1.30); GFR AFRICAN AMERICAN 26 ML/MIN (>=60); GFR NON AFRICAN AMERICAN 23 ML/MIN (>=60); PHOSPHORUS, SERUM 4.9 MG/DL (2.5-4.5); SODIUM, SERUM 135 MMOL/L (135-148)
[2017-02-15 05:29] LABS: BUN (BLOOD UREA NITROGEN) 73 MG/DL (6-23); GLUCOSE, SERUM 77 MG/DL (60-99); POTASSIUM, SERUM 3.7 MMOL/L (3.5-5.3)
[2017-02-16 04:34] LABS: BASOPHILS 0.2 %; BASOPHILS ABSOLUTE 0.02 10/3/uL (0.0-0.16); EOSINOPHILS 1.2 %; HEMATOCRIT 26.6 % (40.0-51.0); HEMOGLOBIN 8.8 g/dL (13.6-17.8); IMMATURE GRANULOCYTES 0.6 %; IMMATURE GRANULOCYTES ABSOLUTE 0.05 10/3/uL (0.0-0.11); LYMPHOCYTES 16.3 %; LYMPHOCYTES ABSOLUTE 1.38 10/3/uL (0.67-4.30); MEAN CORPUS HGB CONC 33.1 g/dL (32.0-36.0); MEAN CORPUSCULAR HEMOGLOB 27.4 pg (26.0-34.0); MEAN CORPUSCULAR VOLUME 82.9 fL (80-100); MEAN PLATELET VOLUME 10.4 fL (9.2-13.0); MONOCYTES 17.8 %; MONOCYTES ABSOLUTE 1.51 10/3/uL (0.21-1.20); NEUTROPHILS 63.9 %; PLATELET COUNT 177 10/3/uL (150-400); RBC DISTRIBUTION WIDTH 15.1 % (12.0-16.0); RED CELL COUNT 3.21 10/6/uL (4.7-6.1); WHITE BLOOD CELLS 8.5 10/3/uL (4.5-10.5)
[2017-02-16 04:42] LABS: MANUAL DIFF NO %
[2017-02-16 04:47] LABS: CALCIUM, SERUM 8.1 MG/DL (8.5-10.4); CHLORIDE, SERUM 93 MMOL/L (96-112); CREATININE 2.58 MG/DL (0.70-1.30); GFR AFRICAN AMERICAN 28 ML/MIN (>=60); GFR NON AFRICAN AMERICAN 24 ML/MIN (>=60); GLUCOSE, SERUM 78 MG/DL (60-99); POTASSIUM, SERUM 3.4 MMOL/L (3.5-5.3); SODIUM, SERUM 135 MMOL/L (135-148)
[2017-02-16 04:48] LABS: BUN (BLOOD UREA NITROGEN) 79 MG/DL (6-23); CO2 (CARBON DIOXIDE) 30 MMOL/L (24-34)
[2017-02-16 05:45] LABS: ALBUMIN 2.8 G/DL (3.5-5.0); PHOSPHORUS, SERUM 5.3 MG/DL (2.5-4.5)
[2017-02-16 06:34] LABS: INTERNATIONAL NORMAL RATI 1.4 UNITS (-); PROTIME (NOT ORD) 17.2 SEC (12.0-14.5)
[2017-02-17 05:17] LABS: BASOPHILS 0.1 %; BASOPHILS ABSOLUTE 0.01 10/3/uL (0.0-0.16); EOSINOPHILS 1.1 %; HEMOGLOBIN 9.2 g/dL (13.6-17.8); IMMATURE GRANULOCYTES 0.3 %; IMMATURE GRANULOCYTES ABSOLUTE 0.03 10/3/uL (0.0-0.11); LYMPHOCYTES 10.9 %; LYMPHOCYTES ABSOLUTE 0.97 10/3/uL (0.67-4.30); MEAN CORPUS HGB CONC 32.9 g/dL (32.0-36.0); MEAN CORPUSCULAR HEMOGLOB 27.3 pg (26.0-34.0); MEAN CORPUSCULAR VOLUME 83.1 fL (80-100); MEAN PLATELET VOLUME 9.6 fL (9.2-13.0); MONOCYTES 16.3 %; MONOCYTES ABSOLUTE 1.45 10/3/uL (0.21-1.20); NEUTROPHILS 71.3 %; NEUTROPHILS ABSOLUTE 6.31 10/3/uL (2.02-8.40); PLATELET COUNT 191 10/3/uL (150-400); RBC DISTRIBUTION WIDTH 14.7 % (12.0-16.0); RED CELL COUNT 3.37 10/6/uL (4.7-6.1); WHITE BLOOD CELLS 8.9 10/3/uL (4.5-10.5)
[2017-02-17 05:18] LABS: MANUAL DIFF NO %
[2017-02-17 05:23] LABS: INTERNATIONAL NORMAL RATI 1.4 UNITS (-); PROTIME (NOT ORD) 17.4 SEC (12.0-14.5)
[2017-02-17 05:39] LABS: A/G RATIO 0.8 (0.7-1.9); ALBUMIN 2.7 G/DL (3.5-5.0); ALKALINE PHOSPHATASE 71 U/L (45-117); BUN (BLOOD UREA NITROGEN) 61 MG/DL (6-23); CALCIUM, SERUM 7.9 MG/DL (8.5-10.4); CHLORIDE, SERUM 96 MMOL/L (96-112); CO2 (CARBON DIOXIDE) 29 MMOL/L (24-34); CREATININE 2.38 MG/DL (0.70-1.30); GFR AFRICAN AMERICAN 31 ML/MIN (>=60); GFR NON AFRICAN AMERICAN 27 ML/MIN (>=60); GLOBULIN 3.4 G/DL (2.5-4.1); GLUCOSE, SERUM 154 MG/DL (60-99); PHOSPHORUS, SERUM 3.8 MG/DL (2.5-4.5); POTASSIUM, SERUM 3.7 MMOL/L (3.5-5.3); SGOT(AST) 25 U/L (5-40); SGPT(ALT) 26 U/L (5-65); SODIUM, SERUM 134 MMOL/L (135-148); TOTAL BILIRUBIN 1.1 MG/DL (0-1.2); TOTAL PROTEIN 6.1 G/DL (6.0-8.5)
[2017-02-18 06:23] LABS: BASOPHILS 0.3 %; BASOPHILS ABSOLUTE 0.02 10/3/uL (0.0-0.16); EOSINOPHILS 0.6 %; EOSINOPHILS ABSOLUTE 0.04 10/3/uL (0.0-0.53); HEMATOCRIT 27.8 % (40.0-51.0); HEMOGLOBIN 9.4 g/dL (13.6-17.8); IMMATURE GRANULOCYTES 0.3 %; IMMATURE GRANULOCYTES ABSOLUTE 0.02 10/3/uL (0.0-0.11); LYMPHOCYTES 16.2 %; LYMPHOCYTES ABSOLUTE 1.11 10/3/uL (0.67-4.30); MEAN CORPUS HGB CONC 33.8 g/dL (32.0-36.0); MEAN CORPUSCULAR HEMOGLOB 27.4 pg (26.0-34.0); MEAN PLATELET VOLUME 9.4 fL (9.2-13.0); MONOCYTES 19.6 %; MONOCYTES ABSOLUTE 1.34 10/3/uL (0.21-1.20); NEUTROPHILS ABSOLUTE 4.31 10/3/uL (2.02-8.40); PLATELET COUNT 187 10/3/uL (150-400); RED CELL COUNT 3.43 10/6/uL (4.7-6.1); WHITE BLOOD CELLS 6.8 10/3/uL (4.5-10.5)
[2017-02-18 06:24] LABS: INTERNATIONAL NORMAL RATI 2.3 UNITS (-); PROTIME (NOT ORD) 25.1 SEC (12.0-14.5)
[2017-02-18 06:28] LABS: MANUAL DIFF NO %
[2017-02-18 06:32] LABS: ALBUMIN 2.5 G/DL (3.5-5.0); BUN (BLOOD UREA NITROGEN) 57 MG/DL (6-23); CALCIUM, SERUM 8.1 MG/DL (8.5-10.4); CHLORIDE, SERUM 95 MMOL/L (96-112); CO2 (CARBON DIOXIDE) 27 MMOL/L (24-34); CREATININE 2.25 MG/DL (0.70-1.30); GFR AFRICAN AMERICAN 33 ML/MIN (>=60); GFR NON AFRICAN AMERICAN 29 ML/MIN (>=60); GLUCOSE, SERUM 146 MG/DL (60-99); PHOSPHORUS, SERUM 3.8 MG/DL (2.5-4.5); POTASSIUM, SERUM 3.8 MMOL/L (3.5-5.3); SODIUM, SERUM 135 MMOL/L (135-148)
[2017-02-18 07:27] LABS: BAND NEUTROPHILS 3 %; LYMPHOCYTES 21 %; LYMPHOCYTES ABSOLUTE (CALC) 1.43 10/3/uL (0.67-4.30); MONOCYTES 22 %; NEUTROPHILS ABSOLUTE (CALC) 3.88 10/3/uL (2.02-8.40); SEGMENTED NEUTROPHIL (0) 54 %; TOTAL NUCLEATED CELLS 100
[2017-02-18 07:28] LABS: PLATELET ESTIMATE ADQ (ADEQUATE); RBC MORPHOLOGY NORM (NORMAL)
[2017-02-19 06:27] LABS: MEAN CORPUS HGB CONC 33.3 g/dL (32.0-36.0); MEAN CORPUSCULAR HEMOGLOB 27.6 pg (26.0-34.0); MEAN CORPUSCULAR VOLUME 82.8 fL (80-100); MEAN PLATELET VOLUME 9.2 fL (9.2-13.0); PLATELET COUNT 184 10/3/uL (150-400); RBC DISTRIBUTION WIDTH 14.8 % (12.0-16.0); RED CELL COUNT 3.26 10/6/uL (4.7-6.1); WHITE BLOOD CELLS 7.8 10/3/uL (4.5-10.5)
[2017-02-19 06:29] LABS: INTERNATIONAL NORMAL RATI 2.3 UNITS (-); PROTIME (NOT ORD) 25.1 SEC (12.0-14.5)
[2017-02-19 06:33] LABS: MANUAL DIFF YES %
[2017-02-19 06:43] LABS: ALBUMIN 2.5 G/DL (3.5-5.0); BUN (BLOOD UREA NITROGEN) 56 MG/DL (6-23); CALCIUM, SERUM 8.1 MG/DL (8.5-10.4); CHLORIDE, SERUM 97 MMOL/L (96-112); CO2 (CARBON DIOXIDE) 26 MMOL/L (24-34); CREATININE 2.22 MG/DL (0.70-1.30); GFR AFRICAN AMERICAN 34 ML/MIN (>=60); GFR NON AFRICAN AMERICAN 29 ML/MIN (>=60); GLUCOSE, SERUM 135 MG/DL (60-99); PHOSPHORUS, SERUM 3.3 MG/DL (2.5-4.5); POTASSIUM, SERUM 3.7 MMOL/L (3.5-5.3); SODIUM, SERUM 135 MMOL/L (135-148)
[2017-02-19 08:00] LABS: BAND NEUTROPHILS 6 %; EOSINOPHILS 3 %; EOSINOPHILS ABSOLUTE (CALC) 0.23 10/3/uL (0.0-0.53); LYMPHOCYTES 20 %; LYMPHOCYTES ABSOLUTE (CALC) 1.56 10/3/uL (0.67-4.30); MONOCYTES 17 %; MONOCYTES ABSOLUTE (CALC) 1.33 10/3/uL (0.21-1.20); NEUTROPHILS ABSOLUTE (CALC) 4.68 10/3/uL (2.02-8.40); PLATELET ESTIMATE ADQ (ADEQUATE); RBC MORPHOLOGY NORM (NORMAL); SEGMENTED NEUTROPHIL (0) 54 %; TOTAL NUCLEATED CELLS 100
[2017-02-20 06:19] LABS: INTERNATIONAL NORMAL RATI 2.1 UNITS (-); PROTIME (NOT ORD) 23.2 SEC (12.0-14.5)
[2017-02-20 06:31] LABS: ALBUMIN 2.6 G/DL (3.5-5.0); BUN (BLOOD UREA NITROGEN) 56 MG/DL (6-23); CALCIUM, SERUM 7.9 MG/DL (8.5-10.4); CHLORIDE, SERUM 100 MMOL/L (96-112); CO2 (CARBON DIOXIDE) 25 MMOL/L (24-34); GFR AFRICAN AMERICAN 34 ML/MIN (>=60); GFR NON AFRICAN AMERICAN 29 ML/MIN (>=60); GLUCOSE, SERUM 161 MG/DL (60-99); PHOSPHORUS, SERUM 3.2 MG/DL (2.5-4.5); POTASSIUM, SERUM 3.8 MMOL/L (3.5-5.3); SODIUM, SERUM 136 MMOL/L (135-148)
== END 2017-02-20 19:04 | DRG 216 ==
LOC: ER 05:06 → CDU1 06:47 → CDU2 07:20 → 5NO 02-05 07:48 → CCU 02-07 00:58 → 7NO 02-08 13:14 → CVICU 02-11 15:05 → 5NO 02-13 10:39 → CVICU 02-13 10:42 → 5NO 02-13 16:01
PROVIDERS: Anesthesiology; Hospitalist; Internal Medicine; Internal Medicine Cardiovascular Disease; Internal Medicine Nephrology; Internal Medicine Pulmonary Disease; Nurse Practitioner Family; Thoracic Surgery (Cardiothoracic Vascular Surgery)
PROC: B246ZZ4 Ultrasonography of Right and Left Heart, Transesophageal (ICD-10-PCS; 2017-02-04)
PROC: 4A023N7 Measurement of Cardiac Sampling and Pressure, Left Heart, Percutaneous Approach (ICD-10-PCS; principal; 2017-02-06)
PROC: B2111ZZ Fluoroscopy of Multiple Coronary Arteries using Low Osmolar Contrast (ICD-10-PCS; 2017-02-06)
PROC: 0JH607Z Insertion of Cardiac Resynchronization Pacemaker Pulse Generator into Chest Subcutaneous Tissue and Fascia, Open Approach (ICD-10-PCS; 2017-02-06)
PROC: 02H43JZ Insertion of Pacemaker Lead into Coronary Vein, Percutaneous Approach (ICD-10-PCS; 2017-02-06)
PROC: B2151ZZ Fluoroscopy of Left Heart using Low Osmolar Contrast (ICD-10-PCS; 2017-02-06)
PROC: 02HV33Z Insertion of Infusion Device into Superior Vena Cava, Percutaneous Approach (ICD-10-PCS; 2017-02-07)
PROC: 5A1221Z Performance of Cardiac Output, Continuous (ICD-10-PCS; 2017-02-11)
PROC: B246ZZ4 Ultrasonography of Right and Left Heart, Transesophageal (ICD-10-PCS; 2017-02-11)
PROC: 05HM33Z Insertion of Infusion Device into Right Internal Jugular Vein, Percutaneous Approach (ICD-10-PCS; 2017-02-11)
PROC: B543ZZA Ultrasonography of Right Jugular Veins, Guidance (ICD-10-PCS; 2017-02-11)
PROC: 02L70CK Occlusion of Left Atrial Appendage with Extraluminal Device, Open Approach (ICD-10-PCS; 2017-02-11)
PROC: 30233K1 Transfusion of Nonautologous Frozen Plasma into Peripheral Vein, Percutaneous Approach (ICD-10-PCS; 2017-02-11)
PROC: 30233R1 Transfusion of Nonautologous Platelets into Peripheral Vein, Percutaneous Approach (ICD-10-PCS; 2017-02-11)
PROC: 02RG08Z Replacement of Mitral Valve with Zooplastic Tissue, Open Approach (ICD-10-PCS; 2017-02-11 12:00)
PROC: 02580ZZ Destruction of Conduction Mechanism, Open Approach (ICD-10-PCS; 2017-02-11 12:00)
PROC: 30233N1 Transfusion of Nonautologous Red Blood Cells into Peripheral Vein, Percutaneous Approach (ICD-10-PCS; 2017-02-12)
PROC: 02HK3JZ Insertion of Pacemaker Lead into Right Ventricle, Percutaneous Approach (ICD-10-PCS; 2017-02-16)
PROC: 02H63JZ Insertion of Pacemaker Lead into Right Atrium, Percutaneous Approach (ICD-10-PCS; 2017-02-16)
DX: I34.0 Nonrheumatic mitral (valve) insufficiency (principal); J96.01 Acute respiratory failure with hypoxia; N17.9 Acute kidney failure, unspecified; I50.23 Acute on chronic systolic (congestive) heart failure; J96.02 Acute respiratory failure with hypercapnia; I13.0 Hypertensive heart and chronic kidney disease with heart failure and stage 1 through stage 4 chronic kidney disease, or unspecified chronic kidney disease; I25.2 Old myocardial infarction; I48.0 Paroxysmal atrial fibrillation; I25.10 Atherosclerotic heart disease of native coronary artery without angina pectoris; N18.3 Chronic kidney disease, stage 3 (moderate); E78.5 Hyperlipidemia, unspecified; Z95.5 Presence of coronary angioplasty implant and graft; Z79.899 Other long term (current) drug therapy; Z79.01 Long term (current) use of anticoagulants; E11.22 Type 2 diabetes mellitus with diabetic chronic kidney disease; Z79.84 Long term (current) use of oral hypoglycemic drugs; Z86.73 Personal history of transient ischemic attack (TIA), and cerebral infarction without residual deficits; F32.9 Major depressive disorder, single episode, unspecified; N40.1 Benign prostatic hyperplasia with lower urinary tract symptoms; R33.8 Other retention of urine; G47.33 Obstructive sleep apnea (adult) (pediatric); Z87.891 Personal history of nicotine dependence
CPT/HCPCS: 33208; 33225; 36415; 36569; 36600; 71010; 71020; 76376; 76775; 80048; 80053; 80061; 80069; 81001; 82248; 82330; 82570; 82803; 82805; 82947; 82962; 83036; 83735; 83880; 84100; 84132; 84156; 84295; 84439; 84443; 84484; 85014; 85018; 85025; 85347; 85379; 85384; 85610; 85730; 86850; 86900; 86901; 86920; 87641; 88305; 93005; 93306; 93312; 93320; 93325; 93458; 94002; 94640; 94660; 94770; 97161-GP; 97165-GO; 97530-GP; 97535-GO; 99152; 99285; A9270-GY; C1713; C1750; C1751; C1769; C1887; C1892; C1894; C1898; C1900; C2618; C2621; G0257; J0360; J0690; J1644; J2150; J2250; J2260; J2370; J2405; J2720; J2765; J2930; J3010; J3370; J3480; P9016; P9035; P9045; P9047; P9059; Q9967

== ENCOUNTER 2017-03-16 12:37 | Inpatient (IN) | payer OTHER ==
--- NOTE | ~2017-03-16 | EGD ---
EGD REPORT [facility] [address] [address] NAME: GALLO VALENTINE : 49 STATUS : ADM IN PAT#: [id number] AGE: 71 ADM/REG DATE : 03/16/17 MR#: [id number] REPORT SERV DATE: 03/19/17 DICTATED BY: RENE HANSEN DATE: 03/19/17 REPORT STATUS : Draft [facility]ANSCRIBED BY: [facility] DATE: 03/19/17 Endoscopy Center Patient Name: Gallo Valentine Date of : 1945 Attending MD: RENE HANSEN MD Procedure Date No Time: 03/19/2017 Procedure: Colonoscopy Indications: Gastrointestinal occult blood loss Referring MD: ARPIT ALEXANDER MD Medicines: Monitored Anesthesia Care Complications: No immediate complications. Estimated blood loss: None. Procedure: Pre-Anesthesia Assessment: - ASA Grade Assessment: III - A patient with severe systemic disease. After I obtained informed consent, the scope was passed under direct vision. Throughout the procedure, the patient's blood pressure, pulse, and oxygen saturations were monitored continuously. The CF [id number] was introduced through the anus with the intention of advancing to the cecum. The scope was advanced to the sigmoid colon before the procedure was aborted. Medications were given. The colonoscopy was technically difficult and complex due to inadequate bowel prep. The patient tolerated the procedure well. The quality of the bowel preparation was unsatisfactory. Findings: The perianal and digital rectal examinations were normal. Pertinent negatives include no palpable rectal lesions. Copious quantities of semi-liquid stool with solid food debris was found in the rectum, in the recto-sigmoid colon and in the sigmoid colon, precluding visualization. This continuously clogged the suction channel and could not be aspirated. The procedure was therefore aborted secondary to inadequate prep. Impression: - Preparation of the colon was unsatisfactory. - Stool in the rectum, in the recto-sigmoid colon and in the sigmoid colon. Recommendation: - Return patient to hospital [facility] for ongoing care. - Clear liquid diet today. - GoLytely until clear - Repeat colonoscopy tomorrow because the bowel preparation was poor. EGD REPORT [facility] [address] [place] [address] NAME: GALLO VALENTINE : 49 STATUS : ADM IN [facility]#: [id number] AGE: 71 ADM/REG DATE : 03/16/17 MR#: [id number] REPORT SERV DATE: 03/19/17 DICTATED BY: RENE HANSEN DATE: 03/19/17 REPORT STATUS : Draft TRANSCRIBED BY: Scalado DATE: 03/19/17 Procedure Code(s): --- Professional --- 87360, 53, Colonoscopy, flexible, proximal to splenic flexure; diagnostic, with or without collection of specimen(s) by brushing or washing, with or without colon decompression (separate procedure) Diagnosis Code(s): --- Professional --- R19.5, Other fecal abnormalities CPT copyright 2013 [employer]. All rights reserved. The codes documented in this report are preliminary and upon insurance coder review may be revised to meet current compliance requirements. Rene Hansen MD RENE HANSEN MD 03/19/2017 7:51 AM This report has been signed electronically. Number of Addenda: 0 Note Initiated On: 03/19/2017 7:14 AM Scope Withdrawal Time 0 hours 0 minutes 0 seconds [address] [place] [address]
--- NOTE | ~2017-03-16 | CN ---
Consultation Report [facility] [address] [place]. [address] NAME: SARAN VALENTINE : 49 STATUS : ADM IN PAT#: [id number] AGE: 71 ADM/REG DATE : 03/16/17 MR#: [id number] REPORT SERV DATE: 03/17/17 DICTATED BY: ORAL BROWN DATE: 03/16/17 REPORT STATUS : Draft TRANSCRIBED BY: MODL DATE: 03/16/17 DATE OF CONSULTATION: 03/16/2017 HISTORY OF PRESENT ILLNESS: This is a consultation from Dr. Piña regarding shortness of breath and question of congestive heart failure. Mr. Valentine is a pleasant, 71-year-old gentleman who recently underwent mitral valve replacement with a bioprosthetic St Sam valve by Dr. Reilly in early February of 2017. He then had issues with bradycardia and underwent a dual-chamber GRAND SCRIBE pacing device by Dr. Nader Pratt. At the time of his hospitalization, he was noted to have an ejection fraction of 40%. He underwent cardiac catheterization that revealed no evidence of significant coronary disease and a patent LAD stent that had been placed in 2013. He had atrial fibrillation, and the patient underwent attempt at maze procedure and cardioversion which failed to restore sinus rhythm. The patient was placed on amiodarone with the thought that they would try to cardiovert him back to sinus rhythm a few weeks later after the amiodarone had reached a stable serum level. In the interim, however, the patient began having increasing shortness of breath. This occurred fairly acutely over the last 2 to 3 days. He denied any chest pain or chest discomfort. He denied any cough, rigors, chills, or fever. About 4 days ago, he went to see his routing equipment tender who noted that he was anemic, and he was started on iron supplementation. When he presented to the emergency room, he underwent a chest x-ray that showed some question of a right lower lobe infiltrate. No clear evidence of pulmonary vascular congestion. He was found to be anemic although his blood count was essentially the same as what he left with in mid February after his valve replacement surgery. He had a Hemoccult-positive stool, but as mentioned, the patient was taking oral iron supplementation started a few days ago. He had a mildly elevated BNP of 330. The most notable finding is that his PT/INR was 10. He was given a dose of vitamin K 10 mg and was also administered some Lasix for gentle diuresis and placed on fluid restriction. PAST MEDICAL HISTORY: Notable for 1. A recent mitral valve replacement with a St Sam bioprosthetic valve performed by Dr. Reilly in early February of 2017. 2. Placement of a dual-chamber GRAND SCRIBE pacing device by Dr. Nader Pratt after the mitral valve replacement in early February. 3. Persistent atrial fibrillation unable to be converted to sinus rhythm, post maze procedure and currently on amiodarone along with Coumadin. 4. Moderate LV dysfunction with ejection fraction prior to valve replacement of 40%. 5. Renal insufficiency stage 3 with his current creatinine actually slightly better than what was found in mid February at the time of his valve replacement. 6. Remote stent to the LAD in 2013 and prior anterior myocardial infarction, recent cardiac catheterization prior to mitral valve replacement showing no evidence of coronary disease and patent LAD stent. 7. Obstructive sleep apnea. 8. Diabetes. 9. Hypertension. Consultation Report [address] [address] NAME: SARAN VALENTINE : 49 STATUS : ADM IN [facility]#: [id number] AGE: 71 ADM/REG DATE : 03/16/17 MR#: [id number] REPORT SERV DATE: 03/17/17 DICTATED BY: ORAL BROWN DATE: 03/16/17 REPORT STATUS : Draft TRANSCRIBED BY: JUAN C DATE: 03/16/17 FAMILY HISTORY: Noncontributory. Negative for premature coronary disease. SOCIAL HISTORY: Ex-tobacco abuse. Negative for alcohol. REVIEW OF SYSTEMS: As noted above. All other systems reviewed and negative. PHYSICAL EXAMINATION: GENERAL: He is in no acute distress but is complaining of shortness of breath. Denying any chest pain. VITAL SIGNS: His blood pressure is 140/86, his pulse is in the 70s in atrial fibrillation, respirations of 16, afebrile, O2 sat of 98%. HEENT: No icterus. Good dentition. NECK: Supple. No masses or thyromegaly LUNGS: Breathing comfortably. No rales or wheezes. COR: He is an irregularly irregular rhythm. Normal S1, S2. No S3 or S4. No murmurs, clicks, rubs. No JVD. ABD: Soft, nondistended, nontender, no hepatosplenomegaly. EXT: No clubbing, cyanosis or edema. Peripheral pulses 2+/=bilaterally. SKIN: Warm and dry. No visible lesions. MS: Chest wall without deformity, no obvious clavicular fractures. NEURO/PSYCH: Oriented X3. No anxiety or depression. IMAGING: EKG shows atrial fibrillation underlying with intermittent conducted beats but primarily demonstrating GRAND SCRIBE pacing with negative complex in lead 1 and aVL suggesting good lateral placement of the LV lead. LABORATORY VALUES: His white count is 7.3, his hemoglobin is 8.6 with a hematocrit of 28, platelet count 239. Sodium 141, potassium 4.6, BUN of 23, creatinine of 1.92, glucose of 247. His BNP is 328, his troponin is less than 0.04. INR was 10. Hemoccult is positive. Chest x-ray showed some question of a right lower lobe infiltrate, not clear that there was evidence of pulmonary vascular congestion. IMPRESSION: Complaints of shortness of breath, somewhat unclear in etiology. He does have an INR of 10. Has a history of prior GI bleeding. His hemoglobin is low although it is about the same that he had prior to his discharge after the mitral valve replacement. He has a mild elevation in his BNP and known history of decreased LV systolic function, but his exam and chest x-ray do not clearly show evidence of congestive heart failure. He is denying any abdominal or lower extremity swelling. He is denying any orthopnea. His main shortness of breath is when he is ambulating. He has atrial fibrillation, but again, this was present at the time of his discharge in mid February. He has renal insufficiency, but this is actually slightly better than it was at the time of his discharge post MVR. RECOMMENDATIONS: 1. He was administered vitamin K. I agree with performing this given his severe elevation Consultation Report [facility] [address] [place]. [address] NAME: SARAN VALENTINE : 49 STATUS : ADM IN [facility]#: [id number] AGE: 71 ADM/REG DATE : 03/16/17 MR#: [id number] REPORT SERV DATE: 03/17/17 DICTATED BY: ORAL BROWN DATE: 03/16/17 REPORT STATUS : Draft TRANSCRIBED BY: MODL DATE: 03/16/17 in PT/INR. This may be an interaction between amiodarone and Coumadin. 2. Would recommend just rate control for his atrial fibrillation at this point. We will continue his amiodarone for now. 3. The patient was administered a low dose of intravenous Lasix. We would plan on gentle diuresis, but we will need to watch his renal insufficiency very carefully as he has stage 3 chronic kidney disease. He is also undergoing fluid restriction. He is complaining of not having urinated, question if this is bladder issue or some form of obstruction or is related to issues of volume depletion. We would recommend a bladder scan. 4. Recommend repeating echocardiogram to evaluate his mitral valve replacement and LV systolic function. JEFFREY/JUAN C Oral Brown M.D. / [id number]
--- NOTE | ~2017-03-16 | CN ---
Consultation Report [facility] [address] [facility] [place]. [address] NAME: SARAN VALENTINE : 49 STATUS : ADM IN [facility]#: [id number] AGE: 71 ADM/REG DATE : 03/16/17 MR#: [id number] REPORT SERV DATE: 03/18/17 DICTATED BY: RENE HANSEN DATE: 03/18/17 REPORT STATUS : Draft TRANSCRIBED BY: MODL DATE: 03/18/17 INPATIENT CONSULTATION DATE OF CONSULTATION: 03/18/2017 REASON FOR CONSULTATION: Anemia and occult GI blood loss. HISTORY OF PRESENT ILLNESS: Mr. Valentine is a very pleasant 71-year-old male with a past medical history most significant for coronary artery disease; congestive heart failure; and valvular disease, status post recent mitral valve replacement; as well as atrial fibrillation, who presented to the emergency department with complaints of shortness of breath. As part of his review, the patient was noted to be significantly anemic compared to prior lab results with hemoglobin level of approximately 8.6. This patient recently had had hemoglobin levels between 10 and 11 in the recent past. The patient denied any black stools or bright red blood in his stools. No nausea or vomiting. No hematemesis. No blood in his urine. The patient states that his last colonoscopy was approximately five or six years ago and performed by his primary it operations analyst, Dr. Ailyn Lord. Upon presentation, the patient's INR was also noted to be markedly elevated at 10. GI was consulted after the patient was found to have evidence of occult blood in his stools. No family history of GI related malignancies. The patient denies any significant NSAID use, but does take an aspirin daily along with his Coumadin. REVIEW OF SYSTEMS: All systems reviewed were negative aside from what was mentioned in the history of present illness. PAST MEDICAL HISTORY: Includes. 1. Coronary artery disease. 2. Mitral valve replacement, 2017. 3. Mild congestive heart failure. 4. Paroxysmal atrial fibrillation, status post maze procedure. 5. Hypertension. 6. Type 2 diabetes. 7. Erectile dysfunction. 8. Sleep apnea. 9. Prior stroke. 10.Chronic kidney disease, stage 3. 11.History of prior kidney stones. 12.BPH. 13.History of diverticulitis with perforation. 14.History of peptic ulcer disease. 15.Peripheral arterial disease. Consultation Report [facility] [address] [facility] [place] [place]. [address] NAME: SARAN VALENTINE : 49 STATUS : ADM IN PAT#: [id number] AGE: 71 ADM/REG DATE : 03/16/17 MR#: [id number] REPORT SERV DATE: 03/18/17 DICTATED BY: RENE HANSEN DATE: 03/18/17 REPORT STATUS : Draft TRANSCRIBED BY: MODGurinder DATE: 03/18/17 FAMILY HISTORY: Patient denies family history of GI related malignancy. SOCIAL HISTORY: The patient quit smoking 20 years ago. No alcohol use recently as he is an ex-alcoholic and no illicit substance use. ALLERGIES: THE PATIENT HAS NO KNOWN DRUG ALLERGIES. OUTPATIENT MEDICATIONS: Include, 1. Folic acid. 2. Guymon-3 fatty acids. 3. Coumadin. 4. Glipizide. 5. Ferrous sulfate. 6. Amitriptyline. 7. Carvedilol. 8. Amlodipine. 9. Amiodarone. 10.Spironolactone. 11.Atorvastatin. 12.Docusate. 13.Aspirin. 14.Melatonin. 15.MiraLAX. 16.Flomax. PHYSICAL EXAMINATION: VITAL SIGNS: Most recent vital signs include a temperature of 96.6, pulse rate of 83, blood pressure is 126/79. The patient is saturating 97% on room air. GENERAL: Reveals an elderly male, lying in bed, no apparent distress. HEENT: Head is normocephalic, atraumatic with normal inspection of the oral mucosa and posterior pharynx. Sclerae nonicteric. Pupils are equal and round. NECK: Supple without lymphadenopathy. CARDIAC: Heart rate is irregularly irregular. LUNGS: Lung sounds clear to auscultation bilaterally. ABDOMEN: Soft, nontender, nondistended with normoactive bowel sounds. EXTREMITIES: The patient has no cyanosis, clubbing, or edema. SKIN: No jaundice or rash. NEURO: No gross motor deficits. He is alert and oriented. Mood and affect are appropriate. Judgment appears to be intact. LABORATORY STUDIES: Most recent laboratory results include a CBC that shows a white count of 6.4, hemoglobin of 8.7, and a platelet count of 202,000. Electrolyte panel was only remarkable for mildly elevated BUN of 30, creatinine of 1.8, otherwise normal electrolytes. Consultation Report [address] [place]. [address] NAME: SARAN VALENTINE : 49 STATUS : ADM IN PAT#: [id number] AGE: 71 ADM/REG DATE : 03/16/17 MR#: [id number] REPORT SERV DATE: 03/18/17 DICTATED BY: RENE HANSEN DATE: 03/18/17 REPORT STATUS : Draft TRANSCRIBED BY: JUAN C DATE: 03/18/17 No pertinent imaging to review. ASSESSMENT AND PLAN: Mr. Valentine is a very pleasant, 71-year-old male with no significant past medical history, who presents with complaints of shortness of breath and was found to be anemic compared to baseline. He is also found to have occult blood in his stools and a markedly elevated INR. The patient does have a history of peptic ulcer disease. We will perform EGD and colonoscopy for further assessment of the patient's anemia, although the patient's INR will need to be corrected down to below 2.0 prior to evaluation. We will give him bowel prep tonight in anticipation of colonoscopy tomorrow. The patient should also receive two units of FFP and have his hemoglobin held. Will need to have further units of FFP if his INR continues to remain above 2.0. Thank you very much for this interesting consult. Please call with any questions or concerns. JAKE/JUAN C Rene Hansen MD / [id number] CC: Simone Weaver M.D.
--- NOTE | ~2017-03-16 | HP ---
History And Physical [place] [address] [place]. [address] NAME: SARAN HAWKINS : 49 STATUS : ADM IN PAT#: [id number] AGE: 71 ADM/REG DATE : 03/16/17 MR#: [id number] REPORT SERV DATE: 03/16/17 DICTATED BY: AMANDA GANN DATE: 03/16/17 REPORT STATUS : Draft TRANSCRIBED BY: MODL DATE: 03/16/17 DATE OF ADMISSION: 03/16/2017 IDENTIFYING DATA: A 71-year-old white male whose PCP is Dr. Tiago Olmos; printer slotter operator, Dr. Tiago Perez; dental laboratory technician apprentice, Dr. Mariela Payton; urologist, Dr. Marlo Gonzales. CHIEF COMPLAINT: Shortness of breath. HISTORY OF PRESENT ILLNESS: This history of present illness is obtained by talking directly with the patient as well as with the ER physician, as well as reviewing [email or web address] and [employer] and looking at the ER paper chart. The patient had some hospitalizations early in 2016, ended up at [facility]. During one of those, he had atrial fibrillation with rapid ventricular response. He had cardioversion and initiation of amiodarone. He was hospitalized here on 02/02/2017 with acute congestive heart failure and acute kidney injury. During that hospitalization, he ended up in the intensive care on BiPAP and needing diuresis for acute pulmonary edema. He then underwent surgical tissue mitral valve replacement with bilateral maze procedure on 02/11/2017. Postprocedure, he ended up with a complete heart block and had a pacer placed as part of cardiac resynchronization therapy on 02/16/[address] Nader Pratt. The patient went to [facility] for about nine days and went home on 03/01/2017. Three days ago, he states his Lasix was discontinued by Nephrology because they felt his creatinine was going up too much, that is his understanding of it. Spironolactone was used in its place. He states over those three days, he has had gradual but definite increase in his shortness of breath with dyspnea on exertion getting to the point of dyspnea at rest with some orthopnea. He has had no chest pain. He came to the emergency room today where he was noted to have some asymmetric right pulmonary edema. He was also noted to have an INR of 10. He states he had been on Coumadin for last several years for his atrial fibrillation. He states he has been on 4 mg ever since he left the hospital. He has not had his INR checked since he was discharged from the hospital here. I asked him if he had it done at [facility], he stated that they tried to stick him several times and could not get the blood and he declined to have them draw it again and he thought he was going to see Dr. Perez soon thereafter, but he has not seen him yet. REVIEW OF SYSTEMS: He has been very constipated lately. He has a slow urine stream, but that is not new for him. He states he has 13 or 14 times per night that he has to get to go the bathroom, but that is not new either. He states he has enlarged prostate and has been in this way for years. He denies fever, sore throat, cough, chest pain, abdominal pain, nausea, vomiting, diarrhea, rectal bleeding, melena, dysuria, peripheral edema, rash, headaches, anorexia. He states he did lose about 20 pounds with his Lianna heart surgery and hospitalization. ALLERGIES: NO KNOWN DRUG ALLERGIES. History And Physical [address] [address] NAME: SARAN HAWKINS : 49 STATUS : ADM IN [facility]#: [id number] AGE: 71 ADM/REG DATE : 03/16/17 MR#: [id number] REPORT SERV DATE: 03/16/17 DICTATED BY: AMANDA GANN DATE: 03/16/17 REPORT STATUS : Draft TRANSCRIBED BY: MODGurinder DATE: 03/16/17 PAST MEDICAL HISTORY: He denies any history of asthma, COPD, seizures, thyroid disease, cancer. He has known coronary artery disease with an anterior HI in 2013. He had a PCI at that time. He had the above-mentioned mitral valve replacement. Echocardiogram on 02/02/2017 showed left atrial size 5.5 cm 40% left ventricular ejection fraction, moderate mitral regurgitation. Transesophageal echo on 02/04/2017 showed severe mitral regurgitation with left ventricular ejection fraction of 40%. He has had paroxysmal atrial fibrillation for some time. He has had cardioversions at [facility] earlier this year and as mentioned above after his mitral valve replacement, he ended up with complete heart block and so he had a pacer with cardiac resynchronization therapy, 02/16/2017. He has a history of hypertension. He has diabetes mellitus type 2. He has erectile dysfunction. His diabetes has been there for about six years. He has known sleep apnea and he wears CPAP. He had an old stroke in 2015. He states his gait has been unsteady ever since then. No focal neurologic deficit otherwise. He has chronic kidney disease stage 3 to 4. He has had previous kidney stones treated with ESWL. He mentions he has a history of benign prostatic hypertrophy. He has had previous diverticulitis with perforation, jaundice, peritonitis, ended up having multiple bowel surgeries. He has had previous peptic ulcers many years ago, and he has a history of peripheral arterial disease. HOME MEDICATIONS: Amiodarone 200 mg daily, amitriptyline 10 mg at bedtime, Norvasc 10 mg daily, aspirin 81 mg daily, Lipitor 40 mg daily, Coreg 6.25 mg b.i.d., docusate 200 mg b.i.d., ferrous sulfate 325 mg b.i.d., glipizide 20 mg in the morning and 10 in the evening, melatonin 10 mg at bedtime, fish oil 1200 mg b.i.d., MiraLAX one packet daily p.r.n., spironolactone 25 mg daily (this is an increase from the dose of 12.5 mg daily that he was on when he left the hospital here), Flomax 0.8 mg daily, folic acid unknown strength daily, glycerin suppository p.r.n., Coumadin 4 mg at bedtime. PAST SURGICAL HISTORY: He has had a mitral valve replacement, cardiac resynchronization pacer, ESWL for kidney stones, cholecystectomy, partial colectomies, and he thinks appendectomy was done as part of one of his abdominal surgeries. He has had left carotid endarterectomy and he had right knee arthroscopy. SOCIAL HISTORY: He quit smoking cigarettes 20 years ago, but he prior to that smoked 3-1/2 packs per day. 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 He walks with a cane. FAMILY HISTORY: Mother and father were both alcoholics. Mother with lymphoma. Father with heart attack. He is an only child. DIAGNOSTIC DATA: Chest x-ray done as a PA and lateral today reveals asymmetric right-sided pulmonary edema. He has a small left pleural effusion less likely an infiltrate, this is per my interpretation. EKG done today at 1019 hours reveals paced rhythm with what appears to be an underlying right bundle-branch block pattern per my interpretation. Sodium 141, History And Physical [facility] [address] [place]. [address] NAME: SARAN HAWKINS : 49 STATUS : ADM IN [facility]#: [id number] AGE: 71 ADM/REG DATE : 03/16/17 MR#: [id number] REPORT SERV DATE: 03/16/17 DICTATED BY: AMANDA GANN DATE: 03/16/17 REPORT STATUS : Draft TRANSCRIBED BY: MODL DATE: 03/16/17 potassium 4.6, chloride 113, CO2 is 20, calculated anion gap is 8, BUN is 23, creatinine 1.92 and by comparison, it was 2.12 when it was checked by Dr. Olmos on 03/06/2017. Today's glucose 247, calcium 8.9, magnesium 1.9. Troponin is 0.04. His B-natriuretic peptide today is 328.1. His last A1c was 7% on 03/06/2017. His white count is 7.3, hemoglobin is 8.6 and by comparison, it was 9.0 on 02/19/2017 and it was 11.2 on 02/11/2017. His platelets 239,000. His pro-time is 79.2, INR is 10.0, PTT is 76.7. PHYSICAL EXAMINATION: VITAL SIGNS: Temp is 98, pulse 80, respirations 18, blood pressure 140/70, O2 saturation is 98% on room air. GENERAL: Well-developed male, who appears at this time in no acute distress. HEAD: Atraumatic. Pupils are equal, round, and reactive to light. Extraocular motions are intact. No scleral icterus noted. Ear canals and TMs unremarkable with normal external ear examination and no inflammatory changes noted externally and normal hearing bilaterally. Nose, noninflamed externally. Septum midline. Nares patent. Mouth, moist. Good gag. No redness of the throat, gums, or lips. He has upper denture plate. NECK: Supple. No lymph node or thyroid enlargement. The carotids have good pulses. No bruits. He has a well-healed carotid endarterectomy scar on the left side of the neck. LUNGS: Crackles in the right mid and lower lung base posteriorly. Clear otherwise with only mildly increased respiratory effort. HEART: Regular rate and rhythm without murmur, gallop, click, or rub. ABDOMEN: Bowel sounds positive. Soft, nondistended, nontender. No masses. No organomegaly. No bruits noted. EXTREMITIES: Warm. He has good pulses. No clubbing, no cyanosis, no edema. No actively inflamed skin or joints. He does have a lot of bruising on his forearms. NEUROLOGICAL: He is alert, oriented, and cooperative with grossly normal motor and speech and cranial nerves 2 through 12. No Babinski. No clonus noted. ASSESSMENT: 1. Acute shortness of breath for three days, with dyspnea on exertion, dyspnea at rest, orthopnea and asymmetric right-sided pulmonary edema after discontinuation of his loop diuretic. This is most consistent with acute on chronic systolic congestive heart failure. It is probably due to reduced diuresis. It is less likely related to any problem with his cardiac pacemaker. 2. Chronic kidney disease that is baseline for him, it is stage 3 but he is now a little worse than he was back in January, but a little better than he was in February. 3. Acute blood loss anemia since his mitral valve replacement with guaiac-positive stools today. 4. Very high INR probably due to a combination of amiodarone and Flomax and less likely from the spironolactone. 5. See past medical history. PLAN: The patient is being admitted to a cardiac tele. We are going to do some gentle diuresis and follow up his creatinine. We will ask his Cardiology team to follow along. We have given him vitamin K 5 mg once and follow up his INR. We will hold his warfarin. We will ask him to wear a CPAP with sleep. We will follow up his hemoglobins. We will check a series of troponins and check his INR. The patient will need close followup of his INR as History And Physical [address] [place]. [address] NAME: SARAN HAWKINS : 49 STATUS : ADM IN [facility]#: [id number] AGE: 71 ADM/REG DATE : 03/16/17 MR#: [id number] REPORT SERV DATE: 03/16/17 DICTATED BY: AMANDA GANN DATE: 03/16/17 REPORT STATUS : Draft TRANSCRIBED BY: JUAN C DATE: 03/16/17 an outpatient and possible consideration for a transition to a novel oral anticoagulation medicine. RSG/JUAN C anda Gann M.D. / [id number] CC: Simone Weaver M.D. John Carter Hemphill, MD Lindsay C Crawford, M.D.
--- NOTE | ~2017-03-16 | EGD ---
EGD REPORT [facility] [address] [place]. [address] NAME: GALLO VALENTINE : [birth year] STATUS : ADM IN PAT#: [id number] AGE: 71 ADM/REG DATE : 03/16/17 MR#: [id number] REPORT SERV DATE: 03/19/17 DICTATED BY: RENE HANSEN DATE: 03/19/17 REPORT STATUS : Draft [facility] DATE: 03/19/17 Endoscopy Center Patient Name: Gallo Valentine Date of : 1945 Attending MD: RENE HANSEN MD Procedure Date No Time: 03/19/2017 Procedure: Upper GI endoscopy Indications: Recent gastrointestinal bleeding, Gastrointestinal bleeding of unknown origin Referring MD: ARPIT ALEXANDER MD Medicines: Monitored Anesthesia Care Complications: No immediate complications. Estimated blood loss: Minimal. Procedure: Pre-Anesthesia Assessment: - ASA Grade Assessment: III - A patient with severe systemic disease. After obtaining informed consent, the endoscope was passed under direct vision. Throughout the procedure, the patient's blood pressure, pulse, and oxygen saturations were monitored continuously. The GIF [id number] was introduced through the mouth, and advanced to the second part of duodenum. The upper GI endoscopy was accomplished without difficulty. The patient tolerated the procedure well. Findings: The examined esophagus was normal. Few non-bleeding cratered gastric ulcers with pigmented material were found in the gastric antrum. The largest lesion was 5 mm in largest dimension. Biopsies were taken with a cold forceps for Helicobacter pylori testing. Estimated blood loss was minimal. Localized mild inflammation characterized by congestion (edema) and erosions was found in the duodenal bulb. The cardia and gastric fundus were normal on retroflexion. Impression: - Gastric ulcers. Biopsied. - Duodenitis. - Exam otherwise normal Recommendation: - Perform a colonoscopy today. - Await pathology results. - Use Protonix (pantoprazole) 40 mg PO BID for 8 weeks. Procedure Code(s): --- Professional --- 08902, Esophagogastroduodenoscopy, flexible, transoral; EGD REPORT [facility] [address] [place] [address]. [address] NAME: GALLO VALENTINE : [birth year] STATUS : ADM IN [facility]#: [id number] AGE: 71 ADM/REG DATE : 03/16/17 MR#: [id number] REPORT SERV DATE: 03/19/17 DICTATED BY: RENE HANSEN DATE: 03/19/17 REPORT STATUS : Draft TRANSCRIBED BY: [employer] DATE: 03/19/17 with biopsy, single or multiple Diagnosis Code(s): --- Professional --- K25.9, Gastric ulcer, unspecified as acute or chronic, without hemorrhage or perforation K29.80, Duodenitis without bleeding K92.2, Gastrointestinal hemorrhage, unspecified CPT copyright 2013 [employer] [place] [employer]. All rights reserved. The codes documented in this report are preliminary and upon java tech review may be revised to meet current compliance requirements. Rene Hansen MD RENE HANSEN MD 03/19/2017 7:40 AM This report has been signed electronically. Number of Addenda: 0 Note Initiated On: 03/19/2017 7:15 AM Scope Withdrawal Time 0 hours 0 minutes 0 seconds [address] [place] [address]
--- NOTE | ~2017-03-16 | DS ---
Discharge Summary [facility] [address] [facility] [place]. [address] NAME: SARAN HAWKINS : [birth year] STATUS : DIS IN PAT#: [id number] AGE: 71 ADM/REG DATE : 03/16/17 MR#: [id number] REPORT SERV DATE: 03/24/17 DICTATED BY: SUSANNA ARECHIGA DATE: 03/20/17 REPORT STATUS : Draft TRANSCRIBED BY: MODL DATE: 03/20/17 ADMISSION DATE: 03/16/2017 DISCHARGE DATE: 03/20/2017 PRINCIPAL DIAGNOSES: 1. Gastrointestinal bleed due to gastric ulcer. 2. Acute blood loss anemia. 3. Iron-deficiency anemia. SECONDARY DIAGNOSES: 1. Acute on chronic diastolic congestive heart failure. Ejection fraction 45%. 2. Coumadin toxicity. 3. Chronic kidney disease. HISTORY OF PRESENT ILLNESS: Please see Dr. Gann's dictation, 03/16/2017. HOSPITAL COURSE: Admitted with GI bleed. INR was 10. The patient's anticoagulation was reversed. He received an EGD that revealed some shallow gastric ulcerations. Was also prepped for colonoscopy, had a difficult prep due to difficulty cleaning his colon, finally was done on 03/20/2017, still an incomplete preparation but no bleeding site was identified. It was felt he best stay off anticoagulant for another seven days. He was to take proton pump inhibitors b.i.d., resuming Coumadin in seven days and following up with Dr. Perez three days after that. Follow up with Dr. Tiago Olmos in one to two weeks. RISHABH/JUAN C Susanna Arechiga M.D. / [id number] CC: Simone Levy M.D.
--- NOTE | ~2017-03-16 | EGD ---
EGD REPORT [facility] [address] [place]. [address] NAME: GALLO VALENTINE : [birth year] STATUS : ADM IN PAT#: [id number] AGE: 71 ADM/REG DATE : 03/16/17 MR#: [id number] REPORT SERV DATE: 03/20/17 DICTATED BY: RENE HANSEN DATE: 03/20/17 REPORT STATUS : Draft [facility]ANSCRIBED BY: [facility] DATE: 03/20/17 Endoscopy Center Patient Name: Gallo Valentine Date of : 1945 Attending MD: RENE HANSEN MD Procedure Date No Time: 03/20/2017 Procedure: Colonoscopy Indications: Anemia Referring MD: ARPIT ALEXANDER MD Medicines: Monitored Anesthesia Care Complications: No immediate complications. Estimated blood loss: Minimal. Procedure: Pre-Anesthesia Assessment: - ASA Grade Assessment: III - A patient with severe systemic disease. After I obtained informed consent, the scope was passed under direct vision. Throughout the procedure, the patient's blood pressure, pulse, and oxygen saturations were monitored continuously. The CF [id number] was introduced through the anus and advanced to the ileocolonic anastomosis. The colonoscopy was technically difficult and complex due to inadequate bowel prep. The patient tolerated the procedure well. The quality of the bowel preparation was poor. Findings: The perianal and digital rectal examinations were normal. Pertinent negatives include no palpable rectal lesions. Extensive amounts of liquid stool was found in the rectum, in the sigmoid colon, in the descending colon and in the transverse colon, interfering with visualization. Lavage of the area was performed using copious amounts of sterile water, resulting in incomplete clearance with fair visualization. The proximal ileum contained a submucosal non-obstructing medium-sized mass that appeared to be a lipoma. In addition, its diameter measured ten mm. No bleeding was present. No stigmata of recent bleeding were seen. Biopsies were taken with a cold forceps for histology. Estimated blood loss was minimal. Multiple medium-mouthed diverticula were found in the sigmoid colon. The exam was otherwise without abnormality on direct and retroflexion views. Impression: - Preparation of the colon was poor. - Stool in the rectum, in the sigmoid colon, in the descending colon and in the transverse colon. EGD REPORT [address] [place]. 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 Biopsied. Biopsied. - Diverticulosis in the sigmoid colon. - The examination was otherwise normal on direct and retroflexion views. Recommendation: - Discharge patient to home (ambulatory). - Await pathology results. - Repeat colonoscopy in 6 months because the bowel preparation was poor. Procedure Code(s): --- Professional --- 47684, Colonoscopy, flexible, proximal to splenic flexure; with biopsy, single or multiple Diagnosis Code(s): --- Professional --- K57.30, Diverticulosis of large intestine without perforation or abscess without bleeding D49.0, Neoplasm of unspecified behavior of digestive system D64.9, Anemia, unspecified CPT copyright 2013 [place] [employer]. All rights reserved. The codes documented in this report are preliminary and upon citrix engineer review may be revised to meet current compliance requirements. Rene Hansen MD RENE HANSEN MD 03/20/2017 11:22 AM This report has been signed electronically. Number of Addenda: 0 Note Initiated On: 03/20/2017 10:34 AM Scope Withdrawal Time 0 hours 8 minutes 24 seconds [id number] [place] [address]
[2017-03-16 10:59] LABS: BASOPHILS 0.8 %; BASOPHILS ABSOLUTE 0.06 10/3/uL (0.0-0.16); EOSINOPHILS 1.9 %; EOSINOPHILS ABSOLUTE 0.14 10/3/uL (0.0-0.53); HEMATOCRIT 27.9 % (40.0-51.0); HEMOGLOBIN 8.6 g/dL (13.6-17.8); IMMATURE GRANULOCYTES 0.6 %; LYMPHOCYTES 14.3 %; LYMPHOCYTES ABSOLUTE 1.04 10/3/uL (0.67-4.30); MEAN CORPUSCULAR HEMOGLOB 25.1 pg (26.0-34.0); MEAN CORPUSCULAR VOLUME 81.6 fL (80-100); MEAN PLATELET VOLUME 8.8 fL (9.2-13.0); MONOCYTES 8.1 %; MONOCYTES ABSOLUTE 0.59 10/3/uL (0.21-1.20); NEUTROPHILS 74.3 %; NEUTROPHILS ABSOLUTE 5.39 10/3/uL (2.02-8.40); PLATELET COUNT 239 10/3/uL (150-400); RBC DISTRIBUTION WIDTH 15.3 % (12.0-16.0); RED CELL COUNT 3.42 10/6/uL (4.7-6.1); WHITE BLOOD CELLS 7.3 10/3/uL (4.5-10.5)
[2017-03-16 11:00] LABS: IMMATURE GRANULOCYTES ABSOLUTE 0.04 10/3/uL (0.0-0.11); MANUAL DIFF NO %; MEAN CORPUS HGB CONC 30.8 g/dL (32.0-36.0)
[2017-03-16 11:09] LABS: PARTIAL THROMBO TIME 76.7 SEC (22.5-37.2)
[2017-03-16 11:16] LABS: BUN (BLOOD UREA NITROGEN) 23 MG/DL (6-23); CALCIUM, SERUM 8.9 MG/DL (8.5-10.4); CHEST PAIN PROFILE TAT 0 Hrs 21 Mins; CHLORIDE, SERUM 113 MMOL/L (96-112); CO2 (CARBON DIOXIDE) 20 MMOL/L (24-34); CREATININE 1.92 MG/DL (0.70-1.30); GFR AFRICAN AMERICAN 40 ML/MIN (>=60); GFR NON AFRICAN AMERICAN 35 ML/MIN (>=60); GLUCOSE, SERUM 247 MG/DL (60-99); POTASSIUM, SERUM 4.6 MMOL/L (3.5-5.3); SODIUM, SERUM 141 MMOL/L (135-148); TROPONIN I 0.04 NG/ML (<0.05)
[2017-03-16 11:25] LABS: PROTIME (NOT ORD) 79.2 SEC (12.0-14.5)
[2017-03-16 11:33] LABS: BASOPHILS 1 %; BASOPHILS ABSOLUTE (CALC) 0.07 10/3/uL (0.0-0.16); EOSINOPHILS 1 %; EOSINOPHILS ABSOLUTE (CALC) 0.07 10/3/uL (0.0-0.53); ER DIFF TAT 0 Hrs 38 Mins; LYMPHOCYTES 13 %; LYMPHOCYTES ABSOLUTE (CALC) 0.95 10/3/uL (0.67-4.30); MONOCYTES 12 %; MONOCYTES ABSOLUTE (CALC) 0.88 10/3/uL (0.21-1.20); NEUTROPHILS ABSOLUTE (CALC) 5.33 10/3/uL (2.02-8.40); PLATELET ESTIMATE ADQ (ADEQUATE); SEGMENTED NEUTROPHIL (0) 73 %; TOTAL NUCLEATED CELLS 100
[2017-03-16 11:34] LABS: HYPOCHROMIA 1+ (3-10/OIF) (0-2/OIF)
[~2017-03-16 12:37] MED LIST changes: +ASAB PO; +CORDARONE PO; +COREG6 PO; +GLUCPH PO; +VIAGRA50 MG PO
[2017-03-16] MEDS ORDERED: FISH OIL1200 MG PO (12:57)
[2017-03-16] MEDS ORDERED: FOLIC ACID PO (12:57)
[2017-03-16] MEDS ORDERED: COUMADIN4 MG PO (12:57)
[2017-03-16] MEDS ORDERED: GLYCERIN SUPPOSITORY PR (12:58)
[2017-03-16] MEDS ORDERED: GLUCOTRO10 PO ×2 (12:58→12:59)
[2017-03-16] MEDS ORDERED: FERROUS SULF325 M1 PO (12:59)
[2017-03-16] MEDS ORDERED: COREG6 PO (12:59)
[2017-03-16] MEDS ORDERED: AMIT10 PO (12:59)
[2017-03-16] MEDS ORDERED: D.O.S.100 MG PO (13:00)
[2017-03-16] MEDS ORDERED: SPIRO25 PO (13:00)
[2017-03-16] MEDS ORDERED: NORV10 PO (13:00)
[2017-03-16] MEDS ORDERED: LIPITOR40 PO (13:00)
[2017-03-16] MEDS ORDERED: CORDARONE PO (13:00)
[2017-03-16] MEDS ORDERED: FLOMAX4 PO (13:01)
[2017-03-16] MEDS ORDERED: MIRALAX POWDER1 PKT PO (13:01)
[2017-03-16] MEDS ORDERED: ASAB PO (13:01)
[2017-03-16] MEDS ORDERED: MELATONIN5 M1 PO (13:01)
[2017-03-17 06:52] LABS: BASOPHILS 0.8 %; BASOPHILS ABSOLUTE 0.05 10/3/uL (0.0-0.16); EOSINOPHILS 2.2 %; EOSINOPHILS ABSOLUTE 0.13 10/3/uL (0.0-0.53); HEMOGLOBIN 7.4 g/dL (13.6-17.8); IMMATURE GRANULOCYTES 0.2 %; IMMATURE GRANULOCYTES ABSOLUTE 0.01 10/3/uL (0.0-0.11); LYMPHOCYTES 23.1 %; LYMPHOCYTES ABSOLUTE 1.39 10/3/uL (0.67-4.30); MEAN CORPUS HGB CONC 30.5 g/dL (32.0-36.0); MEAN CORPUSCULAR HEMOGLOB 24.7 pg (26.0-34.0); MEAN CORPUSCULAR VOLUME 81.3 fL (80-100); MEAN PLATELET VOLUME 8.5 fL (9.2-13.0); MONOCYTES 14.8 %; MONOCYTES ABSOLUTE 0.89 10/3/uL (0.21-1.20); NEUTROPHILS 58.9 %; NEUTROPHILS ABSOLUTE 3.55 10/3/uL (2.02-8.40); PLATELET COUNT 208 10/3/uL (150-400); RBC DISTRIBUTION WIDTH 15.5 % (12.0-16.0); RED CELL COUNT 2.99 10/6/uL (4.7-6.1)
[2017-03-17 06:54] LABS: INTERNATIONAL NORMAL RATI 4.8 UNITS (-)
[2017-03-17 06:55] LABS: PROTIME (NOT ORD) 44.7 SEC (12.0-14.5)
[2017-03-17 07:01] LABS: ALBUMIN 2.9 G/DL (3.5-5.0); BUN (BLOOD UREA NITROGEN) 25 MG/DL (6-23); CALCIUM, SERUM 8.2 MG/DL (8.5-10.4); CHLORIDE, SERUM 112 MMOL/L (96-112); CO2 (CARBON DIOXIDE) 20 MMOL/L (24-34); CREATININE 1.86 MG/DL (0.70-1.30); GFR AFRICAN AMERICAN 42 ML/MIN (>=60); GFR NON AFRICAN AMERICAN 36 ML/MIN (>=60); SODIUM, SERUM 143 MMOL/L (135-148)
[2017-03-17 07:03] LABS: GLUCOSE, SERUM 95 MG/DL (60-99)
[2017-03-17 07:04] LABS: HEMATOCRIT 24.3 % (40.0-51.0)
[2017-03-17 07:05] LABS: MANUAL DIFF NO %
[2017-03-17 14:01] LABS: PROCALCITONIN <0.05 ng/mL (<0.5)
[2017-03-17 14:20] LABS: FERRITIN 32 NG/ML (26-388); IRON BINDING CAPACITY 370 MCG/DL (250-450); IRON, SERUM 20 MCG/DL (35-150)
[2017-03-17 16:08] LABS: HEMOGLOBIN 8.3 g/dL (13.6-17.8)
[2017-03-17 16:14] LABS: INTERNATIONAL NORMAL RATI 3.1 UNITS (-)
[2017-03-17 16:17] LABS: PROTIME (NOT ORD) 31.3 SEC (12.0-14.5)
[2017-03-17 16:28] LABS: T PROTEIN (ELECT)(NOT OR 6.9 G/DL (6.0-8.5)
[2017-03-18 06:22] LABS: BASOPHILS 0.9 %; BASOPHILS ABSOLUTE 0.06 10/3/uL (0.0-0.16); EOSINOPHILS ABSOLUTE 0.19 10/3/uL (0.0-0.53); HEMATOCRIT 27.7 % (40.0-51.0); HEMOGLOBIN 8.7 g/dL (13.6-17.8); IMMATURE GRANULOCYTES 0.2 %; IMMATURE GRANULOCYTES ABSOLUTE 0.01 10/3/uL (0.0-0.11); LYMPHOCYTES 23.8 %; LYMPHOCYTES ABSOLUTE 1.53 10/3/uL (0.67-4.30); MANUAL DIFF NO %; MEAN CORPUS HGB CONC 31.4 g/dL (32.0-36.0); MEAN CORPUSCULAR HEMOGLOB 25.5 pg (26.0-34.0); MEAN CORPUSCULAR VOLUME 81.2 fL (80-100); MEAN PLATELET VOLUME 8.7 fL (9.2-13.0); MONOCYTES ABSOLUTE 0.77 10/3/uL (0.21-1.20); NEUTROPHILS 60.1 %; NEUTROPHILS ABSOLUTE 3.88 10/3/uL (2.02-8.40); PLATELET COUNT 202 10/3/uL (150-400); RBC DISTRIBUTION WIDTH 15.6 % (12.0-16.0); RED CELL COUNT 3.41 10/6/uL (4.7-6.1); WHITE BLOOD CELLS 6.4 10/3/uL (4.5-10.5)
[2017-03-18 06:27] LABS: INTERNATIONAL NORMAL RATI 2.7 UNITS (-); PROTIME (NOT ORD) 28.4 SEC (12.0-14.5)
[2017-03-18 06:35] LABS: CALCIUM, SERUM 8.5 MG/DL (8.5-10.4); CHLORIDE, SERUM 109 MMOL/L (96-112); CO2 (CARBON DIOXIDE) 20 MMOL/L (24-34); GFR AFRICAN AMERICAN 44 ML/MIN (>=60); GFR NON AFRICAN AMERICAN 38 ML/MIN (>=60); POTASSIUM, SERUM 4.5 MMOL/L (3.5-5.3); SODIUM, SERUM 138 MMOL/L (135-148)
[2017-03-18 06:37] LABS: BUN (BLOOD UREA NITROGEN) 30 MG/DL (6-23); GLUCOSE, SERUM 129 MG/DL (60-99)
[2017-03-18 12:19] LABS: A/G 1.42 RATIO (0.9-2.10); ALB RELATIVE % 58.6 % (60.0-89.0); ALBUMIN (ELECTRO) 4.04 GM/DL (3.2-5.5); ALPHA 1 RELAT % (NOT ORD) 4.3 % (1.0-4.0); ALPHA 2 (ELECTRO) 0.77 GM/DL (0.5-1.10); ALPHA 2 RELAT % 11.2 % (4.5-26.0); BETA GLOBULIN (SPE) 0.77 GM/DL (0.60-1.30); BETA RELATIVE % 11.2 % (9.0-22.0); GAMMA GLOBULIN (SPE) 1.01 G/DL (0.70-1.60); GAMMA RELAT % 14.7 % (6.0-22.0)
[2017-03-18 23:55] LABS: INTERNATIONAL NORMAL RATI 2.1 UNITS (-)
[2017-03-18 23:56] LABS: PROTIME (NOT ORD) 23.3 SEC (12.0-14.5)
[2017-03-19 05:48] LABS: BASOPHILS 0.4 %; BASOPHILS ABSOLUTE 0.03 10/3/uL (0.0-0.16); EOSINOPHILS 2.1 %; EOSINOPHILS ABSOLUTE 0.14 10/3/uL (0.0-0.53); HEMATOCRIT 29.8 % (40.0-51.0); HEMOGLOBIN 9.3 g/dL (13.6-17.8); IMMATURE GRANULOCYTES 0.4 %; IMMATURE GRANULOCYTES ABSOLUTE 0.03 10/3/uL (0.0-0.11); LYMPHOCYTES 17.8 %; MEAN CORPUS HGB CONC 31.2 g/dL (32.0-36.0); MEAN CORPUSCULAR HEMOGLOB 25.2 pg (26.0-34.0); MEAN CORPUSCULAR VOLUME 80.8 fL (80-100); MEAN PLATELET VOLUME 8.6 fL (9.2-13.0); MONOCYTES 12.2 %; MONOCYTES ABSOLUTE 0.82 10/3/uL (0.21-1.20); NEUTROPHILS 67.1 %; NEUTROPHILS ABSOLUTE 4.51 10/3/uL (2.02-8.40); PLATELET COUNT 200 10/3/uL (150-400); RBC DISTRIBUTION WIDTH 15.7 % (12.0-16.0); RED CELL COUNT 3.69 10/6/uL (4.7-6.1); WHITE BLOOD CELLS 6.7 10/3/uL (4.5-10.5)
[2017-03-19 05:57] LABS: INTERNATIONAL NORMAL RATI 1.9 UNITS (-); PROTIME (NOT ORD) 21.8 SEC (12.0-14.5)
[2017-03-19 06:00] LABS: MANUAL DIFF NO %
[2017-03-19 06:05] LABS: BUN (BLOOD UREA NITROGEN) 30 MG/DL (6-23); CALCIUM, SERUM 8.9 MG/DL (8.5-10.4); CHLORIDE, SERUM 105 MMOL/L (96-112); CO2 (CARBON DIOXIDE) 24 MMOL/L (24-34); CREATININE 1.77 MG/DL (0.70-1.30); GFR AFRICAN AMERICAN 44 ML/MIN (>=60); GFR NON AFRICAN AMERICAN 38 ML/MIN (>=60); POTASSIUM, SERUM 4.4 MMOL/L (3.5-5.3); SODIUM, SERUM 138 MMOL/L (135-148)
[2017-03-19 06:11] LABS: GLUCOSE, SERUM 161 MG/DL (60-99)
[2017-03-20 06:13] LABS: A/G RATIO 0.8 (0.7-1.9); ALBUMIN 2.9 G/DL (3.5-5.0); BUN (BLOOD UREA NITROGEN) 32 MG/DL (6-23); CALCIUM, SERUM 8.1 MG/DL (8.5-10.4); CHLORIDE, SERUM 106 MMOL/L (96-112); GFR AFRICAN AMERICAN 38 ML/MIN (>=60); GFR NON AFRICAN AMERICAN 33 ML/MIN (>=60); GLOBULIN 3.6 G/DL (2.5-4.1); GLUCOSE, SERUM 187 MG/DL (60-99); SGPT(ALT) 13 U/L (5-65); SODIUM, SERUM 136 MMOL/L (135-148); TOTAL BILIRUBIN 1.1 MG/DL (0-1.2); TOTAL PROTEIN 6.5 G/DL (6.0-8.5)
[2017-03-20 06:16] LABS: ALKALINE PHOSPHATASE 75 U/L (45-117); CO2 (CARBON DIOXIDE) 19 MMOL/L (24-34); SGOT(AST) 21 U/L (5-40)
[2017-03-20 06:55] LABS: HEMATOCRIT 27.2 % (40.0-51.0); HEMOGLOBIN 8.6 g/dL (13.6-17.8); MEAN CORPUS HGB CONC 31.6 g/dL (32.0-36.0); MEAN CORPUSCULAR HEMOGLOB 25.3 pg (26.0-34.0); NUCLEATED RED BLOOD CELLS 1.1 /100WBC (0-0); PLATELET COUNT 181 10/3/uL (150-400); RBC DISTRIBUTION WIDTH 16.3 % (12.0-16.0)
[2017-03-20 06:57] LABS: MANUAL DIFF YES %
[2017-03-20 07:28] LABS: BAND NEUTROPHILS 10 %; LYMPHOCYTES 25 %; MONOCYTES 11 %; MONOCYTES ABSOLUTE (CALC) 0.22 10/3/uL (0.21-1.20); NEUTROPHILS ABSOLUTE (CALC) 1.28 10/3/uL (2.02-8.40); PLATELET ESTIMATE ADQ (ADEQUATE); RBC MORPHOLOGY NORM (NORMAL); SEGMENTED NEUTROPHIL (0) 54 %; TOTAL NUCLEATED CELLS 100
[2017-03-20] MEDS ORDERED: PRILO PO (16:06)
[2017-03-20] MEDS ORDERED: PCET PO (16:19)
== END 2017-03-20 16:45 | disposition home or self-care (01) | DRG 377 ==
LOC: ER 12:37 → 6NO 13:13
PROVIDERS: Anesthesiology; Emergency Medicine; Hospitalist; Internal Medicine; Internal Medicine Gastroenterology
PROC: 30233N1 Transfusion of Nonautologous Red Blood Cells into Peripheral Vein, Percutaneous Approach (ICD-10-PCS; 2017-03-17)
PROC: 30233K1 Transfusion of Nonautologous Frozen Plasma into Peripheral Vein, Percutaneous Approach (ICD-10-PCS; 2017-03-18)
PROC: 0DJD8ZZ Inspection of Lower Intestinal Tract, Via Natural or Artificial Opening Endoscopic (ICD-10-PCS; principal; 2017-03-19 07:30)
PROC: 0DB68ZX Excision of Stomach, Via Natural or Artificial Opening Endoscopic, Diagnostic (ICD-10-PCS; 2017-03-19 07:30)
PROC: 0DBB8ZX Excision of Ileum, Via Natural or Artificial Opening Endoscopic, Diagnostic (ICD-10-PCS; 2017-03-20)
PROC: 3E1H88Z Irrigation of Lower GI using Irrigating Substance, Via Natural or Artificial Opening Endoscopic (ICD-10-PCS; 2017-03-20)
DX: K25.4 Chronic or unspecified gastric ulcer with hemorrhage (principal); I50.23 Acute on chronic systolic (congestive) heart failure; E11.22 Type 2 diabetes mellitus with diabetic chronic kidney disease; D68.32 Hemorrhagic disorder due to extrinsic circulating anticoagulants; N18.3 Chronic kidney disease, stage 3 (moderate); I48.1 Persistent atrial fibrillation; I48.91 Unspecified atrial fibrillation; I13.0 Hypertensive heart and chronic kidney disease with heart failure and stage 1 through stage 4 chronic kidney disease, or unspecified chronic kidney disease; D62 Acute posthemorrhagic anemia; D49.0 Neoplasm of unspecified behavior of digestive system; K59.00 Constipation, unspecified; N40.1 Benign prostatic hyperplasia with lower urinary tract symptoms; R39.12 Poor urinary stream; T45.515A Adverse effect of anticoagulants, initial encounter; I34.0 Nonrheumatic mitral (valve) insufficiency; I25.2 Old myocardial infarction; I69.398 Other sequelae of cerebral infarction; R26.81 Unsteadiness on feet; N52.9 Male erectile dysfunction, unspecified; F10.21 Alcohol dependence, in remission; I73.9 Peripheral vascular disease, unspecified; K29.80 Duodenitis without bleeding; K57.30 Diverticulosis of large intestine without perforation or abscess without bleeding; Z80.7 Family history of other malignant neoplasms of lymphoid, hematopoietic and related tissues; Z81.1 Family history of alcohol abuse and dependence; Z87.891 Personal history of nicotine dependence; Z90.49 Acquired absence of other specified parts of digestive tract; Z87.11 Personal history of peptic ulcer disease; Z87.442 Personal history of urinary calculi; Z95.0 Presence of cardiac pacemaker; Z95.4 Presence of other heart-valve replacement; Z95.5 Presence of coronary angioplasty implant and graft
CPT/HCPCS: 36415; 71020; 71100-RT; 80048; 80053; 80069; 82272; 82607; 82728; 82962; 83540; 83550; 83615; 83735; 83880; 84145; 84155; 84165; 84484; 85014; 85018; 85025; 85610; 85730; 86140; 86850; 86900; 86901; 86920; 88305; 93005; 94640; 99285; A9270-GY; C8929; J2405; J2916; P9016; P9059; Q9957

== ENCOUNTER 2017-03-22 20:16 | Inpatient (IN) | payer OTHER ==
--- NOTE | ~2017-03-22 | DS ---
Discharge Summary [facility] [address] [place]. [address] NAME: SARAN HAWKINS : [birth year] STATUS : DIS IN PAT#: [id number] AGE: 71 ADM/REG DATE : 03/22/17 MR#: [id number] REPORT SERV DATE: 03/28/17 DICTATED BY: SHANT HAN DATE: 03/27/17 REPORT STATUS : Draft TRANSCRIBED BY: MODL DATE: 03/27/17 ADMISSION DATE: 03/22/2017 DISCHARGE DATE: 03/27/2017 DISCHARGE DIAGNOSES: 1. Ileus, resolved. 2. Acute kidney injury, improved. 3. Chronic kidney disease, 4. 4. Recent hospitalization, 03/16/2017 to 03/20/2017 with gastrointestinal bleeding, on Coumadin, with EGD 03/19/2017 demonstrating gastric ulcers and duodenitis. Colonoscopy on 03/19/2017 demonstrating unsatisfactory colon preparation. Colonoscopy on 03/20/2017 demonstrating poor preparation: With diverticulosis and possible ileal mass with biopsy demonstrating normal mucosa. Followup colonoscopy within six months recommended. 5. Severe mitral regurgitation, persistent atrial fibrillation, status post mitral valve replacement with [address] [employer] Epic Biocor mitral valve, extensive right and left atrial CryoMaze and left atrial appendage clip, 02/11/2017. 6. Atrioventricular block, complete; sick sinus syndrome and atrial fibrillation, status post LOADING [employer]ACH[employer] pacemaker implantation, 02/16/2017. 7. Coronary artery disease, status post myocardial infarction, treated with PCI in 2013. 8. Type 2 diabetes. 9. Chronic systolic congestive heart failure. 10.Voiding dysfunction. 11.Sleep apnea, on CPAP. 12.Hypogonadism. 13.Previous stroke in 2014. 14.Gait disorder, post stroke. 15.Peripheral arterial disease, status post left carotid endarterectomy. 16.Complicated diverticular disease with previous surgery. 17.Iron deficiency, treated this month with Nulecit. 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 Outpatient immunofixation needed. 19.Cholelithiasis, asymptomatic. 20.Hepatic cyst. 21.Renal cyst. 22.Staghorn calculus, left kidney. OPERATION AND PROCEDURES: None. PRESENT ILLNESS: This is a 71-year-old white male, who was triaged in the emergency room on 03/22/2017 at 2016 hours complaining of abdominal pain. Admission vital signs, blood pressure 104/67, temperature 97.9, pulse 71, respirations 20, O2 saturation 96%. After evaluation in the emergency room, he was referred to the Hospitalist Service for admission. He was seen by Dr. Gilberto Cochran and admitted as described on admission history and physical examination. Discharge Summary [address] [address] NAME: SARAN HAWKINS : [birth year] STATUS : DIS IN PAT#: [id number] AGE: 71 ADM/REG DATE : 03/22/17 MR#: [id number] REPORT SERV DATE: 03/28/17 DICTATED BY: SHANT HAN DATE: 03/27/17 REPORT STATUS : Draft TRANSCRIBED BY: MODL DATE: 03/27/17 Additional history included an admission here 03/16/2017 to 03/20/2017 with gastrointestinal bleeding with endoscopic findings as noted above. Notably, he is on chronic Coumadin, and his INR was 10 on presentation. He was discharged by Dr. Leblanc with outpatient followup to see Cardiology and primary care. On 03/22/2017, he developed nausea, vomiting, and increased abdominal pain and distention. He came back to the emergency room for evaluation and was admitted. ADDITIONAL HISTORY: Per Dr. Cochran. PHYSICAL EXAMINATION: Per Dr. Cochran. ADMISSION LABORATORY: Per Dr. Cochran. HOSPITAL COURSE: He was admitted by Dr. Cochran with: 1. Ileus. 2. Acute kidney injury. 3. All in the setting of the above-mentioned comorbidities. He was admitted to [address] [place] [address]. IV fluids were initiated. An NG tube was placed. Surgical consultation was obtained. GI consultation was obtained. His hospitalist care was by Dr. Donald Stanley on 03/23/2017 and the undersigned on 03/24/2017, 03/25/2017, 03/26/2017, and 03/27/2017. He was seen by Dr. Jeff Sanford, whose impression was probable ileus. He recommended continued NG suction with serial x-rays. He was seen by GI, Chinedu George and Dr. Welch, who concurred with the above-mentioned treatment plan. On 03/24/2017, he had minimal flatus. He was still distended. Dr. Sanford recommended a Gastrografin small bowel follow-through. This was done and reported as findings most suggestive of an ileus with distended loops of small bowel. There was no appreciable delay in the colon being reached. Colon is reached in 2 to 2-1/2 hours time point and the patient experienced a large bowel movement during the exam. Dr. Sanford suggested initiating a liquid diet, followup x-rays, and diet advancement as tolerated. A repeat KUB on 03/25/2017 showed decrease in number of distended small bowel loops with residual prominent loops of small bowel measuring 6.25 cm in diameter. On 03/26/2017, a repeat film showed continued and mildly worsened diffuse gas distention in abdomen involving both small bowel and colon to the level at least the splenic flexure with gas fluid levels. Findings were suggestive of a severe ileus or distal colonic obstruction. At that time, the patient was tolerating liquids. Given these radiographic findings, Dr. Taya Teran [address] [place]. [address] NAME: SARAN HAWKINS : [birth year] STATUS : DIS IN PAT#: [id number] AGE: 71 ADM/REG DATE : 03/22/17 MR#: [id number] REPORT SERV DATE: 03/28/17 DICTATED BY: SHANT HAN DATE: 03/27/17 REPORT STATUS : Draft TRANSCRIBED BY: JUAN C DATE: 03/27/17 Juvenal suggested a water-soluble contrast enema. This was done on the 03/26/2017. No obstruction was seen. The patient's diet was advanced. He tolerated this well, and on 03/27/2017, Dr. Sanford thought that from a surgical standpoint, he could be discharged to home with outpatient GI followup. During the course of the patient's hospitalization, he did not have recurrent gastrointestinal bleeding. His hemoglobin was 11 on admission and with hydration fell to 9.8 at discharge. He did have acute kidney injury on presentation with creatinine on 03/20/2017 being 2 and on admission 03/23/2017 of 2.87. With rehydration, his creatinine was 2.22 at discharge. With resolution of his ileus and resumption of his home medications, he developed some orthostatic hypotension. This resolved at the time of discharge with medication adjustment and crystalloid volume resuscitation as described. He has been off Coumadin. His INR has remained elevated though he has been without solid food intake for several days until the day of the discharge. On 03/27/2017, he felt "normal." He was not weak or dyspneic. He was not dizzy. He was having no pain complaints. He was having liquid stool. He desperately wanted to be discharged. At this point of his hospitalization, it was felt that he had achieved a level of improvement and stability, where he could be safely discharged to home, to be seen by Dr. Olmos next week. He also has followup to see Dr. Mariela Payton, Dr. Perez, and the [facility]. He will continue his home diet. I suggested that he eat six small feedings per day at this time. He was asked not to return to any Y exercise activity until office followup with his physicians. DISCHARGE MEDICATIONS: Lipitor 40 mg at bedtime, Cordarone 200 mg daily, Coreg 6.25 mg twice daily, B12 a 1000 mcg daily, fish oil 1200 mg daily, melatonin 10 mg at bedtime, Prilosec 20 mg twice daily, Aldactone 25 mg daily, Flomax 0.8 mg daily, Glucotrol 10 mg daily, saline nasal spray as needed, MiraLAX and docusate as needed, folic acid 1 mg daily. He was asked not to resume Coumadin or aspirin until outpatient followup next week. He was also asked not to take Norvasc or Elavil. He will also require GI followup as described for repeat colonoscopy and consideration of other small bowel evaluation as his CT scan done on admission, read by Dr. Earl, it was thought to show a loop of thickened small bowel. Discharge time greater than 30 minutes. Discharge Summary [address] [address] NAME: SARAN HAWKINS : [birth year] STATUS : DIS IN PAT#: [id number] AGE: 71 ADM/REG DATE : 03/22/17 MR#: [id number] REPORT SERV DATE: 03/28/17 DICTATED BY: SHANT HAN DATE: 03/27/17 REPORT STATUS : Draft TRANSCRIBED BY: JUAN C DATE: 03/27/17 DD/JUAN C Shant Han M.D. / [id number] CC: Shant Han M.D. Tiago Olmos M.D.
--- NOTE | ~2017-03-22 | CN ---
Consultation Report [facility] [address] [place]. [address] NAME: SARAN HAWKINS : [birth year] STATUS : ADM Sandra PAT#: [id number] AGE: 71 ADM/REG DATE : 03/22/17 MR#: [id number] REPORT SERV DATE: 03/23/17 DICTATED BY: MAYELA MARIN DATE: 03/23/17 REPORT STATUS : Draft TRANSCRIBED BY: MODL DATE: 03/23/17 CONSULTATION DATE OF CONSULTATION: 03/23/2017 CHIEF COMPLAINT: Abdominal distention. PRESENT ILLNESS: This is a 71-year-old gentleman, who has had a mitral valve replacement five weeks ago and subsequent pacemaker. Has not had really good bowel movement since that time. Had colonoscopy upper and lower, and Thursday of last week. Presents again with abdominal distention and abdominal pain. He states now that he is passing some flatus. PAST HISTORY: He had previous colon resection and then colostomy reversal in the distant past. He is diabetic and has not had this controlled very well. REVIEW OF SYSTEMS: Prior to this, he had been able to ambulate without difficulty. PHYSICAL EXAMINATION: GENERAL: Reveals to be alert, no acute distress. HEART: Had a regular rhythm. LUNGS: Clear. ABDOMEN: Distended, soft. No rebound tenderness was noted. CT scan revealed dilated small bowel. Questionable swirl in the right lower quadrant. Colon was decompressed. IMPRESSION: Probable ileus. PLAN: NG suction for serial x-rays mobilize, appreciate being able to see this nice gentleman. CA/JUAN C Mayela Marin M.D. / [id number] CC: Simone Triplett M.D.
--- NOTE | ~2017-03-22 | CN ---
Consultation Report [facility] [address] [place]. [address] NAME: SARAN VALENTINE : [birth year] STATUS : ADM Sandra PAT#: [id number] AGE: 71 ADM/REG DATE : 03/22/17 MR#: [id number] REPORT SERV DATE: 03/23/17 DICTATED BY: CLIFF ROCHE DATE: 03/23/17 REPORT STATUS : Draft TRANSCRIBED BY: MODL DATE: 03/23/17 GI CONSULTATION DATE OF CONSULTATION: 03/23/2017 REASON FOR CONSULTATION: Evaluation and management of ileus versus partial small-bowel obstruction. HISTORY OF PRESENT ILLNESS: Mr. Valentine is a 71-year-old male patient, who has been seen by Dr. Ailyn Lord in the past outpatient setting mobley, who was just recently discharged on 03/20/2017. He was seen by Dr. Welch during that admission for anemia and occult GI blood loss. He did undergo EGD as well as colonoscopy with Dr. Welch. He had on 03/19 EGD, which showed gastric ulcers which were biopsied, duodenitis, and otherwise normal exam. Biopsies from that were within normal limits with no H pylori being found. On 03/19, he attempted a colonoscopy, but the preparation of the colonoscopy was unsatisfactory. He had stool in the rectum, the rectosigmoid colon, and in the sigmoid. He was returned to the hospital caicedo, and he underwent additional bowel prep. Repeat colonoscopy was attempted on 03/20/2017 again with a poor prep. Stool in the rectum, sigmoid colon, descending colon, and transverse colon. He had a likely benign tumor in the proximal ileum, which was biopsied. He had findings of diverticulosis in the sigmoid colon. The exam was otherwise normal on direct views. His pathology from the proximal ileum is still in the pending status. He states that he did well following his colonoscopy up until Thursday morning when he began to experience nausea, vomiting, and abdominal distention. He stated he had the feeling of his abdomen bloating up, a tightness sensation, as well as he developed hiccups. Secondary to these complaints, he came in to [facility] for further care. He had a CT scan without contrast, showing dilated stricture in the gallbladder fossa with gallstones; however, the patient has history of "cholecystectomy" as well as findings of a high-grade small-bowel obstruction secondary to a loop of thickened abnormal bowel. Differential diagnosis per radiologist includes lymphoma, adenocarcinoma, or Crohn's disease. Currently, the patient has had an NG tube placed. He has had some positive results from that, as well as at this point in time, he is having an uncontrollable diarrhea, which he states just started within the last 30 minutes. His abdominal distention persists, but he states has somewhat improved. I have discussed with him we will continue NG tube decompression, follow him with serial imaging as well as Surgery has been consulted and seen him this morning if any surgical intervention is deemed necessary. PAST MEDICAL HISTORY: Positive for anemia; Hemoccult-positive stools; coronary artery disease; gastric ulcer; mitral valve replacement in 2017; CHF; paroxysmal atrial fibrillation, status post maze procedure; type 2 diabetes; erectile dysfunction; hypertension; prior stroke; sleep apnea; CKD 3; kidney stones; peripheral arterial disease; peptic ulcer disease; diverticulitis with perforation; BPH. FAMILY HISTORY: Noncontributory from a GI standpoint. Consultation Report [address] [address] NAME: SARAN VALENTINE : [birth year] STATUS : ADM Sandra PAT#: [id number] AGE: 71 ADM/REG DATE : 03/22/17 MR#: [id number] REPORT SERV DATE: 03/23/17 DICTATED BY: CLIFF ROCHE DATE: 03/23/17 REPORT STATUS : Draft TRANSCRIBED BY: JUAN C DATE: 03/23/17 SOCIAL HISTORY: Past tobacco. Past alcohol. No illicits. Still lives independently with family. ALLERGIES: NOTHING. HOME MEDICATIONS: Cordarone, Elavil, Norvasc, Lipitor, Coreg, vitamin B12, ferrous sulfate, Glucotrol, fish oil, Aldactone, Flomax, and saline nasal spray. REVIEW OF SYSTEMS: A 10-point review of systems has been obtained with pertinent positives being addressed in the history of present illness. PERTINENT LABORATORY DATA: Sodium 137, potassium 3.9, BUN is 60, creatinine 2.87. White count 5.2, hemoglobin 11, hematocrit 34.9, platelets are 236. Total bilirubin 1.3, alkaline phosphatase 80, ALT 14, AST 10. PHYSICAL EXAMINATION: VITAL SIGNS: Temperature is 97.9, pulse is 71, respirations 20, blood pressure 104/67. NEURO: Reveals an alert male, sitting up on the bedside commode. He has no focal deficits. GENERAL: Cooperative, in no apparent distress. He is awake, alert, and oriented x3. HEAD, EARS, EYES, NOSE, AND THROAT: Anicteric. Pupils equal, round, reactive to light and accommodation. Normocephalic and atraumatic. NECK: No JVD. No palpable nodes. LUNGS: Decreased throughout with normal respiratory effort exhibited. CARDIOVASCULAR SYSTEM: Regular rate and rhythm. ABDOMEN: Distended and tympanic, mildly tender. NG tube to low intermittent wall suction. EXTREMITIES: No edema. Normal distal pulses. SKIN: Warm, dry, and intact. ASSESSMENT: 1. Ileus versus bowel obstruction. 2. Acute kidney injury. 3. Recent EGD and colonoscopy with gastric ulcer and a benign-appearing proximal ileum tumor, pathology pending. 4. Abdominal pain and distention secondary to ileus versus bowel obstruction. 5. History of mitral valve tissue replacement. 6. History of atrial fibrillation. PLAN: 1. NG tube decompression. 2. Serial imaging. 3. We will check a sed rate, CRP level as well as a CEA level. 4. We will follow. Other recommendations pending clinical course. Consultation Report [place] [id number] [facility] [place]. [address] NAME: SARAN VALENTINE : [birth year] STATUS : ADM Sandra PAT#: [id number] AGE: 71 ADM/REG DATE : 03/22/17 MR#: [id number] REPORT SERV DATE: 03/23/17 DICTATED BY: CLIFF ROCHE DATE: 03/23/17 REPORT STATUS : Draft TRANSCRIBED BY: JUAN C DATE: 03/23/17 BRITTANY/JUAN C TAMMIE Mendez / [id number] CC: Simone Triplett M.D.
--- NOTE | ~2017-03-22 | HP ---
History And Physical [address] [place]. [address] NAME: SARAN HAWKINS : 49 STATUS : REG ER PAT#: [id number] AGE: 71 ADM/REG DATE : 03/22/17 MR#: [id number] REPORT SERV DATE: 03/23/17 DICTATED BY: TRAY PRINCE DATE: 03/23/17 REPORT STATUS : Draft TRANSCRIBED BY: MODL DATE: 03/23/17 DATE OF ADMISSION: 03/22/2017 CHIEF COMPLAINT: A 71-year-old male presenting with increasing abdominal pain and distention. HISTORY OF PRESENT ILLNESS: The patient's history was obtained through careful interview with the patient, coupled with review of [facility] medical records. The patient had just recently undergone a colonoscopy on 03/20/2017 and a repeat on 03/21/[address] Welch, had difficulty with his bowel prep, and on the first day of having a colonoscopy was filled with too much stool and had to have a repeat the next day, he seemed to recover well from this colonoscopy though. But then on 03/22/2017 at noon, he began to develop nausea, vomiting, increasing abdominal distention and pain. He describes diffuse abdominal discomfort, nonfocal, tightness quality, 7/10 severity. He also has had severe hiccups. He describes a slight phlegm in his throat with slight shortness of breath characterized by dyspnea on exertion. No fevers or chills. No lightheadedness. REVIEW OF SYSTEMS: Otherwise, a 14-point review of systems was obtained and was negative. PAST MEDICAL HISTORY: 1. Diabetes. Hemoglobin A1c of 7.0 in 02/2017. 2. Coronary artery disease, status post stent placement in 2013. 3. Congestive heart failure. 4. Stroke. 5. Pacemaker. 6. Peptic ulcer disease. 7. Alcoholism, quit drinking. 8. Diverticulitis, status post surgical resection. 9. Atrial fibrillation. 10.Hypertension. 11.Obstructive sleep apnea, discontinued CPAP recently. 12.Nephrolithiasis, seen by Dr. Gonzales. 13.Mitral valve replacement, apparently with a tissue valve. 14.Maze procedure. 15.Benign prostatic hypertrophy with erectile dysfunction. 16.Peripheral arterial disease. 17.Chronic kidney disease, stage III. Baseline creatinine of 1.7 to 1.9. History And Physical [address] [place]. [address] NAME: SARAN HAWKINS : 49 STATUS : REG ER PAT#: [id number] AGE: 71 ADM/REG DATE : 03/22/17 MR#: [id number] REPORT SERV DATE: 03/23/17 DICTATED BY: TRAY PRINCE DATE: 03/23/17 REPORT STATUS : Draft TRANSCRIBED BY: MODGurinder DATE: 03/23/17 PAST SURGICAL HISTORY: 1. Pacemaker. 2. Multiple bowel surgeries including diverticulitis perforation surgery. 3. Left carotid endarterectomy. 4. Cholecystectomy. 5. Appendectomy. 6. Tissue mitral valve replacement in 2017. 7. Maze procedure. 8. Right knee surgery. ALLERGIES: NO KNOWN DRUG ALLERGIES. SOCIAL HISTORY: Quit smoking. Quit alcohol. He has worked as a roll trucker and on sales. He is . Lives alone. Has no children. Ambulates with a cane. FAMILY HISTORY: Father with heart disease. Mother with lymphoma. He is an only child with a strong family history of alcoholism. CURRENT MEDICATIONS: Include amiodarone 400 mg p.o. b.i.d., Elavil 10 mg p.o. at bedtime, Norvasc 10 mg p.o. daily, Lipitor 40 mg p.o. daily, Coreg 6.25 mg p.o. b.i.d., vitamin B12, iron supplement twice a day, glipizide 15 mg p.o. b.i.d., fish oil p.o. daily, Aldactone 12.5 mg p.o. daily, Flomax 0.8 mg p.o. daily, nasal spray. PHYSICAL EXAMINATION: VITAL SIGNS: Temperature 97.9, pulse 71, blood pressure 104/67, respiratory rate 20, and O2 saturation 96% on room air. GENERAL: A pleasant, cooperative male, but he is in distress from abdominal pain and vomiting. HEENT: Pupils equal, round, and reactive to light. No conjunctival pallor. No scleral icterus. Nares are patent. Oropharynx is clear of obstruction. Very dry mucous membranes. NECK: Trachea midline. No thyromegaly. LYMPH: No cervical lymphadenopathy. No supraclavicular lymphadenopathy. No inguinal lymphadenopathy. RESPIRATORY: Clear to auscultation at bases. No wheezes, rales, or rhonchi. Normal respiratory effort. CARDIOVASCULAR: Regular rate and rhythm. No murmurs, rubs, or gallops. No extremity edema is appreciated. ABDOMEN: Quite distended by examination. Significant tympanic resonance percussed throughout with a hollow drum like percussion. Diminished bowel tones. No hepatosplenomegaly. DERMATOLOGICAL: Warm and dry extremities. No pallor. No cyanosis. PSYCHIATRIC: Normal affect. Good mood. Alert and oriented x3. LABORATORY DATA: White blood cell count 5.2, hemoglobin 11, hematocrit 34, and platelets 236. Sodium 137, potassium 3.9, chloride 97, bicarb 30, BUN 16, creatinine 2.87, glucose 237. Urinalysis shows no evidence of infection, 22 hyaline casts, lactic acid 1.1. Brain History And Physical [address] [address] NAME: SARAN HAWKINS : 49 STATUS : REG ER PAT#: [id number] AGE: 71 ADM/REG DATE : 03/22/17 MR#: [id number] REPORT SERV DATE: 03/23/17 DICTATED BY: TRAY PRINCE DATE: 03/23/17 REPORT STATUS : Draft TRANSCRIBED BY: MODGurinder DATE: 03/23/17 natriuretic peptide 384. Urinalysis negative for infection. STUDIES: 1. Chest x-ray by my own evaluation shows no acute cardiopulmonary process. 2. CT scan of the abdomen shows ileus, distended gallbladder. ASSESSMENT AND PLAN: 1. Ileus. Obtain a surgery consult with Dr. Sanford. Obtain a GI consult with Dr. Welch. Place an NG tube to intermittent suction. Place on IV fluids. 2. Acute kidney injury. Place on IV fluids. 3. Diabetes. Hemoglobin A1c of 7.0, place on sliding scale insulin. 4. Atrial fibrillation. Holding anticoagulation secondary to bleeding. 5. Tissue mitral valve replacement. KPL/MODL Tray Prince M.D. / [id number] CC: Simone Ricks MD Coleman Arnold, M.D. Mariela Payton M.D.
[~2017-03-22 20:16] MED LIST changes: +COUMADIN4 MG PO; +D.O.S.100 MG PO; +FERROUS SULF325 M1 PO; +FISH OIL1200 MG PO; +FOLIC ACID PO; +GLYCERIN SUPPOSITORY PR; +LIPITOR40 PO; +MELATONIN5 M1 PO; +MIRALAX POWDER1 PKT PO; +PCET PO; +PRILO PO; +SPIRO25 PO
[2017-03-23 03:13] LABS: BASOPHILS 0.4 %; BASOPHILS ABSOLUTE 0.02 10/3/uL (0.0-0.16); EOSINOPHILS 0.2 %; EOSINOPHILS ABSOLUTE 0.01 10/3/uL (0.0-0.53); IMMATURE GRANULOCYTES ABSOLUTE 0.05 10/3/uL (0.0-0.11); LYMPHOCYTES 21.2 %; LYMPHOCYTES ABSOLUTE 1.11 10/3/uL (0.67-4.30); MEAN CORPUS HGB CONC 31.5 g/dL (32.0-36.0); MEAN CORPUSCULAR HEMOGLOB 25.7 pg (26.0-34.0); MEAN CORPUSCULAR VOLUME 81.5 fL (80-100); MEAN PLATELET VOLUME 9.3 fL (9.2-13.0); MONOCYTES 21.6 %; MONOCYTES ABSOLUTE 1.13 10/3/uL (0.21-1.20); NEUTROPHILS 55.6 %; NEUTROPHILS ABSOLUTE 2.92 10/3/uL (2.02-8.40); RBC DISTRIBUTION WIDTH 17.4 % (12.0-16.0)
[2017-03-23 03:14] LABS: ER CBC TAT 0 Hrs 16 Mins; HEMATOCRIT 34.9 % (40.0-51.0); PLATELET COUNT 236 10/3/uL (150-400); RED CELL COUNT 4.28 10/6/uL (4.7-6.1); WHITE BLOOD CELLS 5.2 10/3/uL (4.5-10.5)
[2017-03-23 03:15] LABS: MANUAL DIFF NO %
[2017-03-23 03:24] LABS: ASCORBIC ACID (UR NOT ORDER) NEG (NEG); BILIRUBIN, URINE NEGATIVE (NEG); ER URINALYSIS TAT 0 Hrs 00 Mins; KETONE, URINE TRACE MG/DL (NEG); LEUKOCYTE ESTERASE(NOT OR NEG (NEG); NITRITE (URINE) NEG (NEG); WBC (NOT ORDERED) (RFLEX) 1 (0-5)
[2017-03-23 03:30] LABS: TROPONIN I <0.02 NG/ML (<0.05)
[2017-03-23 03:35] LABS: A/G RATIO 0.9 (0.7-1.9); ALKALINE PHOSPHATASE 80 U/L (45-117); CHLORIDE, SERUM 97 MMOL/L (96-112); GLOBULIN 4.2 G/DL (2.5-4.1); SGOT(AST) 10 U/L (5-40); SGPT(ALT) 14 U/L (5-65); SODIUM, SERUM 137 MMOL/L (135-148); TOTAL BILIRUBIN 1.3 MG/DL (0-1.2); TOTAL PROTEIN 7.8 G/DL (6.0-8.5)
[2017-03-23 03:40] LABS: ALBUMIN 3.6 G/DL (3.5-5.0); BUN (BLOOD UREA NITROGEN) 60 MG/DL (6-23); CO2 (CARBON DIOXIDE) 30 MMOL/L (24-34); CREATININE 2.87 MG/DL (0.70-1.30); GFR AFRICAN AMERICAN 25 ML/MIN (>=60); GFR NON AFRICAN AMERICAN 21 ML/MIN (>=60); GLUCOSE, SERUM 37 MG/DL (60-99); POTASSIUM, SERUM 3.9 MMOL/L (3.5-5.3)
[2017-03-23 03:43] LABS: BAND NEUTROPHILS 7 %; ER DIFF TAT 0 Hrs 45 Mins; LYMPHOCYTES 25 %; MONOCYTES 20 %; MONOCYTES ABSOLUTE (CALC) 1.04 10/3/uL (0.21-1.20); NEUTROPHILS ABSOLUTE (CALC) 2.86 10/3/uL (2.02-8.40); SEGMENTED NEUTROPHIL (0) 48 %; TOTAL NUCLEATED CELLS 100
[2017-03-23 03:44] LABS: PLATELET ESTIMATE ADQ (ADEQUATE); RBC MORPHOLOGY NORM (NORMAL)
[2017-03-23] MEDS ORDERED: COREG6 PO (04:00)
[2017-03-23] MEDS ORDERED: CORDARONE PO (04:00)
[2017-03-23] MEDS ORDERED: NORV10 PO (04:00)
[2017-03-23] MEDS ORDERED: FLOMAX4 PO (04:01)
[2017-03-23] MEDS ORDERED: CYANO1000T PO (04:01)
[2017-03-23] MEDS ORDERED: FISH OIL1200 MG PO (04:02)
[2017-03-23] MEDS ORDERED: SPIRO25 PO (04:03)
[2017-03-23] MEDS ORDERED: GLUCOTRO10 PO (04:03)
[2017-03-23] MEDS ORDERED: LIPITOR40 PO (04:04)
[2017-03-23] MEDS ORDERED: FERROUS SULF325 M1 PO ×2 (04:05→14:24)
[2017-03-23] MEDS ORDERED: AMIT10 PO (04:05)
[2017-03-23] MEDS ORDERED: SALINE NASAL SPRAY NAS (04:08)
[2017-03-23] MEDS ORDERED: *UNABLE3 (04:15)
[2017-03-23 10:34] LABS: C-REACTIVE PROTEIN 74.8 MG/L (<8.0); CEA 1.9 NG/ML
[2017-03-23 12:39] LABS: HEMOGLOBIN 10.4 g/dL (13.6-17.8); MEAN CORPUS HGB CONC 32.5 g/dL (32.0-36.0); MEAN CORPUSCULAR HEMOGLOB 26.3 pg (26.0-34.0); MEAN CORPUSCULAR VOLUME 80.8 fL (80-100); PLATELET COUNT 210 10/3/uL (150-400); RBC DISTRIBUTION WIDTH 17.4 % (12.0-16.0); RED CELL COUNT 3.96 10/6/uL (4.7-6.1); WHITE BLOOD CELLS 6.1 10/3/uL (4.5-10.5)
[2017-03-23 12:40] LABS: MANUAL DIFF YES %
[2017-03-23 12:49] LABS: INTERNATIONAL NORMAL RATI 2.3 UNITS (-); PARTIAL THROMBO TIME 46.9 SEC (22.5-37.2)
[2017-03-23 12:51] LABS: PROTIME (NOT ORD) 25.3 SEC (12.0-14.5)
[2017-03-23 12:59] LABS: ANISOCYTOSIS 1+ (5-10/OIF) (0-5/OIF); BAND NEUTROPHILS 3 %; LYMPHOCYTES 28 %; LYMPHOCYTES ABSOLUTE (CALC) 1.71 10/3/uL (0.67-4.30); MONOCYTES 17 %; MONOCYTES ABSOLUTE (CALC) 1.04 10/3/uL (0.21-1.20); NEUTROPHILS ABSOLUTE (CALC) 3.36 10/3/uL (2.02-8.40); PLATELET ESTIMATE ADQ (ADEQUATE); SEGMENTED NEUTROPHIL (0) 52 %; TOTAL NUCLEATED CELLS 100
[2017-03-23 13:14] LABS: A/G RATIO 0.9 (0.7-1.9); ALBUMIN 3.1 G/DL (3.5-5.0); ALKALINE PHOSPHATASE 68 U/L (45-117); BUN (BLOOD UREA NITROGEN) 58 MG/DL (6-23); CALCIUM, SERUM 8.6 MG/DL (8.5-10.4); CHLORIDE, SERUM 102 MMOL/L (96-112); CO2 (CARBON DIOXIDE) 30 MMOL/L (24-34); CREATININE 2.75 MG/DL (0.70-1.30); GFR AFRICAN AMERICAN 26 ML/MIN (>=60); GFR NON AFRICAN AMERICAN 23 ML/MIN (>=60); GLOBULIN 3.6 G/DL (2.5-4.1); GLUCOSE, SERUM 51 MG/DL (60-99); POTASSIUM, SERUM 3.4 MMOL/L (3.5-5.3); SGOT(AST) 11 U/L (5-40); SGPT(ALT) 13 U/L (5-65); SODIUM, SERUM 138 MMOL/L (135-148); TOTAL PROTEIN 6.7 G/DL (6.0-8.5); TROPONIN I <0.02 NG/ML (<0.05)
[2017-03-23 13:43] LABS: SED RATE 17 MM/HR (0-15)
[2017-03-23] MEDS ORDERED: MIRALAX POWDER1 PKT PO (14:23)
[2017-03-23] MEDS ORDERED: MELATONIN10 M2 PO (14:23)
[2017-03-23] MEDS ORDERED: FOLIC ACID PO (14:24)
[2017-03-23] MEDS ORDERED: COUMADIN4 MG PO (14:25)
[2017-03-23] MEDS ORDERED: ASAB PO (14:25)
[2017-03-23] MEDS ORDERED: D.O.S.100 MG PO (14:27)
[2017-03-23] MEDS ORDERED: PRILO PO (14:31)
[2017-03-24 13:12] LABS: HEMATOCRIT 33.6 % (40.0-51.0); HEMOGLOBIN 10.8 g/dL (13.6-17.8); MEAN CORPUS HGB CONC 32.1 g/dL (32.0-36.0); MEAN CORPUSCULAR HEMOGLOB 26.2 pg (26.0-34.0); MEAN CORPUSCULAR VOLUME 81.6 fL (80-100); MEAN PLATELET VOLUME 9.1 fL (9.2-13.0); PLATELET COUNT 208 10/3/uL (150-400); RBC DISTRIBUTION WIDTH 17.2 % (12.0-16.0); RED CELL COUNT 4.12 10/6/uL (4.7-6.1)
[2017-03-24 13:14] LABS: MANUAL DIFF YES %; WHITE BLOOD CELLS 11.1 10/3/uL (4.5-10.5)
[2017-03-24 13:26] LABS: BUN (BLOOD UREA NITROGEN) 46 MG/DL (6-23); CHLORIDE, SERUM 107 MMOL/L (96-112); CO2 (CARBON DIOXIDE) 23 MMOL/L (24-34); GFR AFRICAN AMERICAN 31 ML/MIN (>=60); GFR NON AFRICAN AMERICAN 27 ML/MIN (>=60); GLUCOSE, SERUM 167 MG/DL (60-99); PHOSPHORUS, SERUM 2.3 MG/DL (2.5-4.5); POTASSIUM, SERUM 3.2 MMOL/L (3.5-5.3); SODIUM, SERUM 140 MMOL/L (135-148)
[2017-03-24 13:36] LABS: ANISOCYTOSIS 1+ (5-10/OIF) (0-5/OIF); BAND NEUTROPHILS 28 %; IMMATURE GRANS ABSOLUTE (CALC) 0.44 10/3/uL (0.0-0.11); LYMPHOCYTES 14 %; LYMPHOCYTES ABSOLUTE (CALC) 1.55 10/3/uL (0.67-4.30); METAMYELOCYTES 4 %; MONOCYTES 10 %; MONOCYTES ABSOLUTE (CALC) 1.11 10/3/uL (0.21-1.20); NEUTROPHILS ABSOLUTE (CALC) 7.99 10/3/uL (2.02-8.40); PLATELET ESTIMATE ADQ (ADEQUATE); SEGMENTED NEUTROPHIL (0) 44 %; TOTAL NUCLEATED CELLS 100
[2017-03-24 13:37] LABS: POLYCHROMASIA 1+ (2-5/OIF) (0-1/OIF)
[2017-03-25 12:39] LABS: HEMATOCRIT 36.2 % (40.0-51.0); HEMOGLOBIN 11.2 g/dL (13.6-17.8); MEAN CORPUS HGB CONC 30.9 g/dL (32.0-36.0); MEAN CORPUSCULAR HEMOGLOB 25.8 pg (26.0-34.0); MEAN CORPUSCULAR VOLUME 83.4 fL (80-100); MEAN PLATELET VOLUME 9.4 fL (9.2-13.0); PLATELET COUNT 199 10/3/uL (150-400); RBC DISTRIBUTION WIDTH 17.5 % (12.0-16.0); RED CELL COUNT 4.34 10/6/uL (4.7-6.1); WHITE BLOOD CELLS 9.2 10/3/uL (4.5-10.5)
[2017-03-25 12:40] LABS: MANUAL DIFF YES %
[2017-03-25 12:49] LABS: INTERNATIONAL NORMAL RATI 2.5 UNITS (-); PROTIME (NOT ORD) 26.4 SEC (12.0-14.5)
[2017-03-25 12:51] LABS: CALCIUM, SERUM 8.6 MG/DL (8.5-10.4); CHLORIDE, SERUM 104 MMOL/L (96-112); CO2 (CARBON DIOXIDE) 25 MMOL/L (24-34); CREATININE 2.43 MG/DL (0.70-1.30); GFR AFRICAN AMERICAN 30 ML/MIN (>=60); GFR NON AFRICAN AMERICAN 26 ML/MIN (>=60); POTASSIUM, SERUM 3.7 MMOL/L (3.5-5.3); SODIUM, SERUM 137 MMOL/L (135-148)
[2017-03-25 12:53] LABS: BUN (BLOOD UREA NITROGEN) 42 MG/DL (6-23); GLUCOSE, SERUM 262 MG/DL (60-99)
[2017-03-25 13:35] LABS: BAND NEUTROPHILS 13 %; LYMPHOCYTES 19 %; LYMPHOCYTES ABSOLUTE (CALC) 1.75 10/3/uL (0.67-4.30); MONOCYTES 13 %; NEUTROPHILS ABSOLUTE (CALC) 6.26 10/3/uL (2.02-8.40); PLATELET ESTIMATE ADQ (ADEQUATE); RBC MORPHOLOGY NORM (NORMAL); SEGMENTED NEUTROPHIL (0) 55 %; TOTAL NUCLEATED CELLS 100
[2017-03-26 07:10] LABS: HEMATOCRIT 35.5 % (40.0-51.0); HEMOGLOBIN 11.1 g/dL (13.6-17.8); MEAN CORPUS HGB CONC 31.3 g/dL (32.0-36.0); MEAN CORPUSCULAR HEMOGLOB 25.7 pg (26.0-34.0); MEAN CORPUSCULAR VOLUME 82.2 fL (80-100); MEAN PLATELET VOLUME 8.9 fL (9.2-13.0); PLATELET COUNT 174 10/3/uL (150-400); RBC DISTRIBUTION WIDTH 17.2 % (12.0-16.0); RED CELL COUNT 4.32 10/6/uL (4.7-6.1); WHITE BLOOD CELLS 10.6 10/3/uL (4.5-10.5)
[2017-03-26 07:11] LABS: MANUAL DIFF YES %
[2017-03-26 07:22] LABS: INTERNATIONAL NORMAL RATI 2.7 UNITS (-); PROTIME (NOT ORD) 28.6 SEC (12.0-14.5)
[2017-03-26 07:24] LABS: BUN (BLOOD UREA NITROGEN) 39 MG/DL (6-23); CALCIUM, SERUM 8.5 MG/DL (8.5-10.4); CHLORIDE, SERUM 109 MMOL/L (96-112); CO2 (CARBON DIOXIDE) 17 MMOL/L (24-34); CREATININE 2.53 MG/DL (0.70-1.30); GFR AFRICAN AMERICAN 29 ML/MIN (>=60); GFR NON AFRICAN AMERICAN 25 ML/MIN (>=60); GLUCOSE, SERUM 148 MG/DL (60-99); POTASSIUM, SERUM 3.7 MMOL/L (3.5-5.3); SODIUM, SERUM 137 MMOL/L (135-148)
[2017-03-26 07:58] LABS: BAND NEUTROPHILS 34 %; EOSINOPHILS 1 %; EOSINOPHILS ABSOLUTE (CALC) 0.11 10/3/uL (0.0-0.53); IMMATURE GRANS ABSOLUTE (CALC) 0.11 10/3/uL (0.0-0.11); LYMPHOCYTES 10 %; LYMPHOCYTES ABSOLUTE (CALC) 1.06 10/3/uL (0.67-4.30); METAMYELOCYTES 1 %; MONOCYTES 3 %; MONOCYTES ABSOLUTE (CALC) 0.32 10/3/uL (0.21-1.20); NEUTROPHILS ABSOLUTE (CALC) 9.01 10/3/uL (2.02-8.40); SEGMENTED NEUTROPHIL (0) 51 %; TOTAL NUCLEATED CELLS 100; TOXIC GRANULATION 1+
[2017-03-26 07:59] LABS: ANISOCYTOSIS 1+ (5-10/OIF) (0-5/OIF); PLATELET ESTIMATE ADQ (ADEQUATE); POLYCHROMASIA 1+ (2-5/OIF) (0-1/OIF)
[2017-03-26 08:00] LABS: BURR CELLS 1+ (3-10/OIF) (0-2/OIF); OVALOCYTES 1+ (3-10/OIF) (0-2/OIF); POIKILOCYTOSIS 1+ (5-10/OIF) (0-5/OIF)
[2017-03-27 05:37] LABS: BUN (BLOOD UREA NITROGEN) 36 MG/DL (6-23); CALCIUM, SERUM 8.1 MG/DL (8.5-10.4); CHLORIDE, SERUM 112 MMOL/L (96-112); CREATININE 2.22 MG/DL (0.70-1.30); GFR AFRICAN AMERICAN 34 ML/MIN (>=60); GFR NON AFRICAN AMERICAN 29 ML/MIN (>=60); POTASSIUM, SERUM 3.8 MMOL/L (3.5-5.3); SODIUM, SERUM 138 MMOL/L (135-148)
[2017-03-27 05:39] LABS: HEMOGLOBIN 9.8 g/dL (13.6-17.8); MEAN CORPUS HGB CONC 31.8 g/dL (32.0-36.0); MEAN CORPUSCULAR HEMOGLOB 25.8 pg (26.0-34.0); MEAN CORPUSCULAR VOLUME 81.1 fL (80-100); MEAN PLATELET VOLUME 9.1 fL (9.2-13.0); PLATELET COUNT 166 10/3/uL (150-400); RBC DISTRIBUTION WIDTH 17.2 % (12.0-16.0)
[2017-03-27 05:40] LABS: CO2 (CARBON DIOXIDE) 12 MMOL/L (24-34); GLUCOSE, SERUM 188 MG/DL (60-99)
[2017-03-27 05:41] LABS: HEMATOCRIT 30.8 % (40.0-51.0); MANUAL DIFF YES %
[2017-03-27 06:03] LABS: BAND NEUTROPHILS 9 %; EOSINOPHILS 1 %; EOSINOPHILS ABSOLUTE (CALC) 0.07 10/3/uL (0.0-0.53); LYMPHOCYTES 12 %; LYMPHOCYTES ABSOLUTE (CALC) 0.84 10/3/uL (0.67-4.30); MONOCYTES 4 %; MONOCYTES ABSOLUTE (CALC) 0.28 10/3/uL (0.21-1.20); NEUTROPHILS ABSOLUTE (CALC) 5.81 10/3/uL (2.02-8.40); SEGMENTED NEUTROPHIL (0) 74 %; TOTAL NUCLEATED CELLS 100
[2017-03-27 06:04] LABS: ANISOCYTOSIS 1+ (5-10/OIF) (0-5/OIF); PLATELET ESTIMATE ADQ (ADEQUATE)
[2017-03-27] MEDS ORDERED: CORDARONE PO (15:24)
== END 2017-03-27 16:29 | disposition home or self-care (01) | DRG 389 ==
LOC: ER 20:16 → 6NO 22:00
PROVIDERS: Emergency Medicine; Hospitalist; Internal Medicine; Nurse Practitioner Acute Care; Nurse Practitioner Family
DX: K56.7 Ileus, unspecified (principal); N17.9 Acute kidney failure, unspecified; E87.2 Acidosis; N18.4 Chronic kidney disease, stage 4 (severe); I48.1 Persistent atrial fibrillation; I50.22 Chronic systolic (congestive) heart failure; K57.30 Diverticulosis of large intestine without perforation or abscess without bleeding; I25.10 Atherosclerotic heart disease of native coronary artery without angina pectoris; I25.2 Old myocardial infarction; E29.1 Testicular hypofunction; E61.1 Iron deficiency; D47.2 Monoclonal gammopathy; K76.89 Other specified diseases of liver; I73.9 Peripheral vascular disease, unspecified; I69.398 Other sequelae of cerebral infarction; R26.9 Unspecified abnormalities of gait and mobility; K80.20 Calculus of gallbladder without cholecystitis without obstruction; G47.33 Obstructive sleep apnea (adult) (pediatric); N28.1 Cyst of kidney, acquired; N20.0 Calculus of kidney; I95.1 Orthostatic hypotension; E11.649 Type 2 diabetes mellitus with hypoglycemia without coma; Z95.5 Presence of coronary angioplasty implant and graft; Z95.0 Presence of cardiac pacemaker; Z95.4 Presence of other heart-valve replacement
CPT/HCPCS: 71010; 74000; 74020; 74176; 74250; 74270; 80048; 80053; 81001; 82378; 82962; 83605; 83690; 83735; 83880; 84100; 84443; 84484; 85025; 85610; 85652; 85730; 86140; 94640; 96374; 99285; A9270-GY; C9113; J2920